=== PATIENT | female | born 1950 | race Caucasian/White ===

== ENCOUNTER 2016-03-07 13:07 | Emergency (ER) | payer OTHER ==
[~2016-03-07] VITALS: Ht 182.9 cm; Wt 122.0 kg
[~2016-03-07 13:07] MED LIST: CHOL20009 PO; CLB/200 PO; CYAN10005 PO; METO50TA16 PO; PRLSR20 PO
[2016-03-07 13:21] VITALS: Ht 182.9 cm; Wt 122.0 kg
[2016-03-07] MEDS ORDERED: PRED20TA PO (13:45)
[2016-03-07] MEDS ORDERED: GABA-112 PO (13:45)
[2016-03-07] MEDS ORDERED: OXYCODONE HCL IR 5 MG TAB (IMMEDIATE RELEASE) PO STA (13:51)
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
[2016-03-07] MEDS ORDERED: OXYC1TAB3 PO (16:12)
[2016-03-07 16:25] VITALS: BP 140/81; PULSE 69; TEMP 36.5; O2SAT 97
== END 2016-03-07 16:30 | disposition home or self-care (01) ==
LOC: EDBD 13:07 → C.EDB 13:08
DX: S09.90XA Unspecified injury of head, initial encounter (principal); S16.1XXA Strain of muscle, fascia and tendon at neck level, initial encounter; Z96.653 Presence of artificial knee joint, bilateral; I10 Essential (primary) hypertension; F17.200 Nicotine dependence, unspecified, uncomplicated; V43.52XA Car driver injured in collision with other type car in traffic accident, initial encounter; Y93.89 Activity, other specified; Y92.89 Other specified places as the place of occurrence of the external cause; Y99.8 Other external cause status

== ENCOUNTER 2017-05-17 19:50 | Inpatient (IN) | payer OTHER ==
[~2017-05-17] VITALS: Ht 182.9 cm; Wt 130.7 kg
[~2017-05-17 19:50] MED LIST changes: -CHOL20009 PO; -CYAN10005 PO; +GABA-112 PO; +PRED20TA PO
[2017-05-17] MEDS ORDERED: AZITHROMYCIN 250 MG TAB ONE (21:42)
[2017-05-17] MEDS ORDERED: METHYLPREDNISOLONE 125 MG VIAL ONE (21:42)
[2017-05-17 23:46] LABS: BASO % 0.8 %; BASO ABS # 0.08 K/uL (0-0.2); EOS % 2.8 %; EOS ABS # 0.28 K/uL (0-0.5); HEMATOCRIT 44.3 % (37-47); IG# 0.01 K/uL (0.00-0.02); LYMPH % 28.3 %; LYMPH ABS # 2.79 K/uL (1.2-3.4); MEAN CELL VOLUME 90.4 fL (80-100); MEAN CORPUSCULAR HEMOGLOBIN 32.7 pg (25-34); MEAN CORPUSCULAR HGB CONC 36.1 g/dl (32-36); MEAN PLATELET VOLUME 10.4 fL (7.4-10.4); MONO % 5.5 %; MONO ABS # 0.54 K/uL (0.11-0.59); NEUT % 62.5 %; NEUT ABS # 6.17 K/uL (1.4-6.5); PLATELET COUNT 145 K/uL (130-400); RED CELL DISTRIBUTION WIDTH CV 13.5 % (11.5-14.5); RED CELL DISTRIBUTION WIDTH SD 44.1 fL (36.4-46.3); WHITE BLOOD COUNT 9.87 K/uL (4.8-10.8)
[2017-05-17 23:49] LABS: INFLUENZA B ANTIGEN Neg for Influ B (NEG)
[2017-05-17 23:50] LABS: ALBUMIN 3.3 gm/dl (3.4-5.0); ALKALINE PHOSPHATASE 158 U/L (45-117); ALT/SGPT 53 U/L (12-78); AST/SGOT 28 U/L (15-37); BLOOD UREA NITROGEN 15 mg/dl (7-18); CALCIUM 9.4 mg/dl (8.5-10.1); CARBON DIOXIDE 24 mmol/L (21-32); CKMB 1.5 ng/ml (0.5-3.6); CREATININE 1.17 mg/dl (0.60-1.20); GLUCOSE 158 mg/dl (70-99); LIPASE 140 U/L (73-393); POTASSIUM 4.2 mmol/L (3.5-5.1); SODIUM 136 mmol/L (136-145); TOTAL PROTEIN 7.7 gm/dl (6.4-8.2)
[2017-05-18] VITALS (12 sets, daily range): BP systolic 112–130; BP diastolic 70–85; PULSE 84–106; TEMP 36.4–36.9; O2SAT 90–96; Ht 182.9 cm; Wt 130.7 kg
--- NOTE | 2017-05-18 00:01 | EMERGENCY ROOM VISIT NOTE ---
History Report prepared by [place]: Coral Lopez Under the Supervision of: Dr. Sabino Garcia M.D. First contact with patient: 23:44 Chief Complaint: SHORTNESS OF BREATH Stated Complaint: SOB,PAIN History of Present Illness The patient is a 66 year old female who presents to the Emergency Room with complaints of worsening shortness of breath that has been going on for the last 4-5 days. She reports a history of COPD and being overweight. The patient states that she is not on oxygen at home, but she uses a nebulizer which helps reduce some of her symptom. She reports that she has been coughing up a large amount of mucous. The patient states that her current discomfort feels like COPD. She denies being on any blood thinners, but reports being a heavy smoker. Source of History: patient Onset: 4-5 days Position: other (respiratory) Quality: other (shortness of breath) Timing: worsening Associated Symptoms: + cough (large amounts of muscous) Review of Systems See HPI for pertinent positives & negatives. A total of 10 systems reviewed and were otherwise negative. Past Medical & Surgical Medical Problems: (1) COPD exacerbation (2) Elevated troponin (3) Hypertension Surgical Problems: (1) H/O total knee replacement Family History Patient reports no known family medical history. No pertinent family history. Social History Smoking Status: Current Every Day Smoker Alcohol Use: none Drug Use: none Marital Status: Housing Status: lives with family Occupation Status: employed Current/Historical Medications Scheduled Celecoxib (CeleBREX), 200 MG PO DAILY Metoprolol Tartrate (Lopressor) (Lopressor), 50 MG PO QPM Omeprazole (Prilosec), 20 MG PO BID Allergies Coded Allergies: No Known Allergies (Unverified , 03/07/16) Physical Exam Vital Signs Date Time Temp Pulse Resp B/P (MAP) Pulse Ox O2 Delivery O2 Flow Rate FiO2 05/18/17 01:52 111 19 93 Nasal Cannula 2.0 05/18/17 01:45 94 Nasal Cannula 2.0 05/18/17 00:52 112 26 91 Nasal Cannula 2.0 05/18/17 00:47 170/96 05/18/17 00:11 100 18 137/87 90 Room Air 05/17/17 23:25 103 Physical Exam GENERAL: Awake, alert, well-appearing, in no acute distress HENT: Normocephalic, atraumatic. Oropharynx unremarkable. EYES: Normal conjunctiva. Sclera non-icteric. NECK: Supple. No nuchal rigidity. FROM. No JVD. RESPIRATORY: Bilateral wheezes at the bases. CARDIAC: Regular rate, normal rhythm. Extremities warm and well perfused. Pulses equal. ABDOMEN: Soft, non-distended. No tenderness to palpation. No rebound or guarding. No masses. RECTAL: Deferred. MUSCULOSKELETAL: Chest examination reveals no tenderness. The back is symmetrical on inspection without obvious abnormality. There is no CVA tenderness to palpation. No joint edema. LOWER EXTREMITIES: Calves are equal size bilaterally and non-tender. No edema. No discoloration. NEURO: Normal sensorium. No sensory or motor deficits noted. SKIN: No rash or jaundice noted. Medical Decision & Procedures ER Provider Diagnostic Interpretation: CHEST ONE VIEW PORTABLE CLINICAL HISTORY: SOB dyspnea COMPARISON STUDY: No previous studies for comparison. FINDINGS: Moderate emphysematous change. Slight interstitial prominence left base. Lungs otherwise appear clear. There are no focal or consolidative infiltrates. IMPRESSION: Emphysematous change. Nonspecific interstitial prominence left base. The above report was generated using voice recognition software. It may contain grammatical, syntax or spelling errors. Laboratory Results Test 05/17/17 21:22 05/17/17 21:39 05/18/17 01:12 Estimated Average Glucose 192 mg/dl Hemoglobin A1c 8.3 % (4.5-5.6) Total Bilirubin 0.3 mg/dl (0.2-1) Direct Bilirubin < 0.1 mg/dl (0-0.2) Aspartate Amino Transf (AST/SGOT) 28 U/L (15-37) Alanine Aminotransferase (ALT/SGPT) 53 U/L (12-78) Alkaline Phosphatase 158 U/L (45-117) Total Creatine Kinase 43 U/L (26-192) Creatine Kinase MB 1.5 ng/ml (0.5-3.6) Creatine Kinase MB Ratio 3.5 (0-3.0) Total Protein 7.7 gm/dl (6.4-8.2) Albumin 3.3 gm/dl (3.4-5.0) Lipase 140 U/L (73-393) Influenza Type A Antigen Neg for Influ A (NEG) Influenza Type B Antigen Neg for Influ B (NEG) Influenza Type A (RT-PCR) Neg for Influ A (NEG) Influenza Type B (RT-PCR) Neg for Influ B (NEG) Magnesium Level 1.8 mg/dl (1.8-2.4) Troponin I 0.080 ng/ml (0-0.045) Thyroid Stimulating Hormone (TSH) 1.020 uIu/ml (0.300-4.500) Labs reviewed by ED physician. Medications Administered Medications (Trade) Dose Ordered Sig/Lilia Route Start Time Stop Time Status Last Admin Dose Admin Ipratropium [place] (Atrovent 0.02% 0.5MG/2.5ML Neb) 0.5 mg NOW STAT INH 05/18/17 01:51 05/18/17 01:52 DC 05/18/17 07:21 0.5 MG Levalbuterol (Xopenex 1.25MG/ 0.5ML Neb) 1.25 mg NOW STAT INH 05/18/17 01:51 05/18/17 01:52 DC 05/18/17 07:21 1.25 MG ECG Per My Interpretation Indication: SOB/dyspnea Rate (beats per minute): 102 Rhythm: sinus tachycardia Findings: 1st degree AV block, RBBB, other (Old septal infarct, no ST elevation or depression) ED Course 2110: Past medical records reviewed. The patient was evaluated in room A9. A complete history and physical examination was performed. 2307: I reevaluated the patient, who states she is feeling significantly better. Medical Decision Differential diagnosis: Etiologies such as infections, reactive airway disease, pneumonia, pneumothorax , COPD, CHF, cardiac ischemia, pulmonary embolism, musculoskeletal, gastrointestinal, as well as others were entertained. This is a 66-year-old female who presents the emergency department complaining of shortness of breath. The patient has a history of COPD and feels that this is a COPD exacerbation. She can notes that she cannot walk longer than 10 feet without becoming tired. She was given Solu-Medrol along with an hour-long breathing treatment here in the emergency department. I will note that the patient is feeling better however her troponin is elevated for this reason I discussed the case with the hospitalist service who agreed to admit the patient. Patient was in agreement with the treatment plan. Medication Reconcilliation Current Medication List: was personally reviewed by me Impression Primary Impression: Hypoxia Scribe Attestation The scribe's documentation has been prepared under my direction and personally reviewed by me in its entirety. I confirm that the note above accurately reflects all work, treatment, procedures, and medical decision making performed by me. Departure Information Dispostion Still a Patient Referrals Jacob Enciso M.D. (MEDICAL) (PCP) Patient Instructions My [facility]
[2017-05-18] MEDS ORDERED: OPTIRAY 320 IV PRN (01:00)
[2017-05-18] MEDS ORDERED: LEVALBUTEROL/IPRATROPIUM NEB INH STA (01:00)
[2017-05-18] MEDS ORDERED: LEVALBUTEROL/IPRATROPIUM NEB INH PRN (01:00)
[2017-05-18 01:37] LABS: PTT PATIENT 27.3 SECONDS (21.0-31.0)
[2017-05-18] MEDS ORDERED: IPRATROPIUM BROMIDE NEB SOLN 0.02% 2.5 ML VIAL INH STA (01:51)
[2017-05-18] MEDS ORDERED: LEVALBUTEROL 1.25MG/0.5ML NEB INH STA (01:51)
[2017-05-18] MEDS ORDERED: IPRATROPIUM BROMIDE NEB SOLN 0.02% 2.5 ML VIAL INH PRN (02:00)
[2017-05-18] MEDS ORDERED: LEVALBUTEROL 1.25MG/0.5ML NEB INH PRN (02:00)
[2017-05-18] MEDS ORDERED: ENOXAPARIN 40 MG/0.4 ML SYR SC SCH (02:15)
[2017-05-18] MEDS ORDERED: PROCHLORPERAZINE INJ 5 MG in SYRINGE 4 ML IV PRN (02:15)
[2017-05-18] MEDS ORDERED: ACETAMINOPHEN 325 MG TAB PO PRN (02:15)
[2017-05-18] MEDS ORDERED: TRAMADOL HCL 50 MG TAB PO PRN (02:15)
[2017-05-18] MEDS ORDERED: SODIUM CHLORIDE 0.9% 1000ML 1,000 ML IV ONE (02:15)
[2017-05-18] MEDS ORDERED: GUAIFENESIN 600 MG TABCR PO ONE (02:34)
[2017-05-18] MEDS ORDERED: HEPARIN IV BOLUS 7,000 UNIT in SYRINGE 0 ML IV ONE (03:45)
[2017-05-18] MEDS ORDERED: MAGNESIUM SULFATE 1GM / D5W 1 GM in PREMIXED IN D5W 100 ML IV ONE (03:45)
[2017-05-18 04:08] LABS: INFLUENZA A PCR Neg for Influ A (NEG); INFLUENZA B PCR Neg for Influ B (NEG)
[2017-05-18] MEDS: HEPARIN 25,000 UNIT/500ML D5W 500 ML IV SCH ×2 (04:26→21:46)
[2017-05-18] MEDS ORDERED: METOPROLOL TARTRATE 25 MG TAB PO ONE (05:37)
[2017-05-18] MEDS ORDERED: INSULIN ASPART 100 UNITS/ML 3 ML PEN SC ONE (05:52)
[2017-05-18] MEDS ORDERED: INSULIN GLARGINE SOLOSTAR 100 UNITS/ML 3 ML PEN SC ONE ×2 (05:52→07:47)
[2017-05-18] MEDS ORDERED: GLUCAGON FOR INJ 1 MG VIAL SQ PRN (06:00)
[2017-05-18] MEDS ORDERED: GLUCOSE 10 TABS/TUBE PO PRN (06:00)
[2017-05-18] MEDS ORDERED: DEXTROSE 50% 50 ML SYR IV PRN (06:00)
[2017-05-18] MEDS ORDERED: GLUCOSE 40% GEL 15 GM TUBE PO PRN (06:00)
--- NOTE | 2017-05-18 06:23 | DIAGNOSTIC IMAGING REPORT ---
VENOUS DOPPLER LWR EXT BILA HISTORY: Pain. Edema. leg swelling COMPARISON STUDY: None. FINDINGS: The right leg is negative for deep venous thrombosis. Left leg shows nonocclusive thrombus within the left popliteal vein. There is involvement of the proximal posterior tibial vein. All remaining deep venous structures of the left leg are unremarkable. IMPRESSION: 1. Right leg is negative for deep venous embolus. 2. The left leg is positive for deep venous thrombosis involving the left popliteal and proximal posterior tibial vein. The above report was generated using voice recognition software. It may contain grammatical, syntax or spelling errors. Electronically signed by: Maxwell Stephens M.D. 05/18/2017 6:21 AM Dictated Date/Time: 05/18/2017 6:17 AM
[2017-05-18 06:50] LABS: BASO % 0.3 %; BASO ABS # 0.02 K/uL (0-0.2); EOS % 0.3 %; EOS ABS # 0.02 K/uL (0-0.5); IG# 0.01 K/uL (0.00-0.02); LYMPH % 11.2 %; MONO % 1.5 %; MONO ABS # 0.11 K/uL (0.11-0.59); NEUT % 86.6 %; NEUT ABS # 6.16 K/uL (1.4-6.5)
--- NOTE | 2017-05-18 06:59 | DIAGNOSTIC IMAGING REPORT ---
CHEST ONE VIEW PORTABLE CLINICAL HISTORY: SOB dyspnea COMPARISON STUDY: No previous studies for comparison. FINDINGS: Moderate emphysematous change. Slight interstitial prominence left base. Lungs otherwise appear clear. There are no focal or consolidative infiltrates. IMPRESSION: Emphysematous change. Nonspecific interstitial prominence left base. The above report was generated using voice recognition software. It may contain grammatical, syntax or spelling errors. Electronically signed by: Maxwell Stephens M.D. 05/18/2017 6:57 AM Dictated Date/Time: 05/18/2017 6:56 AM
[2017-05-18 07:02] LABS: HEMOGLOBIN A1C 8.3 % (4.5-5.6)
[2017-05-18 07:03] LABS: CALCIUM 9.2 mg/dl (8.5-10.1); CREATININE 1.25 mg/dl (0.60-1.20)
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
[2017-05-18 07:36] LABS: HEMATOCRIT 44.3 % (37-47); HEMOGLOBIN 15.7 g/dL (12.0-16.0); MEAN CELL VOLUME 91.5 fL (80-100); MEAN CORPUSCULAR HEMOGLOBIN 32.4 pg (25-34); MEAN CORPUSCULAR HGB CONC 35.4 g/dl (32-36); PLATELET COUNT 152 K/uL (130-400); RED CELL DISTRIBUTION WIDTH CV 13.5 % (11.5-14.5); RED CELL DISTRIBUTION WIDTH SD 45.5 fL (36.4-46.3); WHITE BLOOD COUNT 7.12 K/uL (4.8-10.8)
--- NOTE | 2017-05-18 07:40 | DIAGNOSTIC IMAGING REPORT ---
CT ANGIOGRAM OF THE CHEST CLINICAL HISTORY: Dyspnea. Atypical chest pain. COMPARISON STUDY: Chest x-ray dated 05/09/2017. TECHNIQUE: Following the IV administration of 91 cc of Optiray 320, CT angiogram of the chest was performed from the upper abdomen to the thoracic inlet utilizing the pulmonary embolus protocol. Images are reviewed in the axial, sagittal, and coronal planes. 3-D MIPS images are created and assessed. IV contrast was administered without complication. A dose lowering technique was utilized adhering to the principles of ALARA. The examination is degraded by large body habitus, and by streak artifact from the body wall abutting the CT gantry. CT DOSE: 539.76 mGycm FINDINGS: Thyroid: Imaged portions of the thyroid gland appear mildly enlarged and heterogeneous. Small low-attenuation nodules are identified. The largest measures 1.6 cm seen in the left lobe on image #220. Thoracic aorta: There is mild atherosclerotic calcification of the thoracic aorta, which is normal in caliber and demonstrates standard 3-vessel arch anatomy. A small ductus bump is suggested. No dissection is seen. Pulmonary vasculature: The main pulmonary arteries appear dilated suggesting pulmonary artery hypertension. There are extensive bilateral pulmonary emboli. Thrombus is seen in the distal right main pulmonary artery. This extends into the right upper, middle, and lower lobe pulmonary arteries into segmental and subsegmental branches. Thrombus is seen within the distal left main pulmonary artery. This extends into the left upper and left lower lobe pulmonary arteries, and into segmental and subsegmental branches of the left lower lobe pulmonary artery. Heart: The heart is mildly enlarged and without pericardial effusion. Lungs and pleural spaces: Evaluation of lung parenchyma is modestly degraded by motion artifact. No airspace consolidation or pleural effusion is identified. Tiny calcified granulomas are present at the lung bases. There is minimal dependent atelectasis. The trachea and central airways are clear. Mediastinum: There is no mediastinal lymphadenopathy. Mallory: Clear. Axillae: There is no axillary lymphadenopathy. Upper abdomen: The liver is enlarged and steatotic. A tiny hiatal hernia is noted. 1.3 cm cyst arises from the upper pole of the right kidney. Skeletal structures: The skeletal structures are osteopenic. No lytic or blastic bony lesions are seen. Degenerative change and scoliosis are noted in the thoracic spine. IMPRESSION: 1. Extensive bilateral pulmonary emboli as above. 2. Cardiomegaly with evidence of pulmonary artery hypertension. 3. The lungs are clear. 4. Hepatic steatosis. 5. A 1.6 cm low-attenuation nodule is seen in the left thyroid lobe. Follow-up with a nonemergent thyroid ultrasound is recommended. 6. Additional findings as above. Electronically signed by: Fred Modi M.D. 05/18/2017 7:39 AM Dictated Date/Time: 05/18/2017 7:32 AM
[2017-05-18 08:14] LABS: POTASSIUM 4.5 mmol/L (3.5-5.1)
[2017-05-18] MEDS: DOXYCYCLINE HYCLATE 100 MG CAP PO SCH ×2 (08:20→21:22)
[2017-05-18] MEDS: PANTOprazole SOD 40 MG TAB PO SCH ×2 (08:20→21:22)
[2017-05-18] MEDS ORDERED: INSULIN PROTOCOL GOAL RANGE ONE (08:30)
[2017-05-18] MEDS ORDERED: MODERATE STRESS LEVEL ONE (08:30)
[2017-05-18] MEDS ORDERED: INSULIN IV INFUSION PROTOCOL SCH (08:46)
[2017-05-18] MEDS: IPRATROPIUM BROMIDE NEB SOLN 0.02% 2.5 ML VIAL INH SCH ×3 (09:00→19:06)
[2017-05-18] MEDS ORDERED: METOPROLOL TARTRATE 25 MG TAB PO SCH (09:00)
[2017-05-18] MEDS ORDERED: LEVALBUTEROL/IPRATROPIUM NEB INH SCH (09:00)
[2017-05-18] MEDS: LEVALBUTEROL 1.25MG/0.5ML NEB INH SCH ×3 (09:00→19:06)
[2017-05-18] MEDS ORDERED: INSULIN REGULAR 250 UNITS in SODIUM CHLORIDE 0.9% 250ML 250 ML IV SCH (09:30)
[2017-05-18] MEDS ORDERED: INSULIN HUMAN REGULAR IV BOLUS 3.5 UNIT in SYRINGE 0 ML IV SCH (09:30)
[2017-05-18 10:50] LABS: PTT PATIENT 58.1 SECONDS (21.0-31.0)
[2017-05-18] MEDS ORDERED: INSULIN ASPART 100 UNITS/ML 3 ML PEN SC SCH ×3 (11:00→12:00)
[2017-05-18] MEDS ORDERED: PERFLUTREN LIPID MICROSPHERE (DEFINITY) IV ONE (11:35)
[2017-05-18] MEDS: INSULIN ASPART 100 UNITS/ML 3 ML PEN SC SCH ×3 (11:53→21:00)
--- NOTE | 2017-05-18 16:40 | ECHOCARDIOGRAM REPORT ---
*NOTICE TO RECEIVING [employer] This information is strictly Confidential and protected under [place] law. [place] law prohibits you from making any further disclosure of this information unless further disclosure is expressly permitted by the written consent of the person to whom it pertains or is authorized by law. A general authorization for the release of medical or other information is not sufficient for this purpose. Hospital accepts no responsibility if the information is made available to any other person, INCLUDING THE PATIENT. Interpretation Summary * Name: MELINDA VÁSQUEZ Study Date: 05/18/2017 10:29 AM BP: 128/82 mmHg * Patient Location: 230-1 HR: 106 * : 1950 (M/d/yyyy) Gender: Female Height: 72 in * Age: 66 yrs Ethnicity: [place] Weight: 293 lb * Ordering Physician: Michael White * Referring Physician: Self, Referred * Performed By: Katey Mcpherson RDCS * * Reason For Study: Pulmonary Embolism, Right Heart Strain * BSA: 2.5 m2 * -- Conclusions -- * The left ventricular cavity is small. * There is mild concentric left ventricular hypertrophy. * No regional wall motion abnormalities noted. * Ejection Fraction = 65-70%. * The right ventricle is not well visualized. * The right ventricle is grossly normal size. * Right ventricular systolic pressure is elevated at 40-50mmHg. Procedure Details * A complete two-dimensional transthoracic echocardiogram was performed (2D, M-mode, Doppler and color flow Doppler). * The study was technically difficult. * There were technical limitations due to patient'spoor positioning * The study was technically difficult, but visualization was adequate with the administration of Definity ultrasound contrast. * A contrast injection of Definity was performed to improve assessment of LV function. * Contrast was injected into an intravenous site in the right arm. * One vial of Definity ultrasound contrast was diluted in normal saline to a total volume of 10 ml. A total of '1' ml of solution was administered during imaging. * Lot # [id number] of Definity utilized for procedure. * Expiration date 1APR19. * The attending nurse who injected the contrast agent was Martina Rodrigues RN. Left Ventricle * The left ventricular cavity is small. * There is mild concentric left ventricular hypertrophy. * Ejection Fraction = 65-70%. * No regional wall motion abnormalities noted. Right Ventricle * The right ventricle is not well visualized. * The right ventricle is grossly normal size. Tricuspid Valve * The tricuspid valve is not well visualized. * Right ventricular systolic pressure is elevated at 40-50mmHg. Aortic Valve * The aortic valve is tricuspid. The leaflet thickness if normal. There is no aortic stenosis, and no significant insufficiency. * Aortic valve sclerosis moderate, without significant aortic valvular stenosis. * There is no significant aortic regurgitation. Great Vessels * The aortic root is normal size. Left Ventricular Diastolic Function * Grade I diastolic dysfunction, (abnormal relaxation pattern). MMode 2D Measurements and Calculations IVSd 1.2 cm IVSs 1.3 cm LVIDd 2.8 cm LVIDs 1.9 cm LVPWd 1.1 cm LVPWs 1.3 cm IVS/LVPW 1.2 FS 32.7 % EDV(Teich) 29.3 ml ESV(Teich) 10.8 ml EF(Teich) 63.0 % EDV(cubed) 21.7 ml ESV(cubed) 6.6 ml EF(cubed) 69.5 % % IVS thick 0.76 % % LVPW thick 25.2 % LV mass(C)d 93.2 grams LV mass(C)dI 37.2 grams/m\S\2 LV mass(C)s 69.5 grams LV mass(C)sI 27.7 grams/m\S\2 SV(Teich) 18.5 ml SI(Teich) 7.4 ml/m\S\2 SV(cubed) 15.1 ml SI(cubed) 6.0 ml/m\S\2 Ao root diam 3.2 cm Ao root area 7.8 cm\S\2 ACS 1.9 cm LA dimension 3.5 cm asc Aorta Diam 3.1 cm LA/Ao 1.1 LVAd ap4 32.6 cm\S\2 LVLd ap4 8.2 cm EDV(MOD-sp4) 106.2 ml EDV(sp4-el) 110.6 ml LVAs ap4 16.8 cm\S\2 LVLs ap4 7.4 cm ESV(MOD-sp4) 33.7 ml ESV(sp4-el) 32.3 ml EF(MOD-sp4) 68.3 % EF(sp4-el) 70.8 % LVAd ap2 22.8 cm\S\2 LVLd ap2 8.4 cm EDV(MOD-sp2) 50.7 ml EDV(sp2-el) 52.6 ml LVAs ap2 11.6 cm\S\2 LVLs ap2 7.1 cm ESV(MOD-sp2) 16.7 ml ESV(sp2-el) 16.0 ml EF(MOD-sp2) 67.1 % EF(sp2-el) 69.6 % LVLd %diff 2.6 % EDV(MOD-bp) 74.5 ml LVLs %diff -4.15 % ESV(MOD-bp) 23.9 ml EF(MOD-bp) 67.9 % SV(MOD-sp4) 72.5 ml SI(MOD-sp4) 28.9 ml/m\S\2 SV(MOD-sp2) 34.0 ml SI(MOD-sp2) 13.6 ml/m\S\2 SV(MOD-bp) 50.5 ml SI(MOD-bp) 20.2 ml/m\S\2 SV(sp4-el) 78.2 ml SI(sp4-el) 31.2 ml/m\S\2 SV(sp2-el) 36.6 ml SI(sp2-el) 14.6 ml/m\S\2 Doppler Measurements and Calculations MV E max flores 103.7 cm/sec MV A max flores 40.5 cm/sec MV E/A 2.6 MV dec time 0.18 sec Ao V2 max 144.5 cm/sec Ao max PG 8.3 mmHg Ao max PG (full) 4.2 mmHg LV V1 max PG 4.1 mmHg LV V1 max 101.4 cm/sec PA V2 max 101.9 cm/sec PA max PG 4.2 mmHg TR max flores 326.8 cm/sec
--- NOTE | 2017-05-18 19:52 | Progress Note ---
Medicine Progress Note Date & Time of Visit: May 18, 2017 at 10:40 . Subjective Admitted last evening with cough and shortness of breath. Found to have bilateral pulmonary emboli and started on IV heparin. Received IV methylprednisolone in the ED. Blood sugars this morning greater than 400. No prior history of diabetes. Cough, dyspnea, chest discomfort improved. No fever. No nausea or vomiting. No diarrhea. No urinary symptoms. Patient concerned about duration of hospital stay and medication expenses related to her new diagnoses. . Objective Last 8 Hrs Date Time Temp Pulse Resp B/P (MAP) Pulse Ox O2 Delivery O2 Flow Rate FiO2 05/18/17 19:29 36.6 98 20 112/74 (87) 93 Room Air 05/18/17 19:09 91 16 94 Room Air 05/18/17 16:00 90 Room Air 05/18/17 15:59 96 90 05/18/17 15:40 36.5 96 22 123/84 (97) 90 Room Air 05/18/17 14:23 84 16 94 Room Air 05/18/17 12:11 36.9 22 130/85 (100) 95 Room Air 05/18/17 12:00 Nasal Cannula 2.0 Physical Exam: General-lying in bed, no acute distress Lungs-few scattered rhonchi; no respiratory distress Cardiovascular- RRR; no gallop appreciated; no JVD; trace pretibial edema Abdomen- + bowel sounds, soft, nontender Extremities- no cyanosis; no calf tenderness Neuro- alert, oriented Skin- warm & dry . Laboratory Results: Last 24 Hours Test 05/17/17 21:22 05/17/17 21:39 05/18/17 01:12 05/18/17 05:35 White Blood Count 9.87 K/uL 7.12 K/uL Red Blood Count 4.90 M/uL 4.84 M/uL Hemoglobin 16.0 g/dL 15.7 g/dL Hematocrit 44.3 % 44.3 % Mean Corpuscular Volume 90.4 fL 91.5 fL Mean Corpuscular Hemoglobin 32.7 pg 32.4 pg Mean Corpuscular Hemoglobin Concent 36.1 g/dl 35.4 g/dl Platelet Count 145 K/uL 152 K/uL Mean Platelet Volume 10.4 fL 11.0 fL Neutrophils (%) (Auto) 62.5 % 86.6 % Lymphocytes (%) (Auto) 28.3 % 11.2 % Monocytes (%) (Auto) 5.5 % 1.5 % Eosinophils (%) (Auto) 2.8 % 0.3 % Basophils (%) (Auto) 0.8 % 0.3 % Neutrophils # (Auto) 6.17 K/uL 6.16 K/uL Lymphocytes # (Auto) 2.79 K/uL 0.80 K/uL Monocytes # (Auto) 0.54 K/uL 0.11 K/uL Eosinophils # (Auto) 0.28 K/uL 0.02 K/uL Basophils # (Auto) 0.08 K/uL 0.02 K/uL RDW Standard Deviation 44.1 fL 45.5 fL RDW Coefficient of Variation 13.5 % 13.5 % Immature Granulocyte % (Auto) 0.1 % 0.1 % Immature Granulocyte # (Auto) 0.01 K/uL 0.01 K/uL Sodium Level 136 mmol/L 131 mmol/L Potassium Level 4.2 mmol/L mmol/L Chloride Level 104 mmol/L 100 mmol/L Carbon Dioxide Level 24 mmol/L 21 mmol/L Anion Gap 8.0 mmol/L 10.0 mmol/L Blood Urea Nitrogen 15 mg/dl 17 mg/dl Creatinine 1.17 mg/dl 1.25 mg/dl Estimated GFR () 56.2 51.9 Estimated GFR (Non- 48.5 44.8 BUN/Creatinine Ratio 13.1 13.4 Random Glucose 158 mg/dl 440 mg/dl Estimated Average Glucose 192 mg/dl Hemoglobin A1c 8.3 % Calcium Level 9.4 mg/dl 9.2 mg/dl Total Bilirubin 0.3 mg/dl Direct Bilirubin < 0.1 mg/dl Aspartate Amino Transf (AST/SGOT) 28 U/L Alanine Aminotransferase (ALT/SGPT) 53 U/L Alkaline Phosphatase 158 U/L Total Creatine Kinase 43 U/L Creatine Kinase MB 1.5 ng/ml Creatine Kinase MB Ratio 3.5 Troponin I 0.121 ng/ml 0.080 ng/ml Total Protein 7.7 gm/dl Albumin 3.3 gm/dl Lipase 140 U/L Influenza Type A Antigen Neg for Influ A Influenza Type B Antigen Neg for Influ B Influenza Type A (RT-PCR) Neg for Influ A Influenza Type B (RT-PCR) Neg for Influ B Activated Partial Thromboplast Time 27.3 SECONDS Partial Thromboplastin Ratio 1.1 Magnesium Level 1.8 mg/dl Thyroid Stimulating Hormone (TSH) 1.020 uIu/ml Large Platelets 1+ Est Creatinine Clear Calc Drug Dose 67.9 ml/min Beta-Hydroxybutyric Acid mg/dL Test 05/18/17 05:39 05/18/17 05:42 05/18/17 07:49 05/18/17 08:51 Bedside Glucose 410 mg/dl 429 mg/dl 463 mg/dl Potassium Level 4.5 mmol/L Beta-Hydroxybutyric Acid 1.52 mg/dL Test 05/18/17 10:21 05/18/17 10:41 05/18/17 11:38 05/18/17 12:35 Activated Partial Thromboplast Time 58.1 SECONDS Partial Thromboplastin Ratio 2.2 Bedside Glucose 343 mg/dl 295 mg/dl 329 mg/dl Test 05/18/17 13:30 05/18/17 14:35 05/18/17 16:00 05/18/17 17:00 Bedside Glucose 272 mg/dl 147 mg/dl 133 mg/dl 129 mg/dl Test 05/18/17 18:02 05/18/17 18:59 Bedside Glucose 178 mg/dl 111 mg/dl Assessment & Plan PULMONARY EMBOLI / DVT LLE (present on admission) Presented with cough and dyspnea. CTA chest demonstrated bilateral pulmonary emboli. Venous duplex of lower extremities demonstrated DVT involving the left popliteal and posterior tibial veins. Started on IV heparin. Options for oral anticoagulation discussed with patient. Check echocardiogram. Continue IV heparin pending decisions regarding oral therapy. ELEVATED TROPONIN Serum troponin = 0.121. Most likely secondary to pulmonary embolism. HYPERTENSION Continue metoprolol. COPD Smoking cessation counseling. HYPERGLYCEMIA / DM TYPE 2 Random blood sugar in ED 158. Hemoglobin A1c 8.3. No prior history of diabetes. Serum glucose this morning 440 after receiving intravenous methylprednisolone. IV insulin therapy per protocol until blood sugars are under better control, then transition to basal bolus SQ insulin per protocol. Diabetes education. THYROID NODULE Incidental finding on CT chest. Will need outpatient follow-up with ultrasound. VTE PROPHYLAXIS Not indicated in light of acute DVT/PE. DISPOSITION Expected discharge to home. Family Medicine follow-up with Dr. Enciso. . Current Inpatient Medications: Current Inpatient Medications Medications (Trade) Dose Ordered Sig/Lilia Route Start Time Stop Time Status Last Admin Dose Admin Ioversol (Optiray 320) 100 ml UD PRN IV 05/18/17 01:00 05/22/17 00:59 Ipratropium [place] (Atrovent 0.02% 0.5MG/2.5ML Neb) 0.5 mg Q4H PRN INH 05/18/17 02:00 06/17/17 01:59 Levalbuterol (Xopenex 1.25MG/ 0.5ML Neb) 1.25 mg Q4H PRN INH 05/18/17 02:00 06/17/17 01:59 Acetaminophen (Tylenol Tab) 650 mg Q4H PRN PO 05/18/17 02:15 06/17/17 02:14 Tramadol HCl (Ultram Tab) 25 mg Q6H PRN PO 05/18/17 02:15 06/17/17 02:14 Prochlorperazine Edisylate 5 mg/ Syringe 5 ml @ 5 mls/min Q6H PRN IV 05/18/17 02:15 06/17/17 02:14 Doxycycline Hyclate (Vibramycin Cap) 100 mg BID PO 05/18/17 09:00 05/25/17 08:59 05/18/17 08:20 100 MG Pantoprazole Sodium (Protonix Tab) 40 mg BID PO 05/18/17 09:00 06/17/17 08:59 05/18/17 08:20 40 MG Guaifenesin (Mucinex Contr Rel Tab) 600 mg Q12 PO 05/18/17 21:00 06/17/17 20:59 Heparin Sodium/ Dextrose 500 ml @ 32 mls/hr [id number] IV 05/18/17 03:45 06/17/17 03:44 05/18/17 04:26 32 MLS/HR Ipratropium [place] (Atrovent 0.02% 0.5MG/2.5ML Neb) 0.5 mg Q6R INH 05/18/17 09:00 06/17/17 08:59 05/18/17 19:06 0.5 MG Levalbuterol (Xopenex 1.25MG/ 0.5ML Neb) 1.25 mg Q6R INH 05/18/17 09:00 06/17/17 08:59 05/18/17 19:06 1.25 MG Metoprolol Tartrate (Lopressor Tab) 25 mg BID PO 05/18/17 21:00 06/17/17 20:59 Glucose (Glucose 40% Gel) 15-30 GRAMS 15 GRAMS... UD PRN PO 05/18/17 06:00 06/17/17 05:59 Glucose (Glucose Chew Tab) 4-8 Tablets 4 Tabl... UD PRN PO 05/18/17 06:00 06/17/17 05:59 Dextrose (Dextrose 50% 50ML Syringe) 25-50ML OF 50% DW IV FOR... UD PRN IV 05/18/17 06:00 06/17/17 05:59 Glucagon (Glucagon Inj) 1 mg UD PRN SQ 05/18/17 06:00 06/17/17 05:59 Prednisone (PredniSONE TAB) 20 mg DAILY PO 05/19/17 09:00 05/23/17 08:59 Insulin Human Regular 250 units/ Sodium Chloride 252.5 ml @ 0 mls/hr Q24H IV 05/18/17 09:30 06/17/17 09:29 05/18/17 09:28 3.3 MLS/HR Insulin Aspart (novoLOG ASPART) SLIDING SCALE G... ACHS SC 05/18/17 11:00 06/17/17 10:59 05/18/17 17:15 7 UNITS
[2017-05-18] MEDS ORDERED: METOPROLOL TARTRATE 50 MG TAB PO SCH (21:00)
[2017-05-18] MEDS ORDERED: WARFARIN SOD 10 MG TAB PO ONE (21:00)
[2017-05-18] MEDS: METOPROLOL TARTRATE 25 MG TAB PO SCH (21:21)
[2017-05-18] MEDS: GUAIFENESIN 600 MG TABCR PO SCH (21:22)
[2017-05-18] MEDS: INSULIN GLARGINE SOLOSTAR 100 UNITS/ML 3 ML PEN SC SCH (21:26)
[2017-05-18] MEDS ORDERED: GUAIFENESIN SUGAR FREE 200 MG/10 ML UDC PO ONE (23:03)
[2017-05-18] MEDS ORDERED: GUAIFENESIN SUGAR FREE 200 MG/10 ML UDC PO PRN (23:15)
[2017-05-19] VITALS (11 sets, daily range): BP systolic 112–133; BP diastolic 75–87; PULSE 64–100; TEMP 36.4–37; O2SAT 90–96
[2017-05-19] MEDS: IPRATROPIUM BROMIDE NEB SOLN 0.02% 2.5 ML VIAL INH SCH ×4 (01:57→19:19)
[2017-05-19] MEDS: LEVALBUTEROL 1.25MG/0.5ML NEB INH SCH ×4 (01:57→19:19)
[2017-05-19 05:56] LABS: PTT PATIENT 41.3 SECONDS (21.0-31.0)
[2017-05-19] MEDS ORDERED: HEPARIN IV BOLUS 4,000 UNIT in SYRINGE 0 ML IV ONE (06:15)
[2017-05-19 06:25] LABS: CALCIUM 8.8 mg/dl (8.5-10.1); CREATININE 0.91 mg/dl (0.60-1.20); POTASSIUM 3.6 mmol/L (3.5-5.1)
[2017-05-19] MEDS: HEPARIN 25,000 UNIT/500ML D5W 500 ML IV SCH (06:34)
[2017-05-19] MEDS: PANTOprazole SOD 40 MG TAB PO SCH ×2 (08:58→22:34)
[2017-05-19] MEDS: GUAIFENESIN 600 MG TABCR PO SCH ×2 (08:59→22:35)
[2017-05-19] MEDS: METOPROLOL TARTRATE 25 MG TAB PO SCH ×2 (08:59→22:34)
[2017-05-19] MEDS: DOXYCYCLINE HYCLATE 100 MG CAP PO SCH ×2 (08:59→22:35)
[2017-05-19] MEDS ORDERED: INSULIN GLARGINE SOLOSTAR 100 UNITS/ML 3 ML PEN SC SCH ×2 (09:00)
[2017-05-19] MEDS: INSULIN ASPART 100 UNITS/ML 3 ML PEN SC SCH ×4 (09:02→21:00)
[2017-05-19] MEDS: INSULIN GLARGINE SOLOSTAR 100 UNITS/ML 3 ML PEN SC SCH ×2 (09:03→22:36)
[2017-05-19] MEDS ORDERED: LOVENOX TEACHING KIT SCH (10:00)
[2017-05-19] MEDS: ENOXAPARIN 120 MG/0.8 ML SYR SQ SCH ×2 (10:48→22:34)
--- NOTE | 2017-05-19 23:18 | Progress Note ---
Medicine Progress Note Date & Time of Visit: May 19, 2017 at 16:00 . Subjective Feels better. Cough, dyspnea, chest discomfort improved. No fever. No nausea, vomiting, diarrhea. No abnormal bruising or bleeding. Blood sugars improved. . Objective Last 8 Hrs Date Time Temp Pulse Resp B/P (MAP) Pulse Ox O2 Delivery O2 Flow Rate FiO2 05/19/17 20:37 93 Room Air 05/19/17 19:30 36.6 87 20 127/84 (98) 92 Room Air 05/19/17 19:25 70 14 93 Room Air 05/19/17 16:00 Room Air Physical Exam: General- lying in bed, no acute distress Lungs-essentially clear; no respiratory distress Cardiovascular- RRR; no gallop appreciated; no JVD; trace pretibial edema Abdomen- + bowel sounds, soft, nontender Extremities- no cyanosis; no calf tenderness Neuro- alert, oriented Skin- warm & dry . Laboratory Results: Last 24 Hours Test 05/19/17 05:32 05/19/17 06:42 05/19/17 11:48 05/19/17 16:30 Prothrombin Time 10.3 SECONDS Prothromb Time International Ratio 1.0 Activated Partial Thromboplast Time 41.3 SECONDS Partial Thromboplastin Ratio 1.6 Sodium Level 137 mmol/L Potassium Level 3.6 mmol/L Chloride Level 105 mmol/L Carbon Dioxide Level 23 mmol/L Anion Gap 9.0 mmol/L Blood Urea Nitrogen 21 mg/dl Creatinine 0.91 mg/dl Est Creatinine Clear Calc Drug Dose 93.2 ml/min Estimated GFR () 76.2 Estimated GFR (Non- 65.7 BUN/Creatinine Ratio 22.8 Random Glucose 172 mg/dl Calcium Level 8.8 mg/dl Bedside Glucose 157 mg/dl 160 mg/dl 100 mg/dl Test 05/19/17 20:24 Bedside Glucose 146 mg/dl Assessment & Plan PULMONARY EMBOLI / DVT LLE (present on admission) Presented with cough and dyspnea. CTA chest demonstrated bilateral pulmonary emboli. Venous duplex of lower extremities demonstrated DVT involving the left popliteal and posterior tibial veins. Started on IV heparin. Options for oral anticoagulation discussed with patient. Echocardiogram demonstrated mildly elevated pressures, no right ventricular enlargement. Transition from IV heparin to SQ enoxaparin. Started on warfarin therapy rather than DOAC because of body weight. ELEVATED TROPONIN Serum troponin = 0.121. Most likely secondary to pulmonary embolism. HYPERTENSION Continue metoprolol. COPD Smoking cessation counseling. HYPERGLYCEMIA / DM TYPE 2 Random blood sugar in ED 158. Hemoglobin A1c 8.3. No prior history of diabetes. Serum glucose this morning 440 after receiving intravenous methylprednisolone. Received IV insulin therapy. Transitioned to basal bolus SQ insulin per protocol. Fasting blood sugar this morning 157. Diabetes education. THYROID NODULE Incidental finding on CT chest. Check TSH. Will need outpatient follow-up with ultrasound. VTE PROPHYLAXIS Not indicated in light of acute DVT/PE. DISPOSITION Expected discharge to home. Family Medicine follow-up with Dr. Enciso. . Current Inpatient Medications: Current Inpatient Medications Medications (Trade) Dose Ordered Sig/Lilia Route Start Time Stop Time Status Last Admin Dose Admin Ioversol (Optiray 320) 100 ml UD PRN IV 05/18/17 01:00 05/22/17 00:59 Ipratropium [place] (Atrovent 0.02% 0.5MG/2.5ML Neb) 0.5 mg Q4H PRN INH 05/18/17 02:00 06/17/17 01:59 Levalbuterol (Xopenex 1.25MG/ 0.5ML Neb) 1.25 mg Q4H PRN INH 05/18/17 02:00 06/17/17 01:59 Acetaminophen (Tylenol Tab) 650 mg Q4H PRN PO 05/18/17 02:15 06/17/17 02:14 Tramadol HCl (Ultram Tab) 25 mg Q6H PRN PO 05/18/17 02:15 06/17/17 02:14 Prochlorperazine Edisylate 5 mg/ Syringe 5 ml @ 5 mls/min Q6H PRN IV 05/18/17 02:15 06/17/17 02:14 Doxycycline Hyclate (Vibramycin Cap) 100 mg BID PO 05/18/17 09:00 05/25/17 08:59 05/19/17 22:35 100 MG Pantoprazole Sodium (Protonix Tab) 40 mg BID PO 05/18/17 09:00 06/17/17 08:59 05/19/17 22:34 40 MG Guaifenesin (Mucinex Contr Rel Tab) 600 mg Q12 PO 05/18/17 21:00 06/17/17 20:59 05/19/17 22:35 600 MG Ipratropium [place] (Atrovent 0.02% 0.5MG/2.5ML Neb) 0.5 mg Q6R INH 05/18/17 09:00 06/17/17 08:59 05/19/17 19:19 0.5 MG Levalbuterol (Xopenex 1.25MG/ 0.5ML Neb) 1.25 mg Q6R INH 05/18/17 09:00 06/17/17 08:59 05/19/17 19:19 1.25 MG Metoprolol Tartrate (Lopressor Tab) 25 mg BID PO 05/18/17 21:00 06/17/17 20:59 05/19/17 22:34 25 MG Glucose (Glucose 40% Gel) 15-30 GRAMS 15 GRAMS... UD PRN PO 05/18/17 06:00 06/17/17 05:59 Glucose (Glucose Chew Tab) 4-8 Tablets 4 Tabl... UD PRN PO 05/18/17 06:00 06/17/17 05:59 Dextrose (Dextrose 50% 50ML Syringe) 25-50ML OF 50% DW IV FOR... UD PRN IV 05/18/17 06:00 06/17/17 05:59 Glucagon (Glucagon Inj) 1 mg UD PRN SQ 05/18/17 06:00 06/17/17 05:59 Insulin Glargine (Lantus Solostar Pen) BSG LANTUS UNITS S... BID SC 05/18/17 21:00 06/17/17 20:59 05/19/17 22:36 25 UNITS Insulin Aspart (novoLOG ASPART) SLIDING SCALE G... ACHS SC 05/18/17 21:00 06/17/17 20:59 05/19/17 17:19 4 UNITS Guaifenesin (Robitussin Sugar Free Syrup) 200 mg Q6H PRN PO 05/18/17 23:15 06/17/17 23:14 05/19/17 22:34 200 MG Enoxaparin Sodium (Lovenox Inj) 120 mg Q12@1000,2200 SQ 05/19/17 10:00 06/18/17 09:59 05/19/17 22:34 120 MG
[2017-05-20] VITALS (10 sets, daily range): BP systolic 120–126; BP diastolic 76–88; PULSE 73–108; TEMP 36.5–36.6; O2SAT 90–95
[2017-05-20] MEDS: IPRATROPIUM BROMIDE NEB SOLN 0.02% 2.5 ML VIAL INH SCH ×3 (01:46→14:53)
[2017-05-20] MEDS: LEVALBUTEROL 1.25MG/0.5ML NEB INH SCH ×3 (01:46→14:53)
[2017-05-20 05:57] LABS: INR 1.2 (0.9-1.1)
[2017-05-20 06:23] LABS: CALCIUM 8.8 mg/dl (8.5-10.1); CREATININE 0.95 mg/dl (0.60-1.20); POTASSIUM 3.7 mmol/L (3.5-5.1)
[2017-05-20] MEDS ORDERED: METFORMIN HCL 500 MG TAB PO SCH (07:30)
[2017-05-20] MEDS: INSULIN ASPART 100 UNITS/ML 3 ML PEN SC SCH ×2 (08:18→11:51)
[2017-05-20] MEDS: DOXYCYCLINE HYCLATE 100 MG CAP PO SCH (08:20)
[2017-05-20] MEDS: METOPROLOL TARTRATE 25 MG TAB PO SCH (08:21)
[2017-05-20] MEDS: GUAIFENESIN 600 MG TABCR PO SCH (08:21)
[2017-05-20] MEDS: PANTOprazole SOD 40 MG TAB PO SCH (08:21)
[2017-05-20] MEDS: INSULIN GLARGINE SOLOSTAR 100 UNITS/ML 3 ML PEN SC SCH (08:23)
[2017-05-20] MEDS ORDERED: WARFARIN SOD 10 MG TAB PO ONE (10:45)
[2017-05-20] MEDS: ENOXAPARIN 120 MG/0.8 ML SYR SQ SCH (11:58)
[2017-05-20] MEDS ORDERED: ENOX1INJ13 SQ (12:21)
[2017-05-20] MEDS ORDERED: GLC500 PO (12:21)
[2017-05-20] MEDS ORDERED: WARF-246 PO (12:21)
--- NOTE | 2017-05-20 12:40 | Progress Note ---
Medicine Progress Note Date & Time of Visit: May 20, 2017 at 12:40 . Subjective Doing well. Ambulating without chest pain or dyspnea. Blood sugars improved. Would like to go home. . Objective Last 8 Hrs Date Time Temp Pulse Resp B/P (MAP) Pulse Ox O2 Delivery O2 Flow Rate FiO2 05/20/17 12:00 Room Air 05/20/17 12:00 95 Room Air 05/20/17 10:51 36.5 73 20 120/76 (91) 94 Room Air 05/20/17 08:00 93 Room Air 05/20/17 07:31 36.6 108 20 124/87 (99) 92 Room Air 05/20/17 07:24 80 14 90 Room Air Physical Exam: General- lying in bed, no acute distress Lungs- essentially clear; no respiratory distress Cardiovascular- RRR; no gallop appreciated; no JVD; trace pretibial edema Abdomen- + bowel sounds, soft, nontender Extremities- no cyanosis; no calf tenderness Neuro- alert, oriented Skin- warm & dry . Laboratory Results: Last 24 Hours Test 05/19/17 16:30 05/19/17 20:24 05/20/17 05:19 05/20/17 07:56 Bedside Glucose 100 mg/dl 146 mg/dl 141 mg/dl Prothrombin Time 12.5 SECONDS Prothromb Time International Ratio 1.2 Sodium Level 138 mmol/L Potassium Level 3.7 mmol/L Chloride Level 106 mmol/L Carbon Dioxide Level 23 mmol/L Anion Gap 9.0 mmol/L Blood Urea Nitrogen 18 mg/dl Creatinine 0.95 mg/dl Est Creatinine Clear Calc Drug Dose 89.9 ml/min Estimated GFR () 72.3 Estimated GFR (Non- 62.4 BUN/Creatinine Ratio 18.5 Random Glucose 128 mg/dl Calcium Level 8.8 mg/dl Test 05/20/17 10:49 Bedside Glucose 129 mg/dl Assessment & Plan PULMONARY EMBOLI / DVT LLE (present on admission) Presented with cough and dyspnea. CTA chest demonstrated bilateral pulmonary emboli. Venous duplex of lower extremities demonstrated DVT involving the left popliteal and posterior tibial veins. Started on IV heparin. Options for oral anticoagulation discussed with patient. Echocardiogram demonstrated elevated RV systolic pressure of 40-50 mm, no right ventricular enlargement. Transitioned from IV heparin to SQ enoxaparin. Started on warfarin therapy rather than DOAC because of body weight. Discharged on enoxaparin 120 mg SQ every 12 hours until INR therapeutic for at least 2 days. Discharge on warfarin 7.5 mg p.o. daily with further dosing per [facility]. Duration of anticoagulation to be determined; at least 6 months of therapy indicated given extent of thromboemboli. Mother has history of venous thromboembolism and is on warfarin therapy. Outpatient hematology consultation mended to determine if further outpatient testing warranted and to make recommendations regarding duration of anticoagulation. Patient advised to discuss cancer screening with her PCP to make certain that she is up-to-date on routine recommendations; she is to report any new or worrisome symptoms. ELEVATED TROPONIN Serum troponin = 0.121. Most likely secondary to pulmonary embolism. HYPERTENSION Continue metoprolol. COPD Smoking cessation counseling. HYPERGLYCEMIA / DM TYPE 2 Random blood sugar in ED 158. Hemoglobin A1c 8.3. No prior history of diabetes. Serum glucose 05/18 was 440 after receiving intravenous methylprednisolone. Received IV insulin therapy. Transitioned to basal bolus SQ insulin per protocol. Fasting blood sugar today = 141. Received diabetes education. Given glucometer and instructions on its use. Discharged on metformin 500 mg p.o. twice daily. Ongoing diabetes education/support. THYROID NODULE 1.6 cm low-attenuation nodule noted in the left lobe of thyroid as incidental finding on CT chest. TSH normal. Will need outpatient follow-up with ultrasound. VTE PROPHYLAXIS Not indicated in light of acute DVT/PE. DISPOSITION Discharge to home. Family Medicine follow-up with Dr. Enciso. . Current Inpatient Medications: Current Inpatient Medications Medications (Trade) Dose Ordered Sig/Lilia Route Start Time Stop Time Status Last Admin Dose Admin Ioversol (Optiray 320) 100 ml UD PRN IV 05/18/17 01:00 05/22/17 00:59 Ipratropium [place] (Atrovent 0.02% 0.5MG/2.5ML Neb) 0.5 mg Q4H PRN INH 05/18/17 02:00 06/17/17 01:59 Levalbuterol (Xopenex 1.25MG/ 0.5ML Neb) 1.25 mg Q4H PRN INH 05/18/17 02:00 06/17/17 01:59 Acetaminophen (Tylenol Tab) 650 mg Q4H PRN PO 05/18/17 02:15 06/17/17 02:14 Tramadol HCl (Ultram Tab) 25 mg Q6H PRN PO 05/18/17 02:15 06/17/17 02:14 Prochlorperazine Edisylate 5 mg/ Syringe 5 ml @ 5 mls/min Q6H PRN IV 05/18/17 02:15 06/17/17 02:14 Doxycycline Hyclate (Vibramycin Cap) 100 mg BID PO 05/18/17 09:00 05/25/17 08:59 05/20/17 08:20 100 MG Pantoprazole Sodium (Protonix Tab) 40 mg BID PO 05/18/17 09:00 06/17/17 08:59 05/20/17 08:21 40 MG Guaifenesin (Mucinex Contr Rel Tab) 600 mg Q12 PO 05/18/17 21:00 06/17/17 20:59 05/20/17 08:21 600 MG Ipratropium [place] (Atrovent 0.02% 0.5MG/2.5ML Neb) 0.5 mg Q6R INH 05/18/17 09:00 06/17/17 08:59 05/20/17 07:01 0.5 MG Levalbuterol (Xopenex 1.25MG/ 0.5ML Neb) 1.25 mg Q6R INH 05/18/17 09:00 06/17/17 08:59 05/20/17 07:00 1.25 MG Metoprolol Tartrate (Lopressor Tab) 25 mg BID PO 05/18/17 21:00 06/17/17 20:59 05/20/17 08:21 25 MG Glucose (Glucose 40% Gel) 15-30 GRAMS 15 GRAMS... UD PRN PO 05/18/17 06:00 06/17/17 05:59 Glucose (Glucose Chew Tab) 4-8 Tablets 4 Tabl... UD PRN PO 05/18/17 06:00 06/17/17 05:59 Dextrose (Dextrose 50% 50ML Syringe) 25-50ML OF 50% DW IV FOR... UD PRN IV 05/18/17 06:00 06/17/17 05:59 Glucagon (Glucagon Inj) 1 mg UD PRN SQ 05/18/17 06:00 06/17/17 05:59 Insulin Glargine (Lantus Solostar Pen) BSG LANTUS UNITS S... BID SC 05/18/17 21:00 06/17/17 20:59 05/19/17 22:36 25 UNITS Insulin Aspart (novoLOG ASPART) SLIDING SCALE G... ACHS SC 05/18/17 21:00 06/17/17 20:59 05/19/17 17:19 4 UNITS Guaifenesin (Robitussin Sugar Free Syrup) 200 mg Q6H PRN PO 05/18/17 23:15 06/17/17 23:14 05/19/17 22:34 200 MG Enoxaparin Sodium (Lovenox Inj) 120 mg Q12@1000,2200 SQ 05/19/17 10:00 06/18/17 09:59 05/20/17 11:58 120 MG Metformin HCl (Glucophage Tab) 500 mg BIDM PO 05/20/17 07:30 06/19/17 07:29 05/20/17 08:17 500 MG
--- NOTE | 2017-05-20 13:01 | Discharge Instructions ---
Discharge Instructions Date of Service May 20, 2017. Admission Reason for Admission: trouble breathing . Discharge Discharge Diagnosis / Problem: (1) Pulmonary embolism (2) DVT, lower extremity, distal VTE Date & Time Date of VTE Diagnosis: May 18, 2017 Time of VTE Diagnosis: 07:32 Discharge Goals Goal(s): Improve disease control Activity Recommendations Activity Limitations: as noted below Lifting Limitations: gradually increase as tolerated . Instructions / Follow-Up Instructions / Follow-Up APPOINTMENTS: FAMILY MEDICINE 05/24/2017 2:00 PM Jacob Enciso MD OTHER INSTRUCTIONS: Scans showed blood clots in both lungs and blood clot in your left leg. Take enoxaparin (Lovenox) injections twice a day at 9 AM and 9 PM until [facility] tells you to stop. Take warfarin (Coumadin) as directed. Initial dose will be 1 + 1/2 pill (7.5 mg ) daily starting on 05/21/17. Best to take it in the evening. Please discuss referral to counter stacker (blood specialist) with Dr. Enciso to determine how long you should take the blood thinners. Should avoid anti-inflammatory medicines like ibuprofen (Advil, Motrin), naproxen (Aleve), celecoxib (Celebrex) and other similar medications when you are taking blood thinners - they can cause dangerous bleeding ulcers. CT of chest showed a lump in your thyroid gland. Please ask Dr. Enciso to schedule an outpatient ultrasound to check it out further. Please review cancer screening tests with Dr. Enciso to make certain that tests are up to date. You have diabetes. Take metformin 500 mg twice a day with food. Check your blood sugars each morning and before supper. It would be helpful if you lose weight. Your blood sugars, blood pressure, and energy level will all be better. Watch your diet, avoid too many carbohydrates and fats. You could have sleep apnea. Please discuss sleep study with Dr. Enciso It is very important that you quit smoking. Please discuss further with Dr. Enciso. Seek medical attention if you have: * temperature above 101 * chest pain or trouble breathing * abdominal pain, nausea, vomiting * diarrhea, dark stools or bloody stools * blood sugars above 250 or below 80 * any unanswered questions or concerns Call 911 if symptoms are severe. Call if you have any questions or problems. My cell # is [phone]. You can also reach a [facility] hospitalist on duty at [facility] 24 hours a day by calling [phone]. Please take good care of yourself. Luke Huffman Medication instructions for warfarin (Coumadin): * Warfarin is a medicine prescribed to prevent blood clots * Warfarin will thin your blood and help prevent new clots * Take your medications exactly as directed * Never skip a dose. Never take a double dose. If you miss a dose, take it as soon as you remember * It is important for your doctor to monitor your prothrombin time (PT). This is a lab test * Keep your appointment for lab tests Risk of Adverse Drug Reactions and Interactions: * Warfarin increases your risk of bleeding * The food you eat and other medications you take can affect how Warfarin works in your body * Ask your doctor about daily aspirin therapy * It is very important to talk with your doctor about all of the other medicines , antibiotics, vitamins or herbal products that you are taking * All of your medication must be approved by your doctor, including new medicines, as well as medicines you have taken before you started taking Warfarin Diet: * In order for Warfarin to work properly, it is important to keep your intake of Vitamin K as consistent as possible * You should avoid any sudden change in Vitamin K intake * Report any significant changes in your diet or weight to your doctor Call your Primary Care doctor if you experience any of the following: * Swelling or Pain in your leg * Sudden, continuous pain deep in a muscle * Pain that worsens when you are active or when you stand still for a long time * Chest Pain * Sudden Shortness of Breath * Rapid or pounding heart beat * Fainting * Dizziness * Cough with blood or bloody sputum * Sweating more than normal * Bruises * Heavy or uncontrolled bleeding * Blood in your urine, stool or vomit * Black or tarry stools Caring for Your Self at Home: * Avoid sitting, standing or lying down for long periods without moving your legs and feet * When traveling by car, stop to get out and move around at least once every 3 hours * On long airplane, train or bus rides, get up and move around when possible * If you can't get up, wiggle your toes and tighten your calves to keep your blood moving Follow Up: It is important for you to keep your follow up appointments with your medical provider. Current Hospital Diet Patient's current hospital diet: AHA Diet (Heart Healthy), Diabetes Type 2 Diet Discharge Diet Recommended Diet: AHA Diet (Heart Healthy), Diabetes Type 2 Diet Procedures Procedures Performed: CT scan chest- blood clots in both lungs, nodule in thyroid gland, fatty liver ultrasound legs- blood clot in left leg ultrasound heart (echocardiogram) - increased pressures in pulmonary artery Pending Studies Studies pending at discharge: no Laboratory Results Hemoglobin A1c Test 05/17/17 21:22 Range/Units Estimated Average Glucose 192 mg/dl Hemoglobin A1c 8.3 H 4.5-5.6 % Medical Emergencies . Who to Call and When: Medical Emergencies: If at any time you feel your situation is an emergency, please call 911 immediately. . Non-Emergent Contact Non-Emergency issues call your: Primary Care Provider, Hospital Doctor . . "Provider Documentation" section prepared by Luek Huffman. . VTE Core Measure Reason no anticoag overlap I/P: Treatment provided - N/A Reason no anticoag overlap @DC: Treatment provided - N/A
[2017-05-20] MEDS ORDERED: ACET-1138 PO (13:05)
[2017-05-20] MEDS ORDERED: LANC-393 (13:13)
[2017-05-20] MEDS ORDERED: glucometer strips (13:15)
[2017-05-20] MEDS ORDERED: BLOO1KIT92 (13:17)
--- NOTE | 2017-05-22 08:15 | Discharge Summary ---
Discharge Summary Date of Service May 22, 2017. Discharge Summary Admission Date: May 18, 2017 at 01:58 Discharge Date: May 20, 2017 Discharge Disposition: Home Principal Diagnosis: bilateral pulmonary emboli (present on admission) DVT left popliteal and posterior tibial veins (present on admission) . Secondary Diagnoses/Problems: OTHER ACUTE / NEW DIAGNOSES: diabetes mellitus type 2, uncontrolled hyperglycemia thyroid nodule elevated right ventricular systolic pressures Chronic Medical Problems: Hypertension GERD COPD Obesity, morbid Surgical Problems: (1) H/O total knee replacement Status: Chronic . Procedures: Cardiac monitoring Intravenous medications CTA chest Venous duplex lower extremities Echocardiogram, transthoracic . Pending Studies/Follow-Up: Please arrange for outpatient US thyroid re: thyroid nodule. Please arrange for diabetic education. Please consider referral to Hematology regarding pulmonary emboli, family history VTE. Please arrange for outpatient sleep study re: pulmonary hypertension. . Medication Reconciliation New Medications: Acetaminophen (Tylenol Extra Strength) 500 Mg Tab 1000 MG PO Q8 PRN for Pain, #60 TAB Blood Glucose Monitoring Suppl ([employer]touch Verio W/Device) 1 Kit Kit BTL N/A, #1 12 Refills Glucometer strips only (has OneTouch Verio glucometer). Check blood sugars twice a day before breakfast and dinner. Enoxaparin Sodium (Lovenox) 120 Mg/0.8 Ml Inj 120 MG SQ Q12, #10 SYR Inject twice a day at 9 AM and 9 PM. Lancets ([employer]touch Delica Lancets) 1 Mis Mis BOX N/A, #1 12 Refills Check blood sugars twice a day before breakfast and supper. Warfarin Sodium (Warfarin Sodium) 5 Mg Tab 0 PO UD, #60 TAB 5 Refills Dose will vary. Initial dose is 1 + 1/2 pill (7.5 mg) daily starting 05/21/17. Metformin HCl (Metformin HCl) 500 Mg Tab 500 MG PO BIDM, #60 TAB 5 Refills Continued Medications: Metoprolol Tartrate (Lopressor) (Lopressor) 50 Mg Tab 50 MG PO QPM, TAB Omeprazole (Prilosec) 20 Mg Capcr 20 MG PO BID, 0 Refills Discontinued Medications: Celecoxib (CeleBREX) 200 Mg Cap 200 MG PO DAILY Admission Information HPI (per Admitting provider): History obtained from patient and records. Medical history significant for COPD, ongoing tobacco abuse, hypertension, hyperlipidemia, sleep disturbance per records. Recent confinement last 2011 under orthopedic service for right knee surgery. A few days history of cough symptoms, productive of yellow sputum. Possible sick contacts. 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 No chest pain, increasing shortness of breath. Usual leg swelling. No recent prolonged travel. Brought to the Emergency Room. Received DuoNeb, Solu-Medrol, azithromycin for COPD exacerbation. . Physical Exam (per Admitting): VITAL SIGNS: Blood pressure noted to be 124/85, pulse rate 107, RR 26, later 21, temperature to be obtained. GENERAL: Noted to be obese. No respiratory distress, anxious. SKIN: Normal color, warm. HEENT: [place] palpebral conjunctivae. No ptosis. Dry mucosa. NECK: Short, supple. CHEST: Decreased breath sounds. No tenderness. HEART: Tachycardic. No murmur. ABDOMEN: Some distention, nontender. EXTREMITIES: Bilateral lower extremity edema, no tenderness. No other gross deformities. NEUROLOGIC: Coherent. No gross focality. . Hospital Course PULMONARY EMBOLI / DVT LLE (present on admission) Presented with cough and dyspnea. CTA chest demonstrated bilateral pulmonary emboli. Venous duplex of lower extremities demonstrated DVT involving the left popliteal and posterior tibial veins. Started on IV heparin. Options for oral anticoagulation discussed with patient. Echocardiogram demonstrated elevated RV systolic pressure of 40-50 mm, no right ventricular enlargement. Transitioned from IV heparin to SQ enoxaparin. Started on warfarin therapy rather than DOAC because of body weight. Discharged on enoxaparin 120 mg SQ every 12 hours until INR therapeutic for at least 2 days. Discharge on warfarin 7.5 mg p.o. daily with further dosing per [facility]. Duration of anticoagulation to be determined; at least 6 months of therapy indicated given extent of thromboemboli. Mother has history of venous thromboembolism and is on warfarin therapy. Outpatient hematology consultation mended to determine if further outpatient testing warranted and to make recommendations regarding duration of anticoagulation. Patient advised to discuss cancer screening with her PCP to make certain that she is up-to-date on routine recommendations; she is to report any new or worrisome symptoms. ELEVATED TROPONIN Serum troponin = 0.121. Most likely secondary to pulmonary embolism. HYPERTENSION Continue metoprolol. COPD Smoking cessation counseling. PULMONARY HYPERTENSION RV systolic pressures 40-50 mm. Pulmonary hypertension may be secondary to COPD, sleep apnea, obesity hypoventilation syndrome, and/or pulmonary emboli. Outpatient sleep study recommended for further evaluation of possible sleep apnea. HYPERGLYCEMIA / DM TYPE 2 Random blood sugar in ED 158. Hemoglobin A1c 8.3. No prior history of diabetes. Serum glucose 05/18 was 440 after receiving intravenous methylprednisolone. Received IV insulin therapy. Transitioned to basal bolus SQ insulin per protocol. Fasting blood sugar today = 141. Received diabetes education. Given glucometer and instructions on its use. Discharged on metformin 500 mg p.o. twice daily. Ongoing diabetes education/support. THYROID NODULE 1.6 cm low-attenuation nodule noted in the left lobe of thyroid as incidental finding on CT chest. TSH normal. Will need outpatient follow-up with ultrasound. MORBID OBESITY Weight 130.7 kg, BMI 39.1 kg/m. Importance of weight loss discussed. AHA, diabetic diet. SMOKING Importance of smoking cessation discussed. Ongoing counseling recommended. VTE PROPHYLAXIS Not indicated in light of acute DVT/PE. DISPOSITION Discharge to home. Family Medicine follow-up with Dr. Enciso. . Total time spent on discharge = 45 min. This includes examination of the patient, discharge planning, medication reconciliation, and communication with other providers. . Discharge Instructions Date of Service May 20, 2017. Admission Reason for Admission: trouble breathing . Discharge Discharge Diagnosis / Problem: (1) Pulmonary embolism (2) DVT, lower extremity, distal VTE Date & Time Date of VTE Diagnosis: May 18, 2017 Time of VTE Diagnosis: 07:32 Discharge Goals Goal(s): Improve disease control Activity Recommendations Activity Limitations: as noted below Lifting Limitations: gradually increase as tolerated . Instructions / Follow-Up Instructions / Follow-Up APPOINTMENTS: FAMILY MEDICINE 05/24/2017 2:00 PM Jacob Enciso MD OTHER INSTRUCTIONS: Scans showed blood clots in both lungs and blood clot in your left leg. Take enoxaparin (Lovenox) injections twice a day at 9 AM and 9 PM until [facility] tells you to stop. Take warfarin (Coumadin) as directed. Initial dose will be 1 + 1/2 pill (7.5 mg ) daily starting on 05/21/17. Best to take it in the evening. Please discuss referral to sales data analyst (blood specialist) with Dr. Enciso to determine how long you should take the blood thinners. Should avoid anti-inflammatory medicines like ibuprofen (Advil, Motrin), naproxen (Aleve), celecoxib (Celebrex) and other similar medications when you are taking blood thinners - they can cause dangerous bleeding ulcers. CT of chest showed a lump in your thyroid gland. Please ask Dr. Enciso to schedule an outpatient ultrasound to check it out further. Please review cancer screening tests with Dr. Enciso to make certain that tests are up to date. You have diabetes. Take metformin 500 mg twice a day with food. Check your blood sugars each morning and before supper. It would be helpful if you lose weight. Your blood sugars, blood pressure, and energy level will all be better. Watch your diet, avoid too many carbohydrates and fats. You could have sleep apnea. Please discuss sleep study with Dr. Enciso It is very important that you quit smoking. Please discuss further with Dr. Enciso. Seek medical attention if you have: * temperature above 101 * chest pain or trouble breathing * abdominal pain, nausea, vomiting * diarrhea, dark stools or bloody stools * blood sugars above 250 or below 80 * any unanswered questions or concerns Call 911 if symptoms are severe. Call if you have any questions or problems. My cell # is [phone]. You can also reach a [facility] hospitalist on duty at [facility] 24 hours a day by calling [phone]. Please take good care of yourself. Luke Huffman Medication instructions for warfarin (Coumadin): * Warfarin is a medicine prescribed to prevent blood clots * Warfarin will thin your blood and help prevent new clots * Take your medications exactly as directed * Never skip a dose. Never take a double dose. If you miss a dose, take it as soon as you remember * It is important for your doctor to monitor your prothrombin time (PT). This is a lab test * Keep your appointment for lab tests Risk of Adverse Drug Reactions and Interactions: * Warfarin increases your risk of bleeding * The food you eat and other medications you take can affect how Warfarin works in your body * Ask your doctor about daily aspirin therapy * It is very important to talk with your doctor about all of the other medicines , antibiotics, vitamins or herbal products that you are taking * All of your medication must be approved by your doctor, including new medicines, as well as medicines you have taken before you started taking Warfarin Diet: * In order for Warfarin to work properly, it is important to keep your intake of Vitamin K as consistent as possible * You should avoid any sudden change in Vitamin K intake * Report any significant changes in your diet or weight to your doctor Call your Primary Care doctor if you experience any of the following: * Swelling or Pain in your leg * Sudden, continuous pain deep in a muscle * Pain that worsens when you are active or when you stand still for a long time * Chest Pain * Sudden Shortness of Breath * Rapid or pounding heart beat * Fainting * Dizziness * Cough with blood or bloody sputum * Sweating more than normal * Bruises * Heavy or uncontrolled bleeding * Blood in your urine, stool or vomit * Black or tarry stools Caring for Your Self at Home: * Avoid sitting, standing or lying down for long periods without moving your legs and feet * When traveling by car, stop to get out and move around at least once every 3 hours * On long airplane, train or bus rides, get up and move around when possible * If you can't get up, wiggle your toes and tighten your calves to keep your blood moving Follow Up: It is important for you to keep your follow up appointments with your medical provider. Current Hospital Diet Patient's current hospital diet: AHA Diet (Heart Healthy), Diabetes Type 2 Diet Discharge Diet Recommended Diet: AHA Diet (Heart Healthy), Diabetes Type 2 Diet Procedures Procedures Performed: CT scan chest- blood clots in both lungs, nodule in thyroid gland, fatty liver ultrasound legs- blood clot in left leg ultrasound heart (echocardiogram) - increased pressures in pulmonary artery Pending Studies Studies pending at discharge: no Laboratory Results Hemoglobin A1c Test 05/17/17 21:22 Range/Units Estimated Average Glucose 192 mg/dl Hemoglobin A1c 8.3 H 4.5-5.6 % Medical Emergencies . Who to Call and When: Medical Emergencies: If at any time you feel your situation is an emergency, please call 911 immediately. . Non-Emergent Contact Non-Emergency issues call your: Primary Care Provider, Hospital Doctor . . "Provider Documentation" section prepared by Luke Huffman. . VTE Core Measure Reason no anticoag overlap I/P: Treatment provided - N/A Reason no anticoag overlap @DC: Treatment provided - N/A . Additional Copies To Jacob Enciso M.D. (MEDICAL)
== END 2017-05-20 15:39 | disposition home or self-care (01) | DRG 299 ==
LOC: C.EDA 19:50 → C.2T 05-18 01:58
PROVIDERS: ADMIT Internal Medicine; ATTEND Hospitalist
DX: I82.432 Acute embolism and thrombosis of left popliteal vein (principal); I26.99 Other pulmonary embolism without acute cor pulmonale; I82.442 Acute embolism and thrombosis of left tibial vein; E11.65 Type 2 diabetes mellitus with hyperglycemia; I27.29 Other secondary pulmonary hypertension; J44.9 Chronic obstructive pulmonary disease, unspecified; I10 Essential (primary) hypertension; E04.1 Nontoxic single thyroid nodule; E66.01 Morbid (severe) obesity due to excess calories; F17.200 Nicotine dependence, unspecified, uncomplicated; Z51.81 Encounter for therapeutic drug level monitoring; Z79.899 Other long term (current) drug therapy; Z68.39 Body mass index [BMI] 39.0-39.9, adult; Z82.49 Family history of ischemic heart disease and other diseases of the circulatory system

== ENCOUNTER 2017-07-07 21:15 | Emergency (ER) | payer OTHER ==
[~2017-07-07] VITALS: Ht 180.3 cm; Wt 136.0 kg
[~2017-07-07 21:15] MED LIST changes: +ACET-1138 PO; +BLOO1KIT92; -CLB/200 PO; +ENOX1INJ13 SQ; -GABA-112 PO; +GLC500 PO; +LANC-393; -PRED20TA PO; +WARF-246 PO
[2017-07-07 21:16] VITALS: TEMP 36.4; Ht 180.3 cm; Wt 136.0 kg
[2017-07-07] MEDS ORDERED: ALBUT/IPRATROP 3MG/0.5MG NEB 3 ML VIAL INH STA (21:28)
[2017-07-07 21:30] VITALS: O2SAT 97
--- NOTE | 2017-07-07 21:30 | EMERGENCY ROOM VISIT NOTE ---
History Report prepared by Wicho: Cher Gao Under the Supervision of: Dr. Fred Caro M.D. First contact with patient: 21:19 Chief Complaint: SHORTNESS OF BREATH Stated Complaint: SOB History of Present Illness The patient is a 66 year old female who presents to the Emergency Room with complaints of worsening shortness of breath for the past day. She admits to a history of multiple previous PE's and is currently on blood thinners. She believes her last INR was 2.5 on June 28. The patient admits to a productive cough and states she uses a Nebulizer at home. She denies any fevers. She did experience some chest pain yesterday. She denies any recent sick contacts. She has experienced no recent vomiting or diarrhea. 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 A total of 10 systems reviewed and were otherwise negative. Past Medical & Surgical Medical Problems: (1) COPD (chronic obstructive pulmonary disease) (2) Diabetes mellitus, type 2 (3) GERD (gastroesophageal reflux disease) (4) History of DVT of lower extremity (5) History of pulmonary embolism (6) Hypertension (7) Obesity, morbid (8) Pulmonary hypertension (9) Thyroid nodule Surgical Problems: (1) H/O total knee replacement Family History Patient reports no known family medical history. Social History Smoking Status: Current Every Day Smoker Alcohol Use: none Drug Use: none Marital Status: Housing Status: lives with family Occupation Status: employed Current/Historical Medications Scheduled Doxycycline Hyclate (Vibramycin), 100 MG PO BID Fluconazole (Fluconazole), 100 MG PO DAILY Metformin HCl (Metformin HCl), 500 MG PO BIDM Metoprolol Tartrate (Lopressor), 25 MG PO BID Omeprazole (Prilosec), 20 MG PO BID Sumatriptan Succinate (Sumatriptan Succinate), 50 MG PO PRN UD Warfarin Sodium (Coumadin), 2.5 MG PO MWF Warfarin Sodium (Coumadin), 5 MG PO 4XWK Scheduled PRN Acetaminophen (Tylenol Extra Strength), 1,000 MG PO Q8 PRN for Pain Allergies Coded Allergies: No Known Allergies (Unverified , 03/07/16) Physical Exam Vital Signs Date Time Temp Pulse Resp B/P (MAP) Pulse Ox O2 Delivery O2 Flow Rate FiO2 07/08/17 00:00 77 18 138/87 96 Room Air 07/07/17 23:15 88 20 151/88 98 Room Air 07/07/17 21:33 81 07/07/17 21:30 97 Room Air 07/07/17 21:24 Room Air 07/07/17 21:16 36.4 99 24 149/97 91 Room Air Physical Exam GENERAL: Patient is in no acute distress. HEENT: No acute trauma, normocephalic atraumatic, mucous membranes moist, no nasal congestion, no scleral icterus. NECK: No stridor, no adenopathy, no meningismus, trachea is midline. LUNGS: Diminished breath sounds bilaterally, no wheezing or rhonchi, breath sounds are equal, no respiratory distress. HEART: Without murmurs gallops or rubs, regular rate and rhythm. ABDOMEN: Soft, nontender, bowel sounds positive, no hernias, no peritonitis. EXTREMITIES: No cyanosis, mild bilateral pedal edema, full range of motion of all the joints without pain or difficulty, no signs for acute trauma. NEUROLOGIC: Oriented x 3, no acute motor or sensory deficits, no focal weakness. SKIN: No rash, no jaundice, no diaphoresis. Medical Decision & Procedures ER Provider Diagnostic Interpretation: Radiology results as stated below per my review and radiologist interpretation: CHEST ONE VIEW PORTABLE CLINICAL HISTORY: Shortness of breath, cough. COMPARISON STUDY: 05/09/2017 FINDINGS: The heart is mildly enlarged. There is slight basilar interstitial thickening. There are slightly low lung volumes. There is no overt failure. There are no pleural effusions. There is no lobar consolidation. IMPRESSION: Mild interstitial thickening. No evidence of lobar consolidation Electronically signed by: Karan Mancilla M.D. 07/07/2017 9:45 PM CTA CHEST: Compared to 05/18/17. No large central PE. Evaluation of peripheral vessels is limited by motion artifact. Small focal low attenuation in the right interlobar artery (image [id number]) and right upper lobe ( series 400, images 52-53), query chronic/residual PE. Small filling defect versus artifact also noted in the right middle lobe branch (image [id number]). No aortic aneurysm or dissection. Probable mild atelectasis. No pneumothorax or pleural effusion. Query punctate nonobstructing left renal calculus (image 2-1). Additional incidental findings similar to prior study. Radiologist: Cynthia Goins M.D. Laboratory Results 07/07/17 21:26 Red Blood Count 4.71, Mean Corpuscular Volume 91.5, Mean Corpuscular Hemoglobin 31.6, Mean Corpuscular Hemoglobin Concent 34.6, Mean Platelet Volume 9.5, Neutrophils (%) (Auto) 55.8, Lymphocytes (%) (Auto) 36.7, Monocytes (%) (Auto) 4.9, Eosinophils (%) (Auto) 1.8, Basophils (%) (Auto) 0.7, Neutrophils # (Auto) 4.84, Lymphocytes # (Auto) 3.19, Monocytes # (Auto) 0.43, Eosinophils # (Auto) 0.16, Basophils # (Auto) 0.06 07/07/17 21:26 Test 07/07/17 21:26 White Blood Count 8.69 K/uL (4.8-10.8) Red Blood Count 4.71 M/uL (4.2-5.4) Hemoglobin 14.9 g/dL (12.0-16.0) Hematocrit 43.1 % (37-47) Mean Corpuscular Volume 91.5 fL (80-100) Mean Corpuscular Hemoglobin 31.6 pg (25-34) Mean Corpuscular Hemoglobin Concent 34.6 g/dl (32-36) Platelet Count 205 K/uL (130-400) Mean Platelet Volume 9.5 fL (7.4-10.4) Neutrophils (%) (Auto) 55.8 % Lymphocytes (%) (Auto) 36.7 % Monocytes (%) (Auto) 4.9 % Eosinophils (%) (Auto) 1.8 % Basophils (%) (Auto) 0.7 % Neutrophils # (Auto) 4.84 K/uL (1.4-6.5) Lymphocytes # (Auto) 3.19 K/uL (1.2-3.4) Monocytes # (Auto) 0.43 K/uL (0.11-0.59) Eosinophils # (Auto) 0.16 K/uL (0-0.5) Basophils # (Auto) 0.06 K/uL (0-0.2) RDW Standard Deviation 46.7 fL (36.4-46.3) RDW Coefficient of Variation 13.9 % (11.5-14.5) Immature Granulocyte % (Auto) 0.1 % Immature Granulocyte # (Auto) 0.01 K/uL (0.00-0.02) Prothrombin Time 22.3 SECONDS (9.0-12.0) Prothromb Time International Ratio 2.2 (0.9-1.1) Activated Partial Thromboplast Time 40.1 SECONDS (21.0-31.0) Partial Thromboplastin Ratio 1.5 Anion Gap 9.0 mmol/L (3-11) Est Creatinine Clear Calc Drug Dose 85.5 ml/min Estimated GFR () 68.8 Estimated GFR (Non- 59.4 BUN/Creatinine Ratio 14.9 (10-20) Calcium Level 8.5 mg/dl (8.5-10.1) Total Bilirubin 0.3 mg/dl (0.2-1) Aspartate Amino Transf (AST/SGOT) 22 U/L (15-37) Alanine Aminotransferase (ALT/SGPT) 40 U/L (12-78) Alkaline Phosphatase 124 U/L (45-117) Troponin I < 0.015 ng/ml (0-0.045) Pro-B-Type Natriuretic Peptide 22 pg/ml (0-900) Total Protein 7.4 gm/dl (6.4-8.2) Albumin 3.3 gm/dl (3.4-5.0) Globulin 4.1 gm/dl (2.5-4.0) Albumin/Globulin Ratio 0.8 (0.9-2) Laboratory results reviewed by me. Medications Administered Medications (Trade) Dose Ordered Sig/Lilia Route Start Time Stop Time Status Last Admin Dose Admin Albuterol/ Ipratropium (Duoneb) 3 ml NOW STAT INH 07/07/17 21:28 07/07/17 21:31 DC 07/07/17 21:44 3 ML Doxycycline Hyclate (Vibramycin Cap) 100 mg ONE ONCE PO 07/08/17 00:00 07/08/17 00:01 DC 07/08/17 00:01 100 MG ECG Per My Interpretation Indication: SOB/dyspnea Rate (beats per minute): 94 Rhythm: normal sinus Findings: no ectopy, other (LVH, no ST elevation, no PVC) ED Course 2120: The patient was evaluated in room A11. A complete history and physical exam was performed. 2127: DuoNeb 3 ml INH. 2299: I reevaluated the patient. She is currently in CT. I will check back. 2326: I reevaluated the patient. She feels much better after the DuoNeb and is resting comfortably. 2356: I reevaluated the patient. She is resting comfortably. I discussed her results and discharge instructions and she verbalized complete understanding and agreement. 0000: Vibramycin 100 mg PO. Medical Decision The differential diagnoses considered include recurrent pulmonary embolism's, bronchitis, pneumonia, CHF, cardiac ischemia, anemia and electrolyte imbalance. There is no leukocytosis or concerning anemia. No significant electrolyte abnormality or kidney failure. Alk phos is slightly elevated. INR is therapeutic for someone using Coumadin. EKG shows a normal sinus rhythm with LVH, no acute ischemia. Cardiac enzyme testing 1 is not consistent with acute cardiac injury. Chest film does not show pneumonia, free air or pneumothorax. There was no CHF. Chest CT does show some residual pulmonary emboli but looking back at the reading from the CT last month, things seem improved. The amount of clot seems less. Patient received a DuoNeb, she is resting comfortably. She was given oral doxycycline. She is not febrile, she is not hypoxic or toxic. She feels improved since receiving the DuoNeb. I think the patient has an acute bronchitis with a flare of COPD. She was reassured by her workup. She is being discharged on doxycycline. She will be sure to keep a very good watch on her INR as the doxycycline may affect her level. She will increase her albuterol use to every 4 hours. She will see her doctor next week for a recheck and return here for any worsening symptoms or if not improving. Medication Reconcilliation Current Medication List: was personally reviewed by me Blood Pressure Screening Patient's blood pressure: Elevated blood pressure Blood pressure disposition: Referred to PCP Impression Primary Impression: Shortness of breath Additional Impressions: Acute bronchitis COPD exacerbation Scribe Attestation The scribe's documentation has been prepared under my direction and personally reviewed by me in its entirety. I confirm that the note above accurately reflects all work, treatment, procedures, and medical decision making performed by me. Departure Information Dispostion Home / Self-Care Prescriptions Doxycycline Hyclate (VIBRAMYCIN) 100 Mg Cap 100 MG PO BID for 7 Days, #14 CAP Prov: Fred Caro M.D. 07/07/17 Referrals No Doctor, Assigned (PCP) Patient Instructions My [facility] Additional Instructions doxycycline 2x per day for 1 week increase the nebulizer use to every 4 hours see aleshia rangel this week for a recheck return for worsening symptoms, chest pain or if not improving no new clot today by CT scan Problem Qualifiers
--- NOTE | 2017-07-07 21:46 | DIAGNOSTIC IMAGING REPORT ---
CHEST ONE VIEW PORTABLE CLINICAL HISTORY: Shortness of breath, cough. COMPARISON STUDY: 05/09/2017 FINDINGS: The heart is mildly enlarged. There is slight basilar interstitial thickening. There are slightly low lung volumes. There is no overt failure. There are no pleural effusions. There is no lobar consolidation. [ IMPRESSION: Mild interstitial thickening. No evidence of lobar consolidation Electronically signed by: Karan Mancilla M.D. 07/07/2017 9:45 PM Dictated Date/Time: 07/07/2017 9:44 PM
[2017-07-07 21:49] LABS: BASO % 0.7 %; BASO ABS # 0.06 K/uL (0-0.2); EOS % 1.8 %; EOS ABS # 0.16 K/uL (0-0.5); HEMATOCRIT 43.1 % (37-47); HEMOGLOBIN 14.9 g/dL (12.0-16.0); IG# 0.01 K/uL (0.00-0.02); LYMPH % 36.7 %; LYMPH ABS # 3.19 K/uL (1.2-3.4); MEAN CELL VOLUME 91.5 fL (80-100); MEAN CORPUSCULAR HEMOGLOBIN 31.6 pg (25-34); MEAN CORPUSCULAR HGB CONC 34.6 g/dl (32-36); MEAN PLATELET VOLUME 9.5 fL (7.4-10.4); MONO % 4.9 %; MONO ABS # 0.43 K/uL (0.11-0.59); NEUT % 55.8 %; NEUT ABS # 4.84 K/uL (1.4-6.5); PLATELET COUNT 205 K/uL (130-400); RED CELL DISTRIBUTION WIDTH CV 13.9 % (11.5-14.5); RED CELL DISTRIBUTION WIDTH SD 46.7 fL (36.4-46.3); WHITE BLOOD COUNT 8.69 K/uL (4.8-10.8)
[2017-07-07 22:01] LABS: INR 2.2 (0.9-1.1); PTT PATIENT 40.1 SECONDS (21.0-31.0)
[2017-07-07 22:17] LABS: ALBUMIN 3.3 gm/dl (3.4-5.0); ALKALINE PHOSPHATASE 124 U/L (45-117); ALT/SGPT 40 U/L (12-78); AST/SGOT 22 U/L (15-37); BLOOD UREA NITROGEN 15 mg/dl (7-18); CALCIUM 8.5 mg/dl (8.5-10.1); CARBON DIOXIDE 22 mmol/L (21-32); CREATININE 0.99 mg/dl (0.60-1.20); GLUCOSE 151 mg/dl (70-99); POTASSIUM 3.9 mmol/L (3.5-5.1); SODIUM 137 mmol/L (136-145); TOTAL PROTEIN 7.4 gm/dl (6.4-8.2)
[2017-07-07] MEDS ORDERED: LPR25 PO (22:35)
[2017-07-07] MEDS ORDERED: IMT50 PO (22:35)
[2017-07-07] MEDS ORDERED: WARF5TAB90 PO ×2 (22:39)
[2017-07-07] MEDS ORDERED: DFL100 PO (22:39)
[2017-07-07] MEDS ORDERED: OPTIRAY 320 IV PRN (23:15)
[2017-07-07] MEDS ORDERED: DOXY100C PO (23:55)
[2017-07-08] VITALS: BP 138/87; PULSE 77; O2SAT 96
[2017-07-08] MEDS ORDERED: DOXYCYCLINE HYCLATE 100 MG CAP PO ONE
--- NOTE | 2017-07-08 07:29 | DIAGNOSTIC IMAGING REPORT ---
CHEST CTA for PULMONARY ARTERIES CT DOSE: 725.05 mGy.cm HISTORY: Atypical chest pain TECHNIQUE: Multiaxial CT images of the chest were performed following the intravenous administration of contrast to evaluate the pulmonary arteries. Maximal intensity projection images were also obtained. A dose lowering technique was utilized adhering to the principles of ALARA. COMPARISON STUDY: Chest CTA 05/18/2017. FINDINGS: No evidence for an aortic dissection. The heart is normal in size. No pleural or pericardial effusions. A few small scattered linear filling defects seen within the bilateral lower lobe pulmonary arteries and distal right main pulmonary artery consistent with chronic pulmonary embolus. This has improved compared to the prior study. No new filling defects identified to suggest acute pulmonary embolus. The visualized liver, spleen, and adrenal glands are unremarkable. There is a punctate left renal stone. A 1.6 cm left thyroid nodule is again noted. No mediastinal or hilar lymphadenopathy. No pneumothorax. The central airways are patent. Small linear scarlike density seen within the superior segment of the left lower lobe. No focal lung consolidations to suggest pneumonia. IMPRESSION: 1. Interval improvement in the bilateral pulmonary emboli consistent with resolving chronic pulmonary emboli. No new/acute pulmonary emboli. 2. No focal lung consolidations to suggest pneumonia. 3. Redemonstration of the 1.6 cm hypodense nodule within the left thyroid lobe. Electronically signed by: Fausto Pacheco M.D. 07/08/2017 7:27 AM Dictated Date/Time: 07/08/2017 7:21 AM
== END 2017-07-08 00:03 | disposition home or self-care (01) ==
LOC: C.EDB 21:15 → C.EDA 07-08 00:03
DX: R06.02 Shortness of breath (principal); J20.9 Acute bronchitis, unspecified; J44.1 Chronic obstructive pulmonary disease with (acute) exacerbation; E11.9 Type 2 diabetes mellitus without complications; K21.9 Gastro-esophageal reflux disease without esophagitis; I10 Essential (primary) hypertension; E66.9 Obesity, unspecified; F17.200 Nicotine dependence, unspecified, uncomplicated; Z79.01 Long term (current) use of anticoagulants; Z51.81 Encounter for therapeutic drug level monitoring

== ENCOUNTER 2017-09-16 08:36 | Emergency (ER) | payer OTHER ==
[~2017-09-16] VITALS: Ht 180.3 cm; Wt 132.3 kg
[~2017-09-16 08:36] MED LIST changes: -BLOO1KIT92; +DFL100 PO; -ENOX1INJ13 SQ; +IMT50 PO; -LANC-393; +LPR25 PO; -METO50TA16 PO; -WARF-246 PO; +WARF5TAB90 PO
[2017-09-16 08:39] VITALS: TEMP 36.6; Ht 180.3 cm; Wt 132.3 kg
--- NOTE | 2017-09-16 08:55 | EMERGENCY ROOM VISIT NOTE ---
History Report prepared by Wicho: Syeda Hodgson Under the Supervision of: Dr. Antoine Torres M.D. First contact with patient: 08:44 Chief Complaint: CONGESTION Stated Complaint: CHEST AND HEAD COLD History of Present Illness The patient is a 66 year old female who presents to the Emergency Room with complaints of head and chest congestion over the last week and a half. The patient states that she has had a constant cough and a sore back secondary to coughing. She also reports having a headache but denies being febrile or having chest pain. She denies falling or hitting her head. The patient states that she was in the hospital in late May for a pulmonary embolism. She states concern that her pulmonary embolism is going to come back. The patient currently denies being on antibiotics. She states that she is on Coumadin and reports that she has been taking it. She states that she has been using a nebulizer which has exacerbated her symptoms. The patient also reports having discomfort when she breaths. She states that when she had her blood clot that she was unable to breath and had a cough. Source of History: patient Onset: over the last week and a half Position: head, chest Quality: other (congestion) Modifying Factors (Worsening): other (nebulizer) Associated Symptoms: + headache, + cough, + back pain (secondary to coughing ), No fevers, No chest pain Review of Systems See HPI for pertinent positives & negatives. A total of 10 systems reviewed and were otherwise negative. Past Medical & Surgical Medical Problems: (1) COPD (chronic obstructive pulmonary disease) (2) Diabetes mellitus, type 2 (3) GERD (gastroesophageal reflux disease) (4) History of DVT of lower extremity (5) History of pulmonary embolism (6) Hypertension (7) Obesity, morbid (8) Pulmonary hypertension (9) Thyroid nodule Surgical Problems: (1) H/O total knee replacement Old medical records were reviewed. Nurse's notes were reviewed and I agree with. She is on Coumadin for anticoagulation for PE Family History Patient reports no known family medical history. Social History Smoking Status: Current Every Day Smoker Alcohol Use: none Drug Use: none Marital Status: Housing Status: lives with family Occupation Status: employed Current/Historical Medications Scheduled Azithromycin (Zithromax Z-Gabriele), 0 PO UD Metformin HCl (Metformin HCl), 500 MG PO BIDM Metoprolol Tartrate (Lopressor), 25 MG PO BID Omeprazole (Prilosec), 20 MG PO BID Prednisone (Prednisone), 50 MG PO DAILY Sumatriptan Succinate (Sumatriptan Succinate), 50 MG PO PRN UD Warfarin Sodium (Coumadin), 5 MG PO 5XWK Warfarin Sodium (Coumadin), 7.5 MG PO 2XWK Scheduled PRN Acetaminophen (Tylenol Extra Strength), 1,000 MG PO Q8 PRN for Pain Allergies Coded Allergies: No Known Allergies (Unverified , 09/16/17) Physical Exam Vital Signs Date Time Temp Pulse Resp B/P (MAP) Pulse Ox O2 Delivery O2 Flow Rate FiO2 09/16/17 10:41 67 18 152/87 96 09/16/17 10:30 66 18 152/87 96 Room Air 09/16/17 08:39 36.6 65 18 152/87 96 Room Air Physical Exam General: Non-ill appearing middle aged female in no acute distress. HEENT: Normal cephalic atraumatic. Pupils are equal round and reactive to light. Extraocular movements are intact. Oropharynx is pink with moist mucous membranes. No swelling of the mouth lips or tongue. Neck: Supple with a midline trachea. No meningeal signs or stiffness, no JVD or bruits. No Stridor. Chest: Frequent dry hacking cough. No wheezes. Scattered rhonchi but good air movement. No increased work of breathing. No respiratory distress. Heart: regular rate and rhythm. Abdomen: Soft nontender, nondistended without rebound guarding or rigidity. Extremities: No cyanosis clubbing or edema. No calf tenderness or assymetry Spine/Back. Non tender to palpation. No CVA tenderness Skin: Good turgor without rashes. Neurologic exam: Cranial nerves two through 12 are intact. Motor and sensation are intact and symmetrical throughout. Medical Decision & Procedures ER Provider Diagnostic Interpretation: Radiology results as stated below per my review and radiologist interpretation: CHEST ONE VIEW PORTABLE CLINICAL HISTORY: Atypical chest pain COMPARISON STUDY: 07/07/2017 FINDINGS: The heart is mildly enlarged. There is aortic tortuosity. There is no focal pulmonary consolidation. There is no failure. There are no pleural effusions.[ IMPRESSION: No active disease in the chest. Electronically signed by: Karan Mancilla M.D. 09/16/2017 9:20 AM Dictated Date/Time: 09/16/2017 9:20 AM Laboratory Results 09/16/17 09:10 Red Blood Count 4.49, Mean Corpuscular Volume 93.8, Mean Corpuscular Hemoglobin 31.8, Mean Corpuscular Hemoglobin Concent 34.0, Mean Platelet Volume 9.8, Neutrophils (%) (Auto) 43.8, Lymphocytes (%) (Auto) 47.4, Monocytes (%) (Auto) 4.4, Eosinophils (%) (Auto) 3.4, Basophils (%) (Auto) 0.9, Neutrophils # (Auto) 3.24, Lymphocytes # (Auto) 3.52, Monocytes # (Auto) 0.33, Eosinophils # (Auto) 0.25, Basophils # (Auto) 0.07 09/16/17 09:10 Test 09/16/17 09:10 09/16/17 09:15 White Blood Count 7.42 K/uL (4.8-10.8) Red Blood Count 4.49 M/uL (4.2-5.4) Hemoglobin 14.3 g/dL (12.0-16.0) Hematocrit 42.1 % (37-47) Mean Corpuscular Volume 93.8 fL (80-100) Mean Corpuscular Hemoglobin 31.8 pg (25-34) Mean Corpuscular Hemoglobin Concent 34.0 g/dl (32-36) Platelet Count 217 K/uL (130-400) Mean Platelet Volume 9.8 fL (7.4-10.4) Neutrophils (%) (Auto) 43.8 % Lymphocytes (%) (Auto) 47.4 % Monocytes (%) (Auto) 4.4 % Eosinophils (%) (Auto) 3.4 % Basophils (%) (Auto) 0.9 % Neutrophils # (Auto) 3.24 K/uL (1.4-6.5) Lymphocytes # (Auto) 3.52 K/uL (1.2-3.4) Monocytes # (Auto) 0.33 K/uL (0.11-0.59) Eosinophils # (Auto) 0.25 K/uL (0-0.5) Basophils # (Auto) 0.07 K/uL (0-0.2) RDW Standard Deviation 49.3 fL (36.4-46.3) RDW Coefficient of Variation 14.4 % (11.5-14.5) Immature Granulocyte % (Auto) 0.1 % Immature Granulocyte # (Auto) 0.01 K/uL (0.00-0.02) Prothrombin Time 24.9 SECONDS (9.0-12.0) Prothromb Time International Ratio 2.4 (0.9-1.1) Activated Partial Thromboplast Time 43.2 SECONDS (21.0-31.0) Partial Thromboplastin Ratio 1.7 D-Dimer < 190 ug/L FEU (0-500) Anion Gap 7.0 mmol/L (3-11) Est Creatinine Clear Calc Drug Dose 87.7 ml/min Estimated GFR () 72.3 Estimated GFR (Non- 62.4 BUN/Creatinine Ratio 13.0 (10-20) Calcium Level 8.9 mg/dl (8.5-10.1) Total Bilirubin 0.3 mg/dl (0.2-1) Direct Bilirubin < 0.1 mg/dl (0-0.2) Aspartate Amino Transf (AST/SGOT) 21 U/L (15-37) Alanine Aminotransferase (ALT/SGPT) 35 U/L (12-78) Alkaline Phosphatase 104 U/L (45-117) Total Protein 7.2 gm/dl (6.4-8.2) Albumin 3.2 gm/dl (3.4-5.0) Lipase 193 U/L (73-393) Bedside Troponin I < 0.030 ng/ml (0-0.045) Laboratory studies as stated above per my review. Medications Administered Medications (Trade) Dose Ordered Sig/Lilia Route Start Time Stop Time Status Last Admin Dose Admin Methylprednisolone Sodium Succinate (Solu-Medrol IV) 125 mg NOW STAT IV 09/16/17 10:08 09/16/17 10:10 DC 09/16/17 10:16 125 MG Azithromycin (Zithromax Tab) 500 mg NOW ONCE PO 09/16/17 10:30 09/16/17 10:31 DC 09/16/17 10:41 500 MG ECG Per My Interpretation Indication: other (cough) Rate (beats per minute): 55 Rhythm: sinus bradycardia Findings: 1st degree AV block, no acute ischemic change, other (left axis deviation, left ventricular hypertrophy) Change: no significant change (from 07/07/17) ED Course 0845: Past medical records reviewed. The patient was evaluated in room B12B, and a complete history and physical examination were performed. 0938: I checked on the patient and she is doing well. 1006: I reevaluated the patient. 1008: Ordered Methylprednisolone Sodium Succinate 125 mg IV. 1030: Ordered Zithromax Tab 500 mg PO. 1040: Upon reevaluation, the patient is resting. I discussed the results and treatment plan with her. She verbalized agreement of the treatment plan. The patient was discharged home. Medical Decision Differentials include, but are not limited to; bronchitis, pneumonia, PE, cardiac disease, electrolyte or metabolic abnormality. This patient comes in as described above. She was placed in room B 12. She is here for complaint of cough and congestion. She has had a history of bronchitis and COPD and tends to get better with antibiotics and then gets worse again. Also complicating this is the fact that she had a PE earlier this year and is on anticoagulation. She has an inhaler at home but thinks that makes her cough more. On exam, she is coughing but appears in no respiratory distress. She is non-hypoxemic. IV access was established, EKG and blood work was obtained as well as chest x-ray. She was reassessed frequently. Chest x- ray does not show congestive heart failure pneumonia or pneumothorax. Her EKG is unremarkable does not suggest acute cardiac events and her troponin is also within normal limits. She has no significant electrolyte or metabolic abnormalities. Her d-dimer is normal and she is therapeutic on her Coumadin. This in combination of her symptoms being atypical for a PE make PE highly unlikely. I do not feel a need to do another CAT scan of her chest at this point she is happy with this. She has had some sinus congestion causing a headache but I do not think she has a severe headache he needs a CAT scan of her head. She agrees with this. She says that azithromycin and steroids have worked well for her before. She has been on Doxy recently so was switched up with azithromycin. The first dose given here. She was given a prescription as well. She was also given Solu-Medrol 125 mg IV. She was also given a prescription for prednisone 50 mg a day for the next 4 days. She should rest and drink plenty of fluids. Use her inhaler and follow-up with her regular doctor next couple days for recheck and return to the ER if: Worsening of symptoms, shortness of breath, fever or chills, any new problems or concerns. She was happy the plan and discharged to home. Medication Reconcilliation Current Medication List: was personally reviewed by me Blood Pressure Screening Patient's blood pressure: Elevated blood pressure Blood pressure disposition: Referred to PCP Impression Primary Impression: Bronchitis Additional Impressions: Cough COPD (chronic obstructive pulmonary disease) Scribe Attestation The scribe's documentation has been prepared under my direction and personally reviewed by me in its entirety. I confirm that the note above accurately reflects all work, treatment, procedures, and medical decision making performed by me. Departure Information Dispostion Home / Self-Care Prescriptions Prednisone (Prednisone) 50 Mg Tab 50 MG PO DAILY, #4 TAB Prov: Antoine Torres M.D. 09/16/17 Azithromycin (ZITHROMAX Z-GABRIELE) 250 Mg Tab 0 PO UD, #1 PKT Prov: Antoine Torres M.D. 09/16/17 Referrals Jacob Enciso M.D. (MEDICAL) (PCP) Maryann De Los Santos D.O. Forms HOME CARE DOCUMENTATION FORM, IMPORTANT VISIT INFORMATION Patient Instructions My [facility] Additional Instructions Rest Drink plenty of fluids Use your inhalers as needed Use Azithromycin zPak as directed Use prednisone 50 mg as directed REturn if: worsening of symptoms, increasing pain, shortness of breath, any new problems or concerns Follow-up with your doctor Monday for recheck Problem Qualifiers
--- NOTE | 2017-09-16 09:22 | DIAGNOSTIC IMAGING REPORT ---
CHEST ONE VIEW PORTABLE CLINICAL HISTORY: Atypical chest pain COMPARISON STUDY: 07/07/2017 FINDINGS: The heart is mildly enlarged. There is aortic tortuosity. There is no focal pulmonary consolidation. There is no failure. There are no pleural effusions.[ IMPRESSION: No active disease in the chest. Electronically signed by: Karan Mancilla M.D. 09/16/2017 9:20 AM Dictated Date/Time: 09/16/2017 9:20 AM
[2017-09-16 09:24] LABS: BASO % 0.9 %; BASO ABS # 0.07 K/uL (0-0.2); EOS % 3.4 %; EOS ABS # 0.25 K/uL (0-0.5); HEMATOCRIT 42.1 % (37-47); HEMOGLOBIN 14.3 g/dL (12.0-16.0); IG# 0.01 K/uL (0.00-0.02); LYMPH % 47.4 %; LYMPH ABS # 3.52 K/uL (1.2-3.4); MEAN CELL VOLUME 93.8 fL (80-100); MEAN CORPUSCULAR HEMOGLOBIN 31.8 pg (25-34); MEAN PLATELET VOLUME 9.8 fL (7.4-10.4); MONO % 4.4 %; MONO ABS # 0.33 K/uL (0.11-0.59); NEUT % 43.8 %; NEUT ABS # 3.24 K/uL (1.4-6.5); PLATELET COUNT 217 K/uL (130-400); RED CELL DISTRIBUTION WIDTH CV 14.4 % (11.5-14.5); RED CELL DISTRIBUTION WIDTH SD 49.3 fL (36.4-46.3); WHITE BLOOD COUNT 7.42 K/uL (4.8-10.8)
[2017-09-16] MEDS ORDERED: PIPERACILLIN/TAZOBACTAM 4.5 GM/100ML D5W IV STA (09:34)
[2017-09-16 09:35] LABS: INR 2.4 (0.9-1.1); PTT PATIENT 43.2 SECONDS (21.0-31.0)
[2017-09-16 09:44] LABS: ALBUMIN 3.2 gm/dl (3.4-5.0); ALKALINE PHOSPHATASE 104 U/L (45-117); ALT/SGPT 35 U/L (12-78); AST/SGOT 21 U/L (15-37); BLOOD UREA NITROGEN 12 mg/dl (7-18); CALCIUM 8.9 mg/dl (8.5-10.1); CARBON DIOXIDE 24 mmol/L (21-32); CREATININE 0.95 mg/dl (0.60-1.20); GLUCOSE 131 mg/dl (70-99); LIPASE 193 U/L (73-393); POTASSIUM 4.1 mmol/L (3.5-5.1); SODIUM 139 mmol/L (136-145); TOTAL PROTEIN 7.2 gm/dl (6.4-8.2)
[2017-09-16] MEDS ORDERED: METHYLPREDNISOLONE 125 MG VIAL IV STA (10:08)
[2017-09-16] MEDS ORDERED: PRED50TA PO (10:14)
[2017-09-16] MEDS ORDERED: AZITTAB PO (10:14)
[2017-09-16] MEDS ORDERED: AZITHROMYCIN 250 MG TAB PO ONE (10:30)
[2017-09-16 10:41] VITALS: BP 152/87; PULSE 67; O2SAT 96
== END 2017-09-16 10:42 | disposition home or self-care (01) ==
LOC: C.EDB 08:37
DX: J44.0 Chronic obstructive pulmonary disease with (acute) lower respiratory infection (principal); Z86.718 Personal history of other venous thrombosis and embolism; Z86.711 Personal history of pulmonary embolism; Z79.01 Long term (current) use of anticoagulants; E11.9 Type 2 diabetes mellitus without complications; I10 Essential (primary) hypertension; E66.01 Morbid (severe) obesity due to excess calories; I27.20 Pulmonary hypertension, unspecified; Z96.659 Presence of unspecified artificial knee joint; F17.210 Nicotine dependence, cigarettes, uncomplicated; Z79.899 Other long term (current) drug therapy

== ENCOUNTER → 2017-10-16 | Outpatient (CLI) | payer OTHER ==
[~2017-10-16] MED LIST changes: -DFL100 PO; +PRED50TA PO
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
== END | disposition home or self-care (01) ==
LOC: C.ULTR 17:44
PROVIDERS: ATTEND Physician Assistant
DX: I26.99 Other pulmonary embolism without acute cor pulmonale (principal); M79.661 Pain in right lower leg; Z79.01 Long term (current) use of anticoagulants; Z51.81 Encounter for therapeutic drug level monitoring

== ENCOUNTER 2018-09-17 16:20 | Inpatient (IN) ==
[2018-09-17] MEDS ORDERED: SODIUM CHLORIDE 0.9% 1000ML 2,000 ML IV ONE (16:51)
[2018-09-17] MEDS ORDERED: ALBUT/IPRATROP 3MG/0.5MG NEB 3 ML VIAL NEB STA (16:55)
[2018-09-17] MEDS ORDERED: SODIUM CHLORIDE 0.9% 1000ML 1,000 ML IV SCH (17:00)
[2018-09-17 17:01] LABS: Basophils # (auto) 0.05 K/uL (0-0.2); Basophils % (auto) 0.6 %; Eosinophils # (auto) 0.01 K/uL (0-0.5); Eosinophils % (auto) 0.1 %; Hematocrit (blood only) 40.8 % (37-47); Hemoglobin 14.3 g/dL (12.0-16.0); Immature Granulocytes # (auto) 0.03 K/uL (0.00-0.02); Immature Granulocytes % (auto) 0.3 %; Lymphocytes # (auto) 0.91 K/uL (1.2-3.4); Lymphocytes % (auto) 10.4 %; Mean Corpuscular Hemoglobin 32.8 pg (25-34); Mean Corpuscular Volume 93.6 fL (80-100); Mean Platelet Volume 10.5 fL (7.4-10.4); Monocytes # (auto) 0.74 K/uL (0.11-0.59); Monocytes % (auto) 8.5 %; Neutrophils # (auto) 6.98 K/uL (1.4-6.5); Neutrophils % (auto) 80.1 %; Platelet Count 152 K/uL (130-400); RDW Coefficient of Variation 14.4 % (11.5-14.5); RDW Standard Deviation 48.7 fL (36.4-46.3); Red Blood Count 4.36 M/uL (4.2-5.4); White Blood Count 8.72 K/uL (4.8-10.8)
[2018-09-17 17:22] LABS: Alanine Aminotransferase 32 U/L (12-78); Albumin Level 3.3 gm/dl (3.4-5.0); Aspartate Aminotransferase 21 U/L (15-37); BUN Creatinine Ratio 10.9 (10-20); Blood Urea Nitrogen 13 mg/dl (7-18); Calcium 9.1 mg/dl (8.5-10.1); Carbon Dioxide 23 mmol/L (21-32); Chloride 105 mmol/L (98-107); Creatinine Clr Calc Pharmacy 72.5 ml/min; Est GFR (Non-African American) 49.2; Glucose 187 mg/dl (70-99); Lipase 70 U/L (73-393); Potassium 3.6 mmol/L (3.5-5.1); Sodium 137 mmol/L (136-145)
[2018-09-17 17:28] LABS: Albumin Globulin Ratio 0.7 (0.9-2); Alkaline Phosphatase 98 U/L (45-117); Bilirubin,Total 0.7 mg/dl (0.2-1); Globulin 4.7 gm/dl (2.5-4.0); Troponin I < 0.015 ng/ml (0-0.045)
--- NOTE | 2018-09-17 17:30 | XRay Report ---
XR chest 1V portable CLINICAL HISTORY: fever COMPARISON STUDY: 06/05/2018 FINDINGS: The heart is enlarged. There are low lung volumes with hypoventilatory changes the lung bas es. There is no lobar consolidation. There are no significant pleural effusions.[ IMPRESSION: No significant change from the prior study. Persistent cardiomegaly, low lung volumes, an d hypoventilatory changes at the lung bases. No evidence of lobar consolidation Electronically signed by: Karan Mancilla M.D. 09/17/2018 5:29 PM
[2018-09-17 17:43] LABS: Appearance Urine Cloudy (Clear); Bacteria Urine Automated Negative (Negative); Bilirubin Urine Negative (Negative); Blood Urine Trace (Negative); Color Urine Yellow; Epithelial Cell Urine Auto >30 /lpf (0-5); Glucose Urine UA Negative (Negative); Ketones Urine Negative (Negative); Leukocyte Esterase Urine 2+ (Negative); Nitrite Urine Negative (Negative); Specific Gravity Urine 1.014 (1.000-1.030); Urobilinogen Urine Negative (Negative); WBC Urine Automated >30 /hpf (0-5); pH Urine 7.5 (4.5-7.5)
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
[2018-09-17 18:07] LABS: Protein Urine Trace (Negative)
[2018-09-17 18:10] LABS: RBC Urine Automated >30 /hpf (0-4)
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
[2018-09-17] MEDS ORDERED: BENZONATATE 100 MG CAPSULE PO ONE (18:53)
--- NOTE | 2018-09-17 18:58 | Emergency Department Note ---
Entered by Deysi Ernst acting as a scribe for History of Present Illness General Chief complaint: Fall Source: patient History of Present Illness Provider complaint: Fall Onset (ago): hour(s) less than 1 Location: head Pain Consistency: + other (episode) Maximum Pain Intensity: 0 Quality: + other (fall) Associated symptoms: + other (bruising on back of head, can not remember things, dizzy when standing, burning pain in lower abdomen, burning pain upon urination); no cough Treatments prior to arrival: NSAID (Tylenol 2 hours ago) The patient is a 67 year old female who presents to the ED with complaints of an episode of a fall that occurred less than 1 hour ago. Per triage note, the patient got up and went outside today and fell, but does not remember why she went outside or why she fell. Per triage note, the patient has bruising on the back of her head, feels dizzy when standing, and is currently on blood thinners. The patient was discharged this morning from the ED following a fall. The patient states that she has burning pain in her lower abdomen and upon urination. The patient states that she took Tylenol 2 hours ago. The patient denies a cough and history of kidney stones. Home Medications Home Medications Medication Instructions Recorded Confirmed Type gabapentin 200 mg PO BID 01/21/18 09/17/18 History levocetirizine 5 mg PO DAILY PRN 01/21/18 09/17/18 History metformin 1,000 mg PO BID 01/21/18 09/17/18 History metoprolol tartrate 25 mg PO BID 01/21/18 09/17/18 History montelukast 10 mg PO HS 01/21/18 09/17/18 History omeprazole 20 mg PO BID 01/21/18 09/17/18 History warfarin 5 mg PO 5XWK 01/21/18 09/17/18 History warfarin 7.5 mg PO 2XWK 01/21/18 09/17/18 History PreserVision AREDS-2 1 cap PO DAILY 09/17/18 09/17/18 History cefdinir 300 mg PO BID 10 Days #20 cap 09/17/18 09/17/18 Rx furosemide [Lasix] 20 mg PO DAILY PRN 09/17/18 09/17/18 History ipratropium-albuterol 3 ml INHALATION Q4H PRN 09/17/18 09/17/18 History Allergies Allergy/AdvReac Type Severity Reaction Status Date / Time No Known Allergies Allergy Verified 09/17/18 17:09 Past Med/Surg History Medical History Hypertension (Chronic) GERD (gastroesophageal reflux disease) (Chronic) COPD (chronic obstructive pulmonary disease) (Chronic) History of pulmonary embolism (Chronic) History of DVT of lower extremity (Chronic) Diabetes mellitus, type 2 (Chronic) Pulmonary hypertension (Chronic) Thyroid nodule (Chronic) "CT chest 05/18/17" Obesity, morbid (Chronic) Surgical History H/O total knee replacement (Chronic) Family History Other No known health problems No significant family history Social History Preferred Language: Citizen Of [place] Communication Ability: Effective 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 and A total of 10 systems reviewed and were otherwise negative Physical Exam Vital Signs Vital Signs - 24 hr 09/17/18 16:26 09/17/18 16:32 09/17/18 16:36 Temperature 39.1 C H Temperature Source Axillary Sepsis Recent Fever Within 48 Hours Yes Sepsis New/Unexplained Change in Mental Status No Sepsis Action Taken by Nursing Physician Notified Pulse Rate 139 H 135 H 136 H Pulse Rate [Left Apical] Pulse Rate from SpO2 Sensor 139 H 134 H Respiratory Rate 20 37 H 30 H Respiratory Effort / Characteristics Blood Pressure 139/87 139/87 Blood Pressure [Right Arm] Blood Pressure Mean 104 104 Blood Pressure Mean [Right Arm] Pulse Oximetry 92 91 91 Oxygen Delivery Method Nasal Cannula Nasal Cannula Room Air Oxygen Flow Rate 2 2 09/17/18 16:40 09/17/18 16:42 09/17/18 16:50 Temperature Temperature Source Sepsis Recent Fever Within 48 Hours Sepsis New/Unexplained Change in Mental Status Sepsis Action Taken by Nursing Pulse Rate 131 H 130 H 127 H Pulse Rate [Left Apical] Pulse Rate from SpO2 Sensor 131 H 130 H 127 H Respiratory Rate 33 H 28 H 32 H Respiratory Effort / Characteristics Blood Pressure 124/88 Blood Pressure [Right Arm] Blood Pressure Mean 100 Blood Pressure Mean [Right Arm] Pulse Oximetry 93 93 95 Oxygen Delivery Method Nasal Cannula Nasal Cannula Nasal Cannula Oxygen Flow Rate 2 2 2 09/17/18 17:00 09/17/18 17:05 09/17/18 17:10 Temperature Temperature Source Sepsis Recent Fever Within 48 Hours Sepsis New/Unexplained Change in Mental Status Sepsis Action Taken by Nursing Pulse Rate 125 H 123 H Pulse Rate [Left Apical] 123 H Pulse Rate from SpO2 Sensor 125 H 124 H Respiratory Rate 31 H 20 29 H Respiratory Effort / Characteristics Non-Labored Spontaneous Blood Pressure Blood Pressure [Right Arm] Blood Pressure Mean Blood Pressure Mean [Right Arm] Pulse Oximetry 93 96 96 Oxygen Delivery Method Nasal Cannula Nasal Cannula Nasal Cannula Oxygen Flow Rate 2 2 2 09/17/18 18:00 09/17/18 19:00 09/17/18 19:30 Temperature Temperature Source Sepsis Recent Fever Within 48 Hours Sepsis New/Unexplained Change in Mental Status Sepsis Action Taken by Nursing Pulse Rate 120 H Pulse Rate [Left Apical] 121 H 117 H Pulse Rate from SpO2 Sensor 119 H 122 H Respiratory Rate 19 27 H 19 Respiratory Effort / Characteristics Blood Pressure 118/86 132/99 Blood Pressure [Right Arm] 134/86 118/86 Blood Pressure Mean 96 110 Blood Pressure Mean [Right Arm] 102 96 Pulse Oximetry 95 93 95 Oxygen Delivery Method Room Air Room Air Room Air Oxygen Flow Rate GENERAL: Awake, fatigue, well-appearing, in no distress, no slurred speech, eyes closed. HENT: Normocephalic, atraumatic. Oropharynx unremarkable. EYES: Normal conjunctiva. PERRL. Sclera non-icteric. NECK: Supple. No nuchal rigidity. RESPIRATORY: Expiratory wheezes. Normal respiratory effort. CARDIAC: Tachycardic. Normal rhythm. Extremities warm and well perfused. GI: Soft, non-distended. No tenderness to palpation. No rebound or guarding. No masses. RECTAL: Deferred. MUSCULOSKELETAL: Atraumatic. Chest examination reveals no tenderness. There is no CVA tenderness to palpation. LOWER EXTREMITIES: Calves are equal size bilaterally and non-tender. No edema NEURO: Normal sensorium. No sensory or motor deficits noted. No facial droop. SKIN: Warm and dry. No rash or jaundice noted. Course 1649: Past medical records reviewed. The patient was evaluated in room A4. A complete history and physical exam was performed. 1827: I discussed the patient's case with Dr. Dain Franz Urologmary. He will review the patient's case and call back. 183: Dr. Gautam is coming to see the patient. He recommends admission. 184: I discussed the patient's case with HUMERA Charles. She will be accepting the patent for Dr. Loly Wheatley. He will evaluate the patient for further management. Consultations Consultation #1: I discussed the patient's case with Dr. Dain Silvestre. He will review the patient's case and call back. Time: 18:27 Consultation #2: I discussed the patient's case with HUMERA Charles. She will be accepting the patent for Dr. Loly Wheatley. He will evaluate the patient for further management. Time: 18:45 Administered Medications Acetaminophen (Tylenol) 650 mg PO Q4H PRN PRN Reason: Pain or Fever Stop: 10/17/18 20:25 Last Admin: 09/17/18 21:28 Dose: 650 mg Documented by: [id number] Gabapentin (Neurontin) 200 mg PO BID [facility] Stop: 10/17/18 20:59 Last Admin: 09/17/18 21:27 Dose: 200 mg Documented by: [id number] Sodium Chloride (Nss 1000ml) 1,000 mls @ 150 mls/hr IV .Q6H40M [facility] Stop: 10/17/18 20:25 Last Admin: 09/17/18 21:27 Dose: 150 mls/hr Documented by: [id number] Cefepime HCl 1,000 mg/ Syringe 11.3 mls @ 5.5 mls/min IV BID [facility] Stop: 09/27/18 20:59 Last Admin: 09/17/18 22:13 Dose: 5.5 mls/min Documented by: [id number] Insulin Aspart (Novolog Flexpen) 0 units SC ACHS [facility] Stop: 10/17/18 20:59 Last Admin: 09/17/18 21:33 Dose: Not Given Documented by: [id number] Cosigned by: [id number] Metoprolol Tartrate (Lopressor) 25 mg PO BID [facility] Stop: 10/17/18 20:59 Last Admin: 09/17/18 21:27 Dose: 25 mg Documented by: [id number] Montelukast Sodium (Singulair) 10 mg PO HS [facility] Stop: 10/17/18 20:59 Last Admin: 09/17/18 21:27 Dose: 10 mg Documented by: [id number] Pantoprazole Sodium (Protonix) 40 mg PO BID [facility] Stop: 10/17/18 20:59 Last Admin: 09/17/18 21:27 Dose: 40 mg Documented by: [id number] Warfarin Sodium (Coumadin) 7.5 mg PO MoFr@1600 [facility] Stop: 10/17/18 15:59 Last Admin: 09/17/18 22:45 Dose: 7.5 mg Documented by: [id number] Discontinued Medications Albuterol (Duoneb) 3 ml NEB NOW STA Stop: 09/17/18 16:56 Last Admin: 09/17/18 17:04 Dose: 3 ml Documented by: [id number] Benzonatate (Tessalon Perle) 100 mg PO NOW ONE Stop: 09/17/18 18:54 Last Admin: 09/17/18 19:17 Dose: 100 mg Documented by: [id number] Sodium Chloride (Nss 1000ml) 1,000 mls @ 999 mls/hr IV .Q1H1M [facility] Stop: 09/17/18 18:00 Last Infusion: 09/17/18 18:00 Dose: 0 mls/hr Documented by: [id number] Admin: 09/17/18 17:06 Dose: 999 mls/hr Documented by: [id number] Sodium Chloride (Nss 1000ml) 2,000 mls @ 999 mls/hr IV .Q2H1M ONE Stop: 09/17/18 18:51 Last Infusion: 09/17/18 20:01 Dose: 0 mls/hr Documented by: [id number] Admin: 09/17/18 18:00 Dose: 999 mls/hr Documented by: [id number] Medical Decision Making Differential Diagnosis Differential diagnosis: Etiologies such as viral syndrome, otitis, pharyngitis, pneumonia, influenza, meningitis, urinary tract infection, septic arthritis, soft tissue infectious process, intra-abdominal process, sepsis, bacteremia, fracture, cervical/vertebral injury, dislocation, intra-abdominal process, pneumothorax, intrathoracic trauma, intracranial injury, soft tissue injury, neurologic process, as well as other traumatic pathologies were entertained. Medical Records Attestation: I reviewed the patient's medical records. Home Medications Current Medication List: was personally reviewed by mt Laboratory Data Attestation: I reviewed the patient's lab results. Result diagrams: 09/17/18 16:43 09/17/18 16:43 Lab Results 09/17/18 09/17/18 09/17/18 Range/Units 16:43 16:43 16:52 WBC 8.72 (4.8-10.8) K/uL RBC 4.36 (4.2-5.4) M/uL Hgb 14.3 (12.0-16.0) g/dL Hct 40.8 (37-47) % MCV 93.6 (80-100) fL MCH 32.8 (25-34) pg MCHC 35.0 (32-36) g/dL RDW Std Deviation 48.7 H (36.4-46.3) fL RDW Coeff of Adam 14.4 (11.5-14.5) % Plt Count 152 (130-400) K/uL MPV 10.5 H (7.4-10.4) fL Immature Gran % (Auto) 0.3 % Neut % (Auto) 80.1 % Lymph % (Auto) 10.4 % Oliver % (Auto) 8.5 % Eos % (Auto) 0.1 % Baso % (Auto) 0.6 % Immature Gran # (Auto) 0.03 H (0.00-0.02) K/uL Neut # (Auto) 6.98 H (1.4-6.5) K/uL Lymph # (Auto) 0.91 L (1.2-3.4) K/uL Oliver # (Auto) 0.74 H (0.11-0.59) K/uL Eos # (Auto) 0.01 (0-0.5) K/uL Baso # (Auto) 0.05 (0-0.2) K/uL Sodium 137 (136-145) mmol/L Potassium 3.6 (3.5-5.1) mmol/L Chloride 105 (98-107) mmol/L Carbon Dioxide 23 (21-32) mmol/L Anion Gap 9.0 (3-11) BUN 13 (7-18) mg/dl Creatinine 1.15 (0.6-1.2) mg/dl Est Cr Clr Drug Dosing 72.5 ml/min Est GFR ( Amer) 57.0 Est GFR (Non-Af Amer) 49.2 BUN/Creatinine Ratio 10.9 (10-20) Glucose 187 H (70-99) mg/dl POC Lactic Acid Escobar 1.86 H (0.90-1.70) mmol/L Calcium 9.1 (8.5-10.1) mg/dl Total Bilirubin 0.7 (0.2-1) mg/dl AST 21 (15-37) U/L ALT 32 (12-78) U/L Alkaline Phosphatase 98 (45-117) U/L Troponin I < 0.015 (0-0.045) ng/ml Total Protein 8.0 (6.4-8.2) gm/dl Albumin 3.3 L (3.4-5.0) gm/dl Globulin 4.7 H (2.5-4.0) gm/dl Albumin/Globulin Ratio 0.7 L (0.9-2) Lipase 70 L (73-393) U/L Urine Color Urine Appearance (Clear) Urine pH (4.5-7.5) Ur Specific [place] (1.000-1.030) Urine Protein (Negative) Urine Glucose (UA) (Negative) Urine Ketones (Negative) Urine Blood (Negative) Urine Nitrite (Negative) Urine Bilirubin (Negative) Urine Urobilinogen (Negative) Ur Leukocyte Esterase (Negative) Urine WBC (Auto) (0-5) /hpf Urine RBC (Auto) (0-4) /hpf U Hyaline Cast (Auto) (0-5) /lpf U Epithel Cells (Auto) (0-5) /lpf Urine Bacteria (Auto) (Negative) 09/17/18 Range/Units 17:25 WBC (4.8-10.8) K/uL RBC (4.2-5.4) M/uL Hgb (12.0-16.0) g/dL Hct (37-47) % MCV (80-100) fL MCH (25-34) pg MCHC (32-36) g/dL RDW Std Deviation (36.4-46.3) fL RDW Coeff of Adam (11.5-14.5) % Plt Count (130-400) K/uL MPV (7.4-10.4) fL Immature Gran % (Auto) % Neut % (Auto) % Lymph % (Auto) % Oliver % (Auto) % Eos % (Auto) % Baso % (Auto) % Immature Gran # (Auto) (0.00-0.02) K/uL Neut # (Auto) (1.4-6.5) K/uL Lymph # (Auto) (1.2-3.4) K/uL Oliver # (Auto) (0.11-0.59) K/uL Eos # (Auto) (0-0.5) K/uL Baso # (Auto) (0-0.2) K/uL Sodium (136-145) mmol/L Potassium (3.5-5.1) mmol/L Chloride (98-107) mmol/L Carbon Dioxide (21-32) mmol/L Anion Gap (3-11) BUN (7-18) mg/dl Creatinine (0.6-1.2) mg/dl Est Cr Clr Drug Dosing ml/min Est GFR ( Amer) Est GFR (Non-Af Amer) BUN/Creatinine Ratio (10-20) Glucose (70-99) mg/dl POC Lactic Acid Escobar (0.90-1.70) mmol/L Calcium (8.5-10.1) mg/dl Total Bilirubin (0.2-1) mg/dl AST (15-37) U/L ALT (12-78) U/L Alkaline Phosphatase (45-117) U/L Troponin I (0-0.045) ng/ml Total Protein (6.4-8.2) gm/dl Albumin (3.4-5.0) gm/dl Globulin (2.5-4.0) gm/dl Albumin/Globulin Ratio (0.9-2) Lipase (73-393) U/L Urine Color Yellow Urine Appearance Cloudy A (Clear) Urine pH 7.5 (4.5-7.5) Ur Specific [place] 1.014 (1.000-1.030) Urine Protein Trace H (Negative) Urine Glucose (UA) Negative (Negative) Urine Ketones Negative (Negative) Urine Blood Trace H (Negative) Urine Nitrite Negative (Negative) Urine Bilirubin Negative (Negative) Urine Urobilinogen Negative (Negative) Ur Leukocyte Esterase 2+ H (Negative) Urine WBC (Auto) >30 H (0-5) /hpf Urine RBC (Auto) >30 H (0-4) /hpf U Hyaline Cast (Auto) 1-5 (0-5) /lpf U Epithel Cells (Auto) >30 H (0-5) /lpf Urine Bacteria (Auto) Negative (Negative) Imaging Data Radiologist's Impression: Radiology results as stated below per my review and the radiologist's interpretation: XR chest 1V portable CLINICAL HISTORY: fever COMPARISON STUDY: 06/05/2018 FINDINGS: The heart is enlarged. There are low lung volumes with hypoventilatory changes the lung bases. There is no lobar consolidation. There are no significant pleural effusions.[ IMPRESSION: No significant change from the prior study. Persistent cardiomegaly, low lung volumes, and hypoventilatory changes at the lung bases. No evidence of lobar consolidation Electronically signed by: Karan Mancilla M.D. 09/17/2018 5:[address] head/brain wo con CLINICAL HISTORY: Head pain status post trauma COMPARISON STUDY: 06/05/2018 TECHNIQUE: Axial CT of the brain is performed from the vertex to the skull base. IV contrast was not administered for this examination. A dose lowering technique was utilized adhering to the principles of ALARA. CT DOSE: 5635.60 mGy.cm FINDINGS: No intra or extra-axial mass lesions are visualized. There is no CT evidence of acute cortical infarction. There is no evidence of midline shift. There is no acute hemorrhage. No calvarial fractures are visualized. There are patchy white matter hypodensities likely on a small vessel basis. There is no evidence of pathologic ventricular dilatation. There is no evidence of acute sinusitis. There is a posterior scalp contusion. The study is mildly compromised due to motion artifact. IMPRESSION: 1. Mildly compromised study due to motion artifact 2. Posterior scalp contusion 3. No acute intracranial findings Electronically signed by: Karan Mancilla M.D. 09/17/2018 5:[address] OF THE CERVICAL SPINE CLINICAL HISTORY: Neck pain status post trauma COMPARISON STUDY: Soft tissue neck CT dated 06/05/2018 CT DOSE: TECHNIQUE: CT scan of the cervical spine was performed from the skull base to the thoracic inlet. Images are reviewed in the axial, sagittal, and coronal planes. IV contrast was not administered for this examination. A dose lowering technique was utilized adhering to the principles of ALARA. FINDINGS: There is no evidence of pneumothorax. There is a stable multinodular left lobe thyroid gland with nodules measuring up to 19 mm. The prevertebral soft tissues are normal. No fractures or subluxations are visualized. There are multilevel degenerative changes IMPRESSION: 1. No evidence of acute fracture or traumatic subluxation. 2. Stable multinodular thyroid gland. Electronically signed by: Karan Mancilla M.D. 09/17/2018 5:[address] SCAN OF THE ABDOMEN AND PELVIS WITHOUT CONTRAST CLINICAL HISTORY: Midabdominal pain. History of trauma. Left renal calculus. Possible sepsis. COMPARISON STUDY: 09/17/2018, 2:05 AM TECHNIQUE: CT scan of the abdomen and pelvis was performed from the lung bases to the proximal femurs. Images are reviewed in the axial, sagittal, and coronal planes. IV contrast was not administered for this examination. A dose lowering technique was utilized adhering to the principles of ALARA. CT DOSE: FINDINGS: Lower chest: There are mild dependent atelectatic changes. Liver: There is severe hepatic steatosis. No focal masses are visualized. Gallbladder: There is vicarious excretion within the gallbladder. Spleen: Borderline enlarged measuring 12.2 cm Pancreas: Unremarkable. Adrenal glands: Unremarkable. Kidneys: There is a 16 mm right renal cortical cyst. There is a nonobstructing 2 mm left renal calculus. There is a punctate nonobstructing right renal calculus. There is a striated left-sided nephrogram. There is left-sided perinephric stranding. A striated nephrogram is most often seen in acute ure teral obstruction and pyelonephritis. Renal vein thrombosis and renal contusion can also demonstrate this pattern. There are several small calcifications within the pelvis in close proximity to the left ureter. Although vascular calcifications are favored, a distal ureteral calculus cannot be excluded with certainty. If further workup is deemed clinically necessary, a CT urogram could be obtained in follow-up in attempt to opacify the ureter and determine whether these calcifications or ureteral or extra ureteral. Bowel: There are no transition zones to indicate bowel obstruction. There is no acute diverticulitis. The appendix is not visualized with certainty. There are no findings to indicate acute appendicitis. Peritoneum: There is no intraperitoneal free air or abdominal ascites. Vasculature: Atheromatous calcifications are present within the aorta and iliac vessels. There is no aneurysm Adenopathy: None. Pelvic viscera: The uterus is surgically absent Skeletal structures: No destructive osseous lesions are seen. IMPRESSION: 1. No evidence of bowel obstruction. No evidence of free air 2. Severe hepatic steatosis 3. Bilateral nephrolithiasis 4. Striated left-sided nephrogram with perinephric infiltration. This is most often seen in pyelonephritis and ureteral obstruction. Clinical correlation in this regard is advocated. 5. Left pelvic basin calcifications, vascular versus ureteral calculi without significant hydronephrosis Electronically signed by: Karan Mancilla M.D. 09/17/2018 6:13 PM ECG Data Attestation: I personally reviewed and interpreted this ECG as follows: Indication: tachycardia Rate (beats per minute): 133 Rhythm: sinus tachycardia Findings: + RBBB (increased) and + left axis deviation; no PVC and no ST elevation Blood Pressure Blood Pressure Findings: Normal blood pressure Blood Pressure Disposition: did not require urgent referral Head Trauma GCS Score: 14 MDM Narrative Patient is a 67-year-old female GERD, COPD, PE/DVT currently on warfarin presenting today after wandering outside and fell. She does not know why she went outside, mild confusion initially. Planes of little bit of dizziness on standing as well as fever. Patient noted to be febrile and tachycardic as well as tachypneic upon arrival with some expiratory wheeze. Was seen in the ER last night and reviewed that work-up. Positive gram-negative blood culture from that time. Concern for sepsis. Cefepime ordered. Given a DuoNeb for some respiratory wheezes well. X-ray ordered. Negative CT of the chest earlier today. CT the abdomen with concern for possible stone earlier. Given the sepsis and concern for septic stone a noncontrast CT scan was complete the abdomen pelvis. CT the head and cervical spine completed given the report of fall. Basic labs were completed showing no significant leukocytosis or anemia. Lactate not elevated above 2. No significant kidney dysfunction noted. Patient denies a history of kidney stone. Does report some intermittent left groin pain but not reproducible on exam. CT scan of the head and neck are wi thout acute traumatic injuries of significance. CT abdomen pelvis with no evidence of bowel obstruction. There is some left-sided perinephric infiltration. Discussed with urology are reviewed imaging from today and last night. Urologist recommended medical admission and would evaluate the patient but did not acutely feel emergent surgical intervention was indicated at this time. On reassesment patient tachycardia mildly improved and mentation clearer. Patient had some improvement of her breathing with a breathing treatment given Tessalon Perle for mild cough. No CT evidence of pneumonia based on imaging from last night. Already received cefepime. 3 L of IV fluid ordered. Discussed with the hospitalist for admission. Impression & Plan Sepsis, Pyelonephritis, Gram-negative bacteremia, Tachycardia, Confusion Critical Care Time Critical Care Time: Yes Total Critical Care Time: 32 I have personally spent 32 minutes of critical care time in the direct management of this patient. This includes bedside care, interpretation of diagnostic studies, and testing, discussion with consultants, patient, and family members, and other required patient management activities. These 32 minutes is in excess of all separately billable procedures. Discharge Plan Visit Data *Final* Discharge Date/Time: 09/17/18 20:17 Chief Complaint: Fall ED Provider: Umberto Reza Discharge Problem: Sepsis, Pyelonephritis, Gram-negative bacteremia, Tachycardia, Confusion Patient Disposition: Admitted As Inpatient Discharge Instructions Interventions: ED Discharge Assessment Last Done: 09/17/18 20:17 Discharge Problem: Sepsis Qualifiers: Sepsis type: sepsis due to unspecified organism Qualified Code(s): A41.9 - Sepsis, unspecified organism The scribe's documentation has been prepared under my direction and personally reviewed by me in its entirety. I confirm that the note above accurately reflects all work, treatment, procedures, and medical decision making performed by me.
[2018-09-17] MEDS ORDERED: FUROSEMIDE 20 MG TAB PO PRN (20:26)
[2018-09-17] MEDS ORDERED: ONDANSETRON INJ 2 MG/ML 2 ML VIAL IV PRN (20:26)
[2018-09-17] MEDS ORDERED: ALBUT/IPRATROP 3MG/0.5MG NEB 3 ML VIAL INH PRN (20:26)
[2018-09-17] MEDS ORDERED: MoRPHine SULFATE 2 MG/ML CARP IV PRN (20:26)
[2018-09-17] MEDS ORDERED: NITROGLYCERIN SL 0.4 MG/TAB TAB SL PRN (20:26)
[2018-09-17] MEDS ORDERED: CONSULT PHARMACY STA (20:26)
[2018-09-17] MEDS ORDERED: CEFEPIME CONSULT ACTIVE PRN (20:40)
--- NOTE | 2018-09-17 20:45 | Urology Consultation ---
Date of Consultation September 17, 2018 Assessment & Plan (1) Pyelonephritis: Pyelo & non-obstructing renal stones - I do not appreciate any obstructing elements or stones - I believe she should be managed with IVF and antibiotics as pyelonephritis - she may continue to have fluctuations in BP, HR, temp for several days after starting treatment - keep her appt with Dr. Tran for next week History of Present Illness Attending Physician: Karis Garcia MD History of Present Illness Pt presenting to the ER for the second time in 24 hrs - developed shaking chills and body aches yesterday - also complained of SOB with some left sided CP and some chronic left groin pain - evaluated in the ER - nit pos UA, imaging, and remainder of evaluation ultimately led to a d/c home - unfortunately, she fell today - striking her head and lower back - on repeat eval, hypertensive, tachycardic, febrile - UA no longer nit pos - no significant leukocytosis - she has never seen a urologist (but has an appointment with Dr. Tran next week) - long hx of UTIs (many per year) - never a stone CT (2 in past 24hrs) - reviewed these studies personally and at length - I do not appreciate any ureteral stones on the left or right. She has several vascular calcifications close to the left ureter, but it seems that following the ureter fails to show any obstructing calculi - she does have renal stone (non-obstructing) and some stranding around the left kidney (more on the 2nd CT) Allergies Allergy/AdvReac Type Severity Reaction Status Date / Time No Known Allergies Allergy Verified 09/17/18 17:09 Home Medications Home Medications Medication Instructions Recorded Confirmed Type gabapentin 200 mg PO BID 01/21/18 09/17/18 History levocetirizine 5 mg PO DAILY PRN 01/21/18 09/17/18 History metformin 1,000 mg PO BID 01/21/18 09/17/18 History metoprolol tartrate 25 mg PO BID 01/21/18 09/17/18 History montelukast 10 mg PO HS 01/21/18 09/17/18 History omeprazole 20 mg PO BID 01/21/18 09/17/18 History warfarin 5 mg PO 5XWK 01/21/18 09/17/18 History warfarin 7.5 mg PO 2XWK 01/21/18 09/17/18 History PreserVision AREDS-2 1 cap PO DAILY 09/17/18 09/17/18 History cefdinir 300 mg PO BID 10 Days #20 cap 09/17/18 09/17/18 Rx furosemide [Lasix] 20 mg PO DAILY PRN 09/17/18 09/17/18 History ipratropium-albuterol 3 ml INHALATION Q4H PRN 09/17/18 09/17/18 History Patient History Medical History Hypertension (Chronic) GERD (gastroesophageal reflux disease) (Chronic) COPD (chronic obstructive pulmonary disease) (Chronic) History of pulmonary embolism (Chronic) History of DVT of lower extremity (Chronic) Diabetes mellitus, type 2 (Chronic) Pulmonary hypertension (Chronic) Thyroid nodule (Chronic) "CT chest 05/18/17" Obesity, morbid (Chronic) Surgical History H/O total knee replacement (Chronic) Family History Other No known health problems No significant family history Social History Preferred Language: French Communication Ability: Effective Mandrel Maker Required: No Beliefs That Will Affect Care: None Current Living Situation: Family Current Living Situation Comment: lives w/ dtr Other Information That Helps Us Care for You: No Feels Safe at Home: Yes Safety Concerns: Feels Safe At This Time Smoking Status: Current every day smoker Tobacco Type: cigarettes Cigarettes Per Day: 4-5/day Do You Dip or Chew Tobacco: No Second Hand Exposure: Yes Tobacco Cessation Education Requested by Patient: No Hx Alcohol Use: No Hx Substance Use: No Review of Systems Constitutional: as per Subjective / HPI, + fever, + chills, + body aches and + fatigue Eyes: no blind spots Ear, Nose, Mouth, Throat: pain in the back of her head from her fall Respiratory: + cough, + dyspnea, + dyspnea on exertion and + pain on inspiration Cardiovascular: + dyspnea on exertion; no chest pain and no dyspnea Gastrointestinal: no abdominal pain, no nausea and no vomiting Genitourinary: as per Subjective / HPI; no dysuria, no decreased urination, no hematuria and no flank pain Musculoskeletal: + back pain (from fall ); no neck pain Integumentary: no rash Neurologic: + unsteadiness, + falls, + generalized weakness and + confusion Endocrine: + fatigue Physical Exam Physical Exam: Tachycardic febrile comfortable appearing appropriately interactive AAOx3 answering questions appropriately - some lapses in memory of events bruising/ecchymosis on the back of her head cough - some mild respiratory exertion tachy abd soft - no CVA tenderness on the left or the right - no rebound, no guarding mild edema no adenopathy no skin changes full ROM Results & Data Vital Signs (Past 12 Hours) Vital Signs Temp Pulse Pulse Resp BP BP Pulse Ox 09/17/18 20:17 122 H 23 165/91 H 95 09/17/18 20:01 23 165/91 H 95 09/17/18 20:00 18 09/17/18 19:30 19 132/99 95 09/17/18 19:00 120 H 117 H 27 H 118/86 118/86 93 09/17/18 18:00 121 H 19 134/86 95 09/17/18 17:10 123 H 29 H 96 09/17/18 17:05 123 H 20 96 09/17/18 17:00 125 H 31 H 93 09/17/18 16:50 127 H 32 H 95 09/17/18 16:42 130 H 28 H 124/88 93 09/17/18 16:40 131 H 33 H 93 09/17/18 16:36 39.1 C H 136 H 30 H 139/87 09/17/18 16:32 135 H 37 H 91 09/17/18 16:26 139 H 20 139/87 92
[2018-09-17] MEDS ORDERED: CEFEPIME 2,000 MG in SYRINGE 7.5 ML IV SCH (21:00)
[2018-09-17] MEDS: GABAPENTIN 100 MG CAP PO SCH (21:27)
[2018-09-17] MEDS: SODIUM CHLORIDE 0.9% 1000ML 1,000 ML IV SCH (21:27)
[2018-09-17] MEDS: METOPROLOL TARTRATE 25 MG TAB PO SCH (21:27)
[2018-09-17] MEDS: MONTELUKAST SODIUM 10 MG TABLET PO SCH (21:27)
[2018-09-17] MEDS: PANTOprazole 40 MG TAB PO SCH (21:27)
[2018-09-17] MEDS: ACETAMINOPHEN 325 MG TAB PO PRN (21:28)
[2018-09-17] MEDS ORDERED: WARFARIN SOD 7.5 MG TAB PO SCH (21:30)
[2018-09-17] MEDS: INSULIN ASPART 100 UNITS/ML 3 ML PEN SC SCH (21:33)
--- NOTE | 2018-09-17 21:55 | History and Physical Report ---
DATE OF ADMISSION: 09/17/2018 CHIEF COMPLAINT: Fever and fall. HISTORY OF PRESENT ILLNESS: This is a 67-year-old female with past medical history significant for type 2 diabetes, bilateral pulmonary embolism on Coumadin, COPD, pulmonary hypertension, hypertension, obesity, GERD, stress urinary incontinence, sacroiliitis, primary osteoarthritis, tobacco use disorder, who lives with his daughter. Ambulates without any help, presents with fall at home. The patient was here in the ER last night and was found to have pyelonephritis and she was given 2 grams of Rocephin and patient wanted to be discharged and she was discharged on cefdinir 300 mg twice daily for 10 days. After going home, today she lost balance and fell at home, hit at the back of her head and came back with complaints of pain in the back of the head and pain in the coccyx region. The patient was febrile, tachycardic. Point of lactic acid was 1.8. CAT scan imaging studies show CT head was unremarkable, but CT of abdomen and pelvis shows slight left-sided nephrogram with perinephric infiltration. This is most often seen in pyelonephritis and ureteral obstruction. Clinical correlation is advised. Urology was contacted by ER physician, and they are going to come and evaluate the patient. Currently, patient is resting comfortably. She has headaches, no blurred vision, no earache, no runny nose, no sore throat, no difficulty swallowing. Appetite is okay. No chest pain. She has some shortness of breath and some dry cough. She states she still smokes. No nausea, no vomiting, no abdominal pain. No hematuria. Denies any burning micturition. No diarrhea or constipation, no blood in the stools or black stools. No swelling in the legs, no rash. ALLERGIES: No known drug allergies. PAST MEDICAL HISTORY: As mentioned above. PAST SURGICAL HISTORY: Bilateral knee arthroplasty, total abdominal hysterectomy with removal of the tubes. MEDICATIONS: The patient is on PreserVision AREDS 1 capsule daily, meclizine 25 mg p.o. t.i.d. p.r.n., gabapentin 200 mg p.o. b.i.d., metformin 1000 mg b.i.d., Tessalon Perles 100 mg p.o. t.i.d. p.r.n., metoprolol 25 mg p.o. b.i.d., Coumadin 5 mg as directed, Prilosec 20 mg p.o. b.i.d., levocetirizine 5 mg p.o. evening, Singulair 10 mg p.o. daily, DuoNeb 3 mL via nebulization 4 times a day p.r.n., Lasix 20 mg p.o. daily as needed, MiraLax 17 grams p.o. daily p.r.n., Tylenol extra strength every 8 hours p.r.n. FAMILY HISTORY: Significant for mother has arthritis, heart disorder, hypertension. Daughter has arthritis. Sister has arthritis. SOCIAL HISTORY: Currently living with her daughter. Ambulates without any help. Smokes about a pack a day for last 53 years. Alcohol on occasions. No drug use. REVIEW OF SYMPTOMS: As per HPI. Rest of the review of systems is negative. PHYSICAL EXAMINATION: GENERAL: The patient is alert and oriented. The patient is obese, not in acute distress. VITAL SIGNS: T-max 39.1, pulse in the 120s, respiratory rate 20, blood pressure 118/86, oxygen 93% on room air. HEENT: No pallor, no icterus. Pupils equal, round, and reactive to light. NECK: No JVD, no neck masses, no carotid bruits. CARDIOVASCULAR: S1, S2 heard. Tachycardia. No murmurs. RESPIRATORY SYSTEM: Normal AP diameter. No accessory muscle use. Occasional wheezing, no crackles. ABDOMEN: Soft, bowel sounds present, nontender. No distention. No CVA tenderness. CENTRAL NERVOUS SYSTEM: Cranial nerves II-XII grossly intact, nonfocal. EXTREMITIES: No edema, no erythema. LABORATORY DATA: WBC 8.7, hemoglobin 14.3, hematocrit 40.8, platelets 162. Sodium 137, potassium 3.6, chloride 105, bicarbonate 23, BUN 13, creatinine 1.1, serum glucose 187. Point of lactic acid 1.8, calcium 9.1, total bilirubin 0.7, AST 21, ALT 32, alkaline phosphatase 98. Troponin I less than 0.015. Lipase 70. Urinalysis positive for leukocyte esterase. IMAGING: CT of the head, mild compromised state of motion artifact versus scalp contusion. No acute intracranial findings. Cervical spine CT, no evidence of acute fracture or traumatic subluxation, stable multinodular thyroid gland. CT abdomen and pelvis, no evidence of bowel obstruction, no evidence of free air, severe hepatic steatosis, bilateral nephrolithiasis, striated left side nephrogram with perinephric infiltration. These are most often seen with pyelonephritis and ureteral obstruction. Left pelvic basin calcification vascular versus ureteral calculi without significant hydronephrosis. Chest x- ray, no significant change from prior study. EKG: Sinus tachycardia with rate of 133 and incomplete right branch block, no acute ST changes seen. ASSESSMENT AND PLAN: This is a 67-year-old female who presents with pyelonephritis and sepsis. 1. Pyelonephritis and sepsis.Bacteremia. Meets criteria for sepsis with tachycardia, fever spike, positive urinalysis and pyelonephritis. Point of lactic acid is 1.86. The patient was in ER last night and treated with Rocephin and discharged home on cefdinir, comes back due a fall and presented with sepsis. CAT scan showing pyelonephritis with questionable obstruction on left side. Discussed with Urology, and they do not think there is an obstruction, but they are going to come and evaluate the patient. The patient got aggressive fluids in the ER. We will continue IV normal saline 150 mL per hour, IV cefepime. Blood cultures drawn last night growing gram negative bacilli. Continue cefepime for now and await full culture. Closely monitor in the tele floor and await Urology input. 2. Diabetes. Hold metformin, place insulin sliding scale. Follow hemoglobin A1c levels. 3. History of tobacco abuse, chronic obstructive pulmonary disease: Nebs p.r.n. 4. History of bilateral pulmonary embolism, on Coumadin. INR was 2.1 when drawn today morning. We will follow the PT/INR. 5. Gastroesophageal reflux disease, on PPI. 6. Hypertension. Lopressor with holding parameter. 7. Moderate obesity, needs counseling. 8. Deep venous thrombosis prophylaxis, on Coumadin. INR therapeutic. DISPOSITION: Admit to tele floor. Expect to discharge home and follow with family doctor. Level 1 full code. MTDD
[2018-09-17] MEDS: CEFEPIME 1,000 MG in SYRINGE 0 ML IV SCH (22:13)
[2018-09-18] MEDS ORDERED: COUGH DROP (SUGAR FREE) LOZ 24 LOZ/1 BOX BUCCAL PRN (02:30)
[2018-09-18] MEDS: ACETAMINOPHEN 325 MG TAB PO PRN ×3 (03:49→16:52)
[2018-09-18] MEDS: SODIUM CHLORIDE 0.9% 1000ML 1,000 ML IV SCH ×2 (04:29→11:15)
[2018-09-18 05:35] LABS: Basophils # (auto) 0.03 K/uL (0-0.2); Basophils % (auto) 0.4 %; Eosinophils # (auto) 0.02 K/uL (0-0.5); Eosinophils % (auto) 0.3 %; Hematocrit (blood only) 36.3 % (37-47); Hemoglobin 12.3 g/dL (12.0-16.0); Immature Granulocytes # (auto) 0.01 K/uL (0.00-0.02); Immature Granulocytes % (auto) 0.1 %; Lymphocytes # (auto) 1.66 K/uL (1.2-3.4); Lymphocytes % (auto) 24.4 %; Mean Corpuscular Hemoglobin 32.2 pg (25-34); Mean Corpuscular Hgb Conc 33.9 g/dL (32-36); Mean Platelet Volume 9.5 fL (7.4-10.4); Monocytes # (auto) 0.55 K/uL (0.11-0.59); Monocytes % (auto) 8.1 %; Neutrophils # (auto) 4.52 K/uL (1.4-6.5); Neutrophils % (auto) 66.7 %; Platelet Count 124 K/uL (130-400); RDW Coefficient of Variation 14.4 % (11.5-14.5); RDW Standard Deviation 49.6 fL (36.4-46.3); Red Blood Count 3.82 M/uL (4.2-5.4); White Blood Count 6.79 K/uL (4.8-10.8)
[2018-09-18 05:44] LABS: INR 1.5 (0.9-1.1); Prothrombin Time 14.8 Seconds (9.0-12.0)
[2018-09-18 06:01] LABS: BUN Creatinine Ratio 10.7 (10-20); Calcium 7.9 mg/dl (8.5-10.1); Creatinine Clr Calc Pharmacy 94.6 ml/min; Est GFR (Non-African American) 69.9; Magnesium 1.7 mg/dl (1.8-2.4); Potassium 3.4 mmol/L (3.5-5.1)
[2018-09-18] MEDS ORDERED: POTASSIUM CHLORIDE 20 MEQ TABCR PO STA ×2 (06:29→07:25)
[2018-09-18] MEDS ORDERED: MAGNESIUM SULFATE / D5W 1 GM/100 ML BAG IV ONE ×2 (06:30→07:25)
[2018-09-18] MEDS: GABAPENTIN 100 MG CAP PO SCH ×2 (07:43→21:18)
[2018-09-18] MEDS: PANTOprazole 40 MG TAB PO SCH ×2 (07:43→21:19)
[2018-09-18] MEDS: METOPROLOL TARTRATE 25 MG TAB PO SCH ×2 (07:43→21:15)
[2018-09-18 08:10] LABS: Estimated Average Glucose 174 mg/dl; Hemoglobin A1C 7.7 % (4.5-5.6)
[2018-09-18] MEDS: INSULIN ASPART 100 UNITS/ML 3 ML PEN SC SCH ×4 (08:16→21:20)
[2018-09-18] MEDS: CEFEPIME 1,000 MG in SYRINGE 0 ML IV SCH (09:43)
[2018-09-18] MEDS ORDERED: Nursing to Pharmacy Communication ONE (15:31)
[2018-09-18] MEDS ORDERED: LACTATED RINGER'S 500 ML IV SCH (15:45)
[2018-09-18] MEDS ORDERED: LACTATED RINGER'S 1,000 ML IV SCH (16:00)
--- NOTE | 2018-09-18 16:47 | Hospitalist Progress Note ---
Date of Service September 18, 2018 Assessment & Plan (1) Sepsis: presented with sepsis meets criteria , fever , tachycardia , elevated lactic acid level source of infection : UTI urine culture : E coli blood cultures : gram negative bacteremia ( possible source UTI ) vitals improved , resolution of tachycardia /with normalization of lactic acid - with IV hydration , broad spectrum Abx cont IV Cefepime repeat blood cultures ordered ID eval requested (2) Fever: due to UTI /sepsis resolved since admission cont Iv abx and supportive care (3) Confusion: metabolic encephalopahty due to infection /sepsis /dehydration lead to generalized weakness -fall mental status improved after IV hydration , IV abx at present pt at baseline , conversing appropriately ordered for PT/OT (4) Tachycardia: sinus tachycardia due to sepsis /dehydration , febrile response resolved with IV abx and IV fluid vitals stable no complain of palpitation /SOB or dizzy spell (5) History of DVT of lower extremity: cont Coumadin (6) History of pulmonary embolism: cont Coumadin 'daily INR check goal 2-3 (7) COPD (chronic obstructive pulmonary disease): hx of rn long term care tobacco use still smoking has dry non productive cough ( chronic ) no audible wheeze or resp distress cont PRN Neb/INH smoking cessation counselling (8) Hypertension: BP stable cont to monitor (9) UTI (urinary tract infection), bacterial: urine culture E coli cont IV cefepime till sensitivity available CT abdomen /pelvis : Kidneys: There is a 16 mm right renal cortical cyst. There is a nonobstructing 2 mm left renal calculus. There is a punctate nonobstructing right renal calculus. There is a striated left-sided nephrogram. There is left-sided perinephric stranding. A striated nephrogram is most often seen in acute ureteral obstruction and pyelonephritis. Renal vein thrombosis and renal contusion can also demonstrate this pattern. There are several small calcifications within the pelvis in close proximity to the left ureter. Although vascular calcifications are favored, a distal ureteral calculus cannot be excluded with certainty. If further workup is deemed clinically necessary, a CT urogram could be obtained in follow-up in attempt to opacify the ureter and determine whether these calcifications or ureteral or extra ureteral. appreciate input from Urology no evidence of obstructed ureteric stone no urologic procedure needed d recommends IV abx and IVF tx FULL CODE THROMBOCYTOPENIA : platelet count boderline low due to sepsis follow CBC avoid antiplatelets DVT PROPHYLAXIS : on coumadin DISPOSITION : lives at home with daughter was independent with ADL's ordered for PT/OT social service cosnulted for discharge planning Subjective feels much better this morning no complain dizzy spell or lightheadedness remains afebrile vitals stable appetite improved , no N/V no complain of flank pain , denies of any urinary symoptom Physical Exam Constitutional: WD/WN, vitals as above + obese; no acute distress Eyes: PERRL, conjunctivae normal, anicteric sclerae ENMT: external ear and nose normal, oropharynx normal Neck: trachea midline, no thyromegaly Respiratory: normal respiratory effort, lungs clear to auscultation Cardiovascular: RRR, no murmur, no edema Gastrointestinal (Abdomen): normal bowel sounds, soft, nontender, no hepatosplenomegaly Percussion/Palpation: abdomen soft; abdomen nontender (no CVA tendedrness) Musculoskeletal: no cyanosis or clubbing, extremities motor strength 5/5 Skin: no rashes, warm and dry Neurologic: PERRL, EOMI, accommodation nl, no face palsy, no dysarthria Psychiatric: A+Ox3, euthymic affect Results & Data Vital Signs (Past 12 Hours) Vital Signs Temp Pulse Pulse Pulse Resp BP BP 09/18/18 15:16 36.5 C 57 L 17 123/74 09/18/18 15:15 36.7 C 75 16 136/82 09/18/18 12:30 36.7 C 78 16 143/83 H 09/18/18 08:00 88 09/18/18 07:10 37.0 C 91 H 18 133/75 Pulse Ox 09/18/18 15:16 94 09/18/18 15:15 93 09/18/18 12:30 92 09/18/18 08:00 09/18/18 07:10 92 (1) Fever Fever type: unspecified Qualified Code(s): R50.9 - Fever, unspecified (2) Sepsis Sepsis type: sepsis due to unspecified organism Qualified Code(s): A41.9 - Sepsis, unspecified organism
[2018-09-18] MEDS: WARFARIN SOD 5 MG TAB PO SCH (16:48)
[2018-09-18] MEDS: MONTELUKAST SODIUM 10 MG TABLET PO SCH (21:18)
[2018-09-18] MEDS: CEFEPIME 2,000 MG in SYRINGE 7.5 ML IV SCH (21:24)
[2018-09-19] MEDS: ACETAMINOPHEN 325 MG TAB PO PRN (06:34)
[2018-09-19 07:38] LABS: Hematocrit (blood only) 35.8 % (37-47); Hemoglobin 12.1 g/dL (12.0-16.0); Mean Corpuscular Hemoglobin 31.3 pg (25-34); Mean Corpuscular Hgb Conc 33.8 g/dL (32-36); Mean Corpuscular Volume 92.5 fL (80-100); Mean Platelet Volume 10.1 fL (7.4-10.4); Platelet Count 129 K/uL (130-400); RDW Coefficient of Variation 14.2 % (11.5-14.5); Red Blood Count 3.87 M/uL (4.2-5.4); White Blood Count 5.41 K/uL (4.8-10.8)
[2018-09-19 07:59] LABS: INR 1.8 (0.9-1.1)
[2018-09-19 08:13] LABS: BUN Creatinine Ratio 11.2 (10-20); Calcium 8.7 mg/dl (8.5-10.1); Creatinine Clr Calc Pharmacy 100.4 ml/min; Est GFR (African American) 87.1; Est GFR (Non-African American) 75.2; Magnesium 2.2 mg/dl (1.8-2.4); Potassium 3.5 mmol/L (3.5-5.1)
[2018-09-19] MEDS: METOPROLOL TARTRATE 25 MG TAB PO SCH ×2 (08:50→20:44)
[2018-09-19] MEDS: GABAPENTIN 100 MG CAP PO SCH ×2 (08:50→20:44)
[2018-09-19] MEDS: CEFEPIME 2,000 MG in SYRINGE 7.5 ML IV SCH (08:50)
[2018-09-19] MEDS: PANTOprazole 40 MG TAB PO SCH ×2 (08:51→20:44)
[2018-09-19] MEDS: INSULIN ASPART 100 UNITS/ML 3 ML PEN SC SCH ×6 (08:53→21:38)
--- NOTE | 2018-09-19 10:09 | Infectious Disease Consult ---
Date of Consultation September 19, 2018 Assessment & Plan (1) E coli bacteremia: Patient with E. coli bacteremia in the setting of acute pyelonephritis with nephrolithiasis without obvious obstruction. Responding to antibiotics. Will change to IV ceftriaxone 2 g daily, will likely only require another day or 2 of IV antibiotics before transitioning to oral therapy, likely with cefdinir. Will follow. (2) Pyelonephritis: History of Present Illness Reason for Consultation: Gram-negative bacteremia Attending Physician: Veronica Rader DO History of Present Illness 67-year-old female with history of COPD, pulmonary embolism, DVT, type 2 diabetes mellitus, morbid obesity, who states that for the past month or so she has been dealing with persistent urinary tract infections, responding to antibiotics but quickly recurring after discontinuation. She is now admitted after suffering a fall, was seen recently in the emergency room and diagnosed with urinary tract infection and given oral antibiotic which she never was able to take first dose. She has now been found to have positive blood cultures for E. coli, and urine culture growing E. coli as well. Abdominal CT T shows nephrolithiasis, but no obvious obstruction, and there is evidence of left pyelonephritis. Patient feeling somewhat better today, memory still somewhat fuzzy, but left flank pain has resolved. Currently afebrile. Tolerating antibiotics without apparent difficulty. Allergies Allergy/AdvReac Type Severity Reaction Status Date / Time No Known Allergies Allergy Verified 09/17/18 17:09 Home Medications Home Medications Medication Instructions Recorded Confirmed Type gabapentin 200 mg PO BID 01/21/18 09/17/18 History levocetirizine 5 mg PO DAILY PRN 01/21/18 09/17/18 History metformin 1,000 mg PO BID 01/21/18 09/17/18 History metoprolol tartrate 25 mg PO BID 01/21/18 09/17/18 History montelukast 10 mg PO HS 01/21/18 09/17/18 History omeprazole 20 mg PO BID 01/21/18 09/17/18 History warfarin 5 mg PO 5XWK 01/21/18 09/17/18 History warfarin 7.5 mg PO 2XWK 01/21/18 09/17/18 History PreserVision AREDS-2 1 cap PO DAILY 09/17/18 09/17/18 History cefdinir 300 mg PO BID 10 Days #20 cap 09/17/18 09/17/18 Rx furosemide [Lasix] 20 mg PO DAILY PRN 09/17/18 09/17/18 History ipratropium-albuterol 3 ml INHALATION Q4H PRN 09/17/18 09/17/18 History Patient History Medical History Hypertension (Chronic) GERD (gastroesophageal reflux disease) (Chronic) COPD (chronic obstructive pulmonary disease) (Chronic) History of pulmonary embolism (Chronic) History of DVT of lower extremity (Chronic) Diabetes mellitus, type 2 (Chronic) Pulmonary hypertension (Chronic) Thyroid nodule (Chronic) "CT chest 05/18/17" Obesity, morbid (Chronic) Surgical History H/O total knee replacement (Chronic) Family History Other No known health problems No significant family history Social History Preferred Language: Icelandic Communication Ability: Effective Signals Intelligence Analyst Required: No Beliefs That Will Affect Care: None Current Living Situation: Family Current Living Situation Comment: lives w/ dtr Other Information That Helps Us Care for You: No Feels Safe at Home: Yes Safety Concerns: Feels Safe At This Time Smoking Status: Current every day smoker Tobacco Type: cigarettes Cigarettes Per Day: 4-5/day Do You Dip or Chew Tobacco: No Second Hand Exposure: Yes Tobacco Cessation Education Requested by Patient: No Hx Alcohol Use: No Hx Substance Use: No Review of Systems Review of Systems: All systems reviewed & are unremarkable except as noted in HPI & below Physical Exam Constitutional: WD/WN, vitals as above + obese and comfortable; no acute distress Eyes: PERRL, conjunctivae normal, anicteric sclerae ENMT: external ear and nose normal, oropharynx normal Neck: trachea midline, no thyromegaly neck nontender Respiratory: normal respiratory effort, lungs clear to auscultation normal percussion; does not use accessory muscles Cardiovascular: Rate/Rhythm: regular rate and regular rhythm Heart Sounds: normal S1 and normal S2; no gallop, no murmur and no cardiac rub Vessels: normal peripheral pulses; no JVD Gastrointestinal (Abdomen): Inspection/Auscultation: abdomen normal to inspection and normal bowel sounds Percussion/Palpation: + abdomen tender (Minimal left flank) and abdomen soft; no hepatosplenomegaly and no abdominal m ass Musculoskeletal: no cyanosis or clubbing, extremities motor strength 5/5 Spine: thoracic spine normal to inspection and lumbar spine normal to inspection; no cervical spinal tenderness Skin: no rashes, warm and dry normal turgor; no lesions Neurologic: patellar DTR's 2+ bilat, sensation intact no focal motor deficits Psychiatric: A+Ox3, euthymic affect Orientation: cooperative Lymphatic: no cervical or axillary lymphadenopathy no inguinal lymphadenopathy Results & Data Vital Signs (Past 12 Hours) Vital Signs Temp Pulse Resp BP Pulse Ox 09/19/18 07:15 37.1 C 77 16 117/73 93 09/18/18 23:36 37.0 C 69 16 150/78 H 94 Laboratory Results Short CBC 09/19/18 Range/Units 07:11 WBC 5.41 (4.8-10.8) K/uL Hgb 12.1 (12.0-16.0) g/dL Hct 35.8 L (37-47) % Plt Count 129 L (130-400) K/uL BMP 09/19/18 07:11 Sodium 138 Potassium 3.5 Chloride 106 Carbon Dioxide 25 BUN 9 Creatinine 0.81 Glucose 119 H Calcium 8.7 Diagnostic Findings Microbiology 09/17/18 16:43 Blood Aerobic Blood Culture - Preliminary No growth in Aerobic bottle after 24 hours. 09/17/18 16:43 Blood Anaerobic Blood Culture - Preliminary No growth in Anaerobic bottle after 24 hours. 09/17/18 17:50 Blood Aerobic Blood Culture - Preliminary No growth in Aerobic bottle after 24 hours. 09/17/18 17:50 Blood Anaerobic Blood Culture - Preliminary No growth in Anaerobic bottle after 24 hours. cc: ~ CT SCAN OF THE ABDOMEN AND PELVIS WITHOUT CONTRAST CLINICAL HISTORY: Midabdominal pain. History of trauma. Left renal calculus. Possible sepsis. COMPARISON STUDY: 09/17/2018, 2:05 AM TECHNIQUE: CT scan of the abdomen and pelvis was performed from the lung bases to the proximal femurs. Images are reviewed in the axial, sagittal, and coronal planes. IV contrast was not administered for this examination. A dose lowering technique was utilized adhering to the principles of ALARA. CT DOSE: FINDINGS: Lower chest: There are mild dependent atelectatic changes. Liver: There is severe hepatic steatosis. No focal masses are visualized. Gallbladder: There is vicarious excretion within the gallbladder. Spleen: Borderline enlarged measuring 12.2 cm Pancreas: Unremarkable. Adrenal glands: Unremarkable. Kidneys: There is a 16 mm right renal cortical cyst. There is a nonobstructing 2 mm left renal calculus. There is a punctate nonobstructing right renal calculus. There is a striated left-sided nephrogram. There is left-sided perinephric stranding. A striated nephrogram is most often seen in acute ureteral obstruction and pyelonephritis. Renal vein thrombosis and renal contusion can also demonstrate this pattern. There are several small calcifications within the pelvis in close proximity to the left ureter. Although vascular calcifications are favored, a distal ureteral calculus cannot be excluded with certainty. If further workup is deemed clinically necessary, a CT urogram could be obtained in follow-up in attempt to opacify the ureter and determine whether these calcifications or ureteral or extra ureteral. Bowel: There are no transition zones to indicate bowel obstruction. There is no acute diverticulitis. The appendix is not visualized with certainty. There are no findings to indicate acute appendicitis. Peritoneum: There is no intraperitoneal free air or abdominal ascites. Vasculature: Atheromatous calcifications are present within the aorta and iliac vessels. There is no aneurysm Adenopathy: None. Pelvic viscera: The uterus is surgically absent Skeletal structures: No destructive osseous lesions are seen. IMPRESSION: 1. No evidence of bowel obstruction. No evidence of free air 2. Severe hepatic steatosis 3. Bilateral nephrolithiasis 4. Striated left-sided nephrogram with perinephric infiltration. This is most often seen in pyelonephritis and ureteral obstruction. Clinical correlation in this regard is advocated. 5. Left pelvic basin calcifications, vascular versus ureteral calculi without significant hydronephrosis Electronically signed by: Karan Mancilla M.D. 09/17/2018 6:13 PM
--- NOTE | 2018-09-19 10:22 | Hospitalist Progress Note ---
Date of Service September 19, 2018 Assessment & Plan (1) E coli bacteremia: cont Cefepime. Appreciate ID recs. Pt has Omnicef at home from recent fill, and would prefer to use these if PO medication indicated. (2) Pyelonephritis: Acute pyelonephritis. No surgical indication per Urology. Cont Cefepime and await ID recs regarding antibiotics. Resuscitated and improved, but still with some diaphoresis and not reliably tolerating PO. 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 She is improved, but would want her to continue to improve one more day at least if possible. Will await ID recs and decide later today. (3) Sepsis: resuscitated. Etiology above. (4) Diabetes mellitus, type 2: Metformin held. ISS with carb coverage. Glucose controlled. (5) History of pulmonary embolism: Lungs have been clear of thrombus for the past 4 months--CTA in May and August both without evidence of PE on them. Cont coumadin and defer to PCP to continue coumadin as outpatient. Daily INR while hospitalized. (6) DVT prophylaxis: Coumadin Full Dispo-pending ID recs. I would prefer she stay until she is eating reliably and doing well on any oral antibiotic regimen, however, she is concerned about her mom and may need to leave today. Veronica Rader DO [facility] Hospitalist Subjective 67 yo F with acute pyelonephritis presented to the ER with L flank pain, was given Rocephin and was sent home. She fell at home and hit her head while on coumadin, and returned. She has some persistent pain in her scalp today, but is otherwise feeling better overall denying flank pain fevers or chills. She has an outpatient Urology appointment with Dr. Tran tomorrow regarding frequent UTIs. 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 She is not reliably eating PO today and reports waking up drenched in sweats this morning. She denies abdominal pain, acute shortness of breath, or chest pain or other issues. She reports ambulating at her baseline without lightheadedness. Review of Systems Review of Systems: All systems reviewed & are unremarkable except as noted in HPI & below Physical Exam Physical Exam: CONSTITUTIONAL: WNWD, vitals as above, generally well- appearing, hair is wet posteriorly but there is no diaphoresis currently EYES: normal conjunctivae, no scleral icterus ENT: MMM NECK: trachea midline, no lymphadenopathy RESPIRATORY: clear to auscultation bilaterally, no crackles, rales or wheezes, normal respiratory effort CARDIOVASCULAR: regular rate and rhythm, S1 and 2 heard without murmurs, gallops or rubs, no JVD, no peripheral edema GASTROINTESTINAL: normal bowel sounds, soft, nontender, nondistended, no CVA tenderness. MUSCULOSKELETAL: strength 5/5 throughout, no gross focal deficits. SKIN: warm and dry NEUROLOGIC: CN 2-12 grossly intact, normal cognition, no gross focal deficits. PSYCHIATRIC: alert cooperative and oriented to person, place and time. Results & Data Vital Signs (Past 12 Hours) Vital Signs Temp Pulse Resp BP Pulse Ox 09/19/18 07:15 37.1 C 77 16 117/73 93 09/18/18 23:36 37.0 C 69 16 150/78 H 94 Laboratory Results Short CBC 09/19/18 Range/Units 07:11 WBC 5.41 (4.8-10.8) K/uL Hgb 12.1 (12.0-16.0) g/dL Hct 35.8 L (37-47) % Plt Count 129 L (130-400) K/uL BMP 09/19/18 07:11 Sodium 138 Potassium 3.5 Chloride 106 Carbon Dioxide 25 BUN 9 Creatinine 0.81 Glucose 119 H Calcium 8.7 Medications Administered Current Inpatient Medications Acetaminophen (Tylenol) 650 mg PO Q4H PRN PRN Reason: Pain or Fever Stop: 10/17/18 20:25 Last Admin: 09/19/18 06:34 Dose: 650 mg Documented by: Albuterol (Duoneb) 3 ml INH Q4H PRN PRN Reason: Shortness Of Breath Or Wheezin Furosemide (Lasix) 20 mg PO DAILY PRN PRN Reason: Edema Stop: 10/17/18 20:25 Gabapentin (Neurontin) 200 mg PO BID [facility] Stop: 10/17/18 20:59 Last Admin: 09/19/18 08:50 Dose: 200 mg Documented by: Cefepime HCl 2,000 mg/ Syringe 20 mls @ 5 mls/min IV Q12H [facility]; Protocol Stop: 09/28/18 14:59 Last Admin: 09/19/18 08:50 Dose: 5 mls/min Documented by: Insulin Aspart (Novolog Flexpen) 0 units SC ACHS [facility] Stop: 10/17/18 20:59 Last Admin: 09/19/18 08:53 Dose: 2 units Documented by: Menthol (Nice) 1 mary BUCCAL PRN PRN PRN Reason: Sore Throat Stop: 10/18/18 02:29 Metoprolol Tartrate (Lopressor) 25 mg PO BID [facility] Stop: 10/17/18 20:59 Last Admin: 09/19/18 08:50 Dose: 25 mg Documented by: Miscellaneous Information (Cefepime Consult Active) 1 ea N/A UD PRN PRN Reason: Consult Stop: 10/17/18 20:39 Montelukast Sodium (Singulair) 10 mg PO HS [facility] Stop: 10/17/18 20:59 Last Admin: 09/18/18 21:18 Dose: 10 mg Documented by: Nitroglycerin (Nitrostat) 0.4 mg SL UD PRN PRN Reason: Chest Pain Stop: 10/17/18 20:25 Ondansetron HCl (Zofran) 4 mg IV Q6H PRN PRN Reason: Nausea Stop: 10/17/18 20:25 Pantoprazole Sodium (Protonix) 40 mg PO BID [facility] Stop: 10/17/18 20:59 Last Admin: 09/19/18 08:51 Dose: 40 mg Documented by: Warfarin Sodium (Coumadin) 5 mg PO SuTuWeThSa@1600 [facility] Stop: 10/18/18 15:59 Last Admin: 09/18/18 16:48 Dose: 5 mg Documented by: Warfarin Sodium (Coumadin) 7.5 mg PO MoFr@1600 [facility] Stop: 10/17/18 15:59 Last Admin: 09/17/18 22:45 Dose: 7.5 mg Documented by: (1) Sepsis Sepsis type: sepsis due to unspecified organism Qualified Code(s): A41.9 - Sepsis, unspecified organism
[2018-09-19] MEDS ORDERED: GLUCAGON FOR INJ 1 MG VIAL IM PRN (14:45)
[2018-09-19] MEDS ORDERED: GLUCOSE 40% GEL 15 GM TUBE PO PRN (14:45)
[2018-09-19] MEDS ORDERED: DEXTROSE 50% 50 ML SYRINGE IV PRN (14:45)
[2018-09-19] MEDS ORDERED: GLUCOSE 10 TABS/TUBE PO PRN (14:45)
[2018-09-19] MEDS ORDERED: CARBOHYDRATES FOR HYPOGLYCEMIA PO PRN (14:45)
[2018-09-19] MEDS: cefTRIAXone SODIUM 2,000 MG in DEXTROSE 5% 50 ML IV SCH (16:00)
[2018-09-19] MEDS: WARFARIN SOD 5 MG TAB PO SCH (16:26)
[2018-09-19] MEDS: MONTELUKAST SODIUM 10 MG TABLET PO SCH (20:44)
[2018-09-20 07:24] LABS: Hematocrit (blood only) 36.3 % (37-47); Hemoglobin 12.1 g/dL (12.0-16.0); Mean Corpuscular Hemoglobin 31.2 pg (25-34); Mean Corpuscular Hgb Conc 33.3 g/dL (32-36); Mean Corpuscular Volume 93.6 fL (80-100); Platelet Count 145 K/uL (130-400); RDW Coefficient of Variation 14.1 % (11.5-14.5); Red Blood Count 3.88 M/uL (4.2-5.4); White Blood Count 5.36 K/uL (4.8-10.8)
[2018-09-20 07:32] LABS: Prothrombin Time 19.9 Seconds (9.0-12.0)
[2018-09-20 07:50] LABS: BUN Creatinine Ratio 12.2 (10-20); Calcium 8.6 mg/dl (8.5-10.1); Creatinine Clr Calc Pharmacy 89.4 ml/min; Est GFR (African American) 75.7; Est GFR (Non-African American) 65.3; Potassium 3.6 mmol/L (3.5-5.1)
[2018-09-20] MEDS: METOPROLOL TARTRATE 25 MG TAB PO SCH ×2 (08:50→21:16)
[2018-09-20] MEDS: PANTOprazole 40 MG TAB PO SCH ×2 (08:50→21:15)
[2018-09-20] MEDS: INSULIN ASPART 100 UNITS/ML 3 ML PEN SC SCH ×4 (08:51→21:17)
[2018-09-20] MEDS: GABAPENTIN 100 MG CAP PO SCH ×2 (08:51→21:15)
--- NOTE | 2018-09-20 11:26 | Hospitalist Progress Note ---
Date of Service September 20, 2018 Assessment & Plan (1) E coli bacteremia: Afebrile overnight and remains clinically stable without fevers or chills or return of symptoms in the last 48 hours. Cont Rocephin 2gm. Appreciate ID recs for the earliest she can transition to PO. Pt has Omnicef at home from recent fill, and would prefer to use these if PO medication indicated. (2) Pyelonephritis: Acute pyelonephritis-imporved on abx. No surgical indication per Urology. Cont Rocephin (3) Sepsis: resuscitated. Etiology above. (4) Diabetes mellitus, type 2: Metformin held. ISS with carb coverage. Glucose controlled. (5) History of pulmonary embolism: Lungs have been clear of thrombus for the past 4 months--CTA in May and August both without evidence of PE on them. Cont coumadin and defer to PCP to continue coumadin as outpatient. Daily INR while hospitalized. (6) DVT prophylaxis: Coumadin Full Dispo-pending ID recs. Veronica Rader DO [facility] Hospitalist Subjective Eager to get home as worried about her mother who is on Hospice and her daughter. Somewhat tearful but understands why she is here. Denies any flank pain, suprapubic tenderness or UTI symptoms. Denies fevers or chills overnight Doing well after changing to ceftriaxone 2gm IV daily yesterday. Ambulating well in hallway per nursing staff. Tolerating PO Review of Systems Review of Systems: All systems reviewed & are unremarkable except as noted in HPI & below Physical Exam Physical Exam: CONSTITUTIONAL: WNWD, vitals as above, generally well- appearing HEAD: Trauma to posterior scalp with golf-ball sized area of erythema and TTP- no open wound present. EYES: normal conjunctivae, no scleral icterus ENT: MMM NECK: trachea midline, no lymphadenopathy RESPIRATORY: clear to auscultation bilaterally, no crackles, rales or wheezes, normal respiratory effort CARDIOVASCULAR: regular rate and rhythm, S1 and 2 heard without murmurs, gallops or rubs, no JVD, no peripheral edema GASTROINTESTINAL: normal bowel sounds, soft, nontender, nondistended, no CVA tenderness. MUSCULOSKELETAL: strength 5/5 throughout, no gross focal deficits. SKIN: warm and dry NEUROLOGIC: CN 2-12 grossly intact, normal cognition, no gross focal deficits. PSYCHIATRIC: alert cooperative and oriented to person, place and time. Results & Data Vital Signs (Past 12 Hours) Vital Signs Temp Pulse Resp BP Pulse Ox 09/20/18 07:18 37.0 C 75 20 129/77 95 09/19/18 23:43 36.8 C 60 18 125/73 94 Laboratory Results Short CBC 09/20/18 Range/Units 07:03 WBC 5.36 (4.8-10.8) K/uL Hgb 12.1 (12.0-16.0) g/dL Hct 36.3 L (37-47) % Plt Count 145 (130-400) K/uL BMP 09/20/18 07:03 Sodium 140 Potassium 3.6 Chloride 107 Carbon Dioxide 27 BUN 11 Creatinine 0.91 Glucose 120 H Calcium 8.6 Medications Administered Current Inpatient Medications Acetaminophen (Tylenol) 650 mg PO Q4H PRN PRN Reason: Pain or Fever Stop: 10/17/18 20:25 Last Admin: 09/19/18 06:34 Dose: 650 mg Documented by: Albuterol (Duoneb) 3 ml INH Q4H PRN PRN Reason: Shortness Of Breath Or Wheezin Dextrose (Dextrose 50%) 25 - 50 ml IV UD PRN; Protocol PRN Reason: Hypoglycemia Protocol Stop: 10/19/18 14:44 Furosemide (Lasix) 20 mg PO DAILY PRN PRN Reason: Edema Stop: 10/17/18 20:25 Gabapentin (Neurontin) 200 mg PO BID [facility] Stop: 10/17/18 20:59 Last Admin: 09/20/18 08:51 Dose: 200 mg Documented by: Glucagon (Glucagen) 1 mg IM UD PRN; Protocol PRN Reason: Hypoglycemia Protocol Stop: 10/19/18 14:44 Glucose (Glucose 40%) 15 - 30 gm PO UD PRN; Protocol PRN Reason: Hypoglycemia Protocol Stop: 10/19/18 14:44 Glucose (Dex4 Glucose) 4 - 8 tabs PO UD PRN; Protocol PRN Reason: Hypoglycemia Protocol Stop: 10/19/18 14:44 Ceftriaxone Sodium 2,000 mg/ (Dextrose) 70 mls @ 100 mls/hr IV Q24H [facility]; Protocol Stop: 10/03/18 14:44 Last Infusion: 09/19/18 16:42 Dose: Infused Documented by: Insulin Aspart (Novolog Flexpen) 0 units SC ACHS [facility] Stop: 10/17/18 20:59 Last Admin: 09/20/18 08:51 Dose: 2 units Documented by: Menthol (Nice) 1 mary BUCCAL PRN PRN PRN Reason: Sore Throat Stop: 10/18/18 02:29 Metoprolol Tartrate (Lopressor) 25 mg PO BID [facility] Stop: 10/17/18 20:59 Last Admin: 09/20/18 08:50 Dose: 25 mg Documented by: Miscellaneous (Carbohydrates For Hypoglycemia) 15 - 30 gm PO UD PRN PRN Reason: Hypoglycemia Treatment Stop: 10/19/18 14:44 Montelukast Sodium (Singulair) 10 mg PO HS [facility] Stop: 10/17/18 20:59 Last Admin: 09/19/18 20:44 Dose: 10 mg Documented by: Nitroglycerin (Nitrostat) 0.4 mg SL UD PRN PRN Reason: Chest Pain Stop: 10/17/18 20:25 Ondansetron HCl (Zofran) 4 mg IV Q6H PRN PRN Reason: Nausea Stop: 10/17/18 20:25 Pantoprazole Sodium (Protonix) 40 mg PO BID [facility] Stop: 10/17/18 20:59 Last Admin: 09/20/18 08:50 Dose: 40 mg Documented by: Warfarin Sodium (Coumadin) 5 mg PO [id number]@1600 [facility] Stop: 10/18/18 15:59 Last Admin: 09/19/18 16:26 Dose: 5 mg Documented by: Warfarin Sodium (Coumadin) 7.5 mg PO MoFr@1600 [facility] Stop: 10/17/18 15:59 Last Admin: 09/17/18 22:45 Dose: 7.5 mg Documented by: (1) Sepsis Sepsis type: sepsis due to unspecified organism Qualified Code(s): A41.9 - Sepsis, unspecified organism
[2018-09-20] MEDS: WARFARIN SOD 5 MG TAB PO SCH (15:46)
[2018-09-20] MEDS: cefTRIAXone SODIUM 2,000 MG in DEXTROSE 5% 50 ML IV SCH (15:46)
--- NOTE | 2018-09-20 17:26 | Infectious Disease Progress Nt ---
Date of Service September 20, 2018 Assessment & Plan (1) E coli bacteremia: Patient with E. coli bacteremia in the setting of acute pyelonephritis with nephrolithiasis without obvious obstruction. Responding to antibiotics. We will continue ceftriaxone today, and reevaluate whether patient can be discharged tomorrow on oral antibiotics. Discussed with hospitalist. Will follow. (2) Pyelonephritis: Subjective Patient seen in follow-up for pyelonephritis and sepsis. Feeling better today, no flank pain. No fever. Tolerating antibiotic without apparent difficulty. Review of Systems Review of Systems: All systems reviewed & are unremarkable except as noted in HPI & below Physical Exam Constitutional: WD/WN, vitals as above + obese and comfortable; no acute distress Eyes: PERRL, conjunctivae normal, anicteric sclerae ENMT: external ear and nose normal, oropharynx normal Neck: trachea midline, no thyromegaly neck nontender Respiratory: normal respiratory effort, lungs clear to auscultation normal percussion; does not use accessory muscles Cardiovascular: Rate/Rhythm: regular rate and regular rhythm Heart Sounds: normal S1 and normal S2; no gallop, no murmur and no cardiac rub Vessels: normal peripheral pulses; no JVD Gastrointestinal (Abdomen): Inspection/Auscultation: abdomen normal to inspection and normal bowel sounds Percussion/Palpation: + abdomen tender (Minimal left flank) and abdomen soft; no hepatosplenomegaly and no abdominal mass Musculoskeletal: no cyanosis or clubbing, extremities motor strength 5/5 Spine: thoracic spine normal to inspection and lumbar spine normal to inspection; no cervical spinal tenderness Skin: no rashes, warm and dry normal turgor; no lesions Neurologic: patellar DTR's 2+ bilat, sensation intact no focal motor deficits Psychiatric: A+Ox3, euthymic affect Orientation: cooperative Lymphatic: no cervical or axillary lymphadenopathy no inguinal lymphade nopathy Results & Data Vital Signs (Past 12 Hours) Vital Signs Temp Pulse Resp BP Pulse Ox 09/20/18 15:20 36.4 C L 70 20 121/81 95 09/20/18 07:18 37.0 C 75 20 129/77 95 PG Care Time/CCT Total # of Minutes Spent Total Time Spent with Patient: Total time spent is greater than 50% in coordination of care (as documented) at patient's floor/unit and/or counseling patient:
[2018-09-20] MEDS: MONTELUKAST SODIUM 10 MG TABLET PO SCH (21:16)
[2018-09-21 07:02] LABS: Hemoglobin 12.6 g/dL (12.0-16.0); Mean Corpuscular Hemoglobin 31.3 pg (25-34); Mean Corpuscular Hgb Conc 34.1 g/dL (32-36); Mean Corpuscular Volume 91.8 fL (80-100); Mean Platelet Volume 9.8 fL (7.4-10.4); Platelet Count 165 K/uL (130-400); RDW Standard Deviation 47.1 fL (36.4-46.3); Red Blood Count 4.03 M/uL (4.2-5.4); White Blood Count 5.19 K/uL (4.8-10.8)
[2018-09-21 07:10] LABS: INR 2.2 (0.9-1.1); Prothrombin Time 20.9 Seconds (9.0-12.0)
[2018-09-21 07:40] LABS: Creatinine Clr Calc Pharmacy 90.4 ml/min; Est GFR (African American) 76.7; Est GFR (Non-African American) 66.2; Potassium 3.8 mmol/L (3.5-5.1)
[2018-09-21] MEDS: METOPROLOL TARTRATE 25 MG TAB PO SCH (08:45)
[2018-09-21] MEDS: PANTOprazole 40 MG TAB PO SCH (08:45)
[2018-09-21] MEDS: INSULIN ASPART 100 UNITS/ML 3 ML PEN SC SCH ×2 (08:46→13:25)
[2018-09-21] MEDS: GABAPENTIN 100 MG CAP PO SCH (08:46)
--- NOTE | 2018-09-21 14:31 | Infectious Disease Progress Nt ---
Date of Service September 21, 2018 Assessment & Plan (1) E coli bacteremia: Patient with E. coli bacteremia in the setting of acute pyelonephritis with nephrolithiasis without obvious obstruction. Responding to antibiotics. Would give dose of ceftriaxone today at 3 PM, then could discharge on oral cefdinir 300 mg bid for 2-4 weeks. Would like to see in f/u in 2 weeks. (2) Pyelonephritis: Subjective Patient seen in follow-up for pyelonephritis and sepsis. Feeling better today, no flank pain. No fever. Tolerating antibiotic without apparent difficulty. F/U blood cultures negative. Review of Systems Review of Systems: All systems reviewed & are unremarkable except as noted in HPI & below Physical Exam Constitutional: WD/WN, vitals as above + obese and comfortable; no acute distress Eyes: PERRL, conjunctivae normal, anicteric sclerae ENMT: external ear and nose normal, oropharynx normal Neck: trachea midline, no thyromegaly neck nontender Respiratory: normal respiratory effort, lungs clear to auscultation normal percussion; does not use accessory muscles Cardiovascular: Rate/Rhythm: regular rate and regular rhythm Heart Sounds: normal S1 and normal S2; no gallop, no murmur and no cardiac rub Vessels: normal peripheral pulses; no JVD Gastrointestinal (Abdomen): normal bowel sounds, soft, nontender, no hepatosplenomegaly Inspection/Auscultation: abdomen normal to inspection Percussion/Palpation: no abdominal mass Musculoskeletal: no cyanosis or clubbing, extremities motor strength 5/5 Spine: thoracic spine normal to inspection and lumbar spine normal to inspection; no cervical spinal tenderness Skin: no rashes, warm and dry normal turgor; no lesions Neurologic: patellar DTR's 2+ bilat, sensation intact no focal motor deficits Psychiatric: A+Ox3, euthymic affect Orientation: cooperative Lymphatic: no cervical or axillary lymphadenopathy no inguinal lymphadenopathy Results & Data Vital Signs (Past 12 Hours) Vital Signs Temp Pulse Resp BP Pulse Ox 09/21/18 07:58 36.9 C 60 16 127/69 92 Laboratory Results Short CBC 09/21/18 Range/Units 06:49 WBC 5.19 (4.8-10.8) K/uL Hgb 12.6 (12.0-16.0) g/dL Hct 37.0 (37-47) % Plt Count 165 (130-400) K/uL BMP 08/02/19 06:49 Sodium 141 Potassium 3.8 Chloride 108 H Carbon Dioxide 27 BUN 14 Creatinine 0.90 Glucose 117 H Calcium 9.0 Diagnostic Findings Microbiology 09/17/18 16:43 Blood Aerobic Blood Culture - Preliminary No growth in Aerobic bottle after 48 hours. 09/17/18 16:43 Blood Anaerobic Blood Culture - Preliminary No growth in Anaerobic bottle after 48 hours. 09/17/18 17:50 Blood Aerobic Blood Culture - Preliminary No growth in Aerobic bottle after 48 hours. 09/17/18 17:50 Blood Anaerobic Blood Culture - Preliminary No growth in Anaerobic bottle after 48 hours. PG Care Time/CCT Total # of Minutes Spent Total Time Spent with Patient: Total time spent is greater than 50% in coordination of care (as documented) at patient's floor/unit and/or counseling patient:
[2018-09-21] MEDS: cefTRIAXone SODIUM 2,000 MG in DEXTROSE 5% 50 ML IV SCH (15:15)
--- NOTE | 2018-09-21 16:19 | Hospitalist Progress Note ---
Date of Service September 21, 2018 Assessment & Plan (1) Sepsis: (2) E coli bacteremia: Blood cx positive for Ecoli Received IV rocephinx 3 days ID on board and recommended to transition to o Cefdinir 300mg BID for 2 to 4 weeks Pt already had a prescription for 10 days course Cefdinir, will give script for an additional 7 days course abx Follow up with ID outpatient in 2 to 4 weeks (3) Pyelonephritis: CT abd/pelvis showed Striated left-sided nephrogram with perinephric infiltration. Urine cx positive for Ecoli Urology on board and no surgical indication On IV rocephin that will transition to oral cefdinir on discharge (4) Diabetes mellitus, type 2: Resume Metformin on discharge Hba1c 7.7 (09/18/18 Continue monitor (5) History of pulmonary embolism: Lungs have been clear of thrombus for the past 4 months--CTA in May and August both without evidence of PE on them. has been on coumadin for over 1 year as per pt Will defer to PCP to consider to discontinue coumadin (6) DVT prophylaxis: Coumadin CODE STATUS FULL CODE Disposition Discharge home today Follow up with ID dr. Andrew in 2 weeks Follow up with PCP Dr. De Los Santos Subjective Pt was seen and examined Sitting in bed with no distress Pt said that she feels fine Denies any chest pain, palpitation, dizziness and SOB Physical Exam Physical Exam: General- No acute distress Head- Trauma to posterior scalp with golf-ball sized area of erythema Eyes- PERRL, EOMI, ENT- oropharynx clear Neck- supple, no JVD Lungs- clear to auscultation Heart- regular rhythm; no murmur Abdomen- normal bowel sounds, soft, nontender Extremities- no calf tenderness Neuro- alert, oriented x 3; PERRL, EOMI; no facial palsy; no dysarthria Skin- warm & dry Results & Data Vital Signs (Past 12 Hours) Vital Signs Temp Pulse Pulse Resp BP Pulse Ox 09/21/18 15:35 36.6 C 77 18 136/80 93 09/21/18 07:58 36.9 C 60 16 127/69 92 (1) Sepsis Sepsis type: sepsis due to unspecified organism Qualified Code(s): A41.9 - Sepsis, unspecified organism
--- NOTE | 2018-09-23 08:02 | Discharge Summary ---
Date of Service September 21, 2018 Admission HPI Per Admitting Provider CHIEF COMPLAINT: Fever and fall. HISTORY OF PRESENT ILLNESS: This is a 67-year-old female with past medical history significant for type 2 diabetes, bilateral pulmonary embolism on Coumadin, COPD, pulmonary hypertension, hypertension, obesity, GERD, stress urinary incontinence, sacroiliitis, primary osteoarthritis, tobacco use disorder, who lives with his daughter. Ambulates without any help, presents with fall at home. The patient was here in the ER last night and was found to have pyelonephritis and she was given 2 grams of Rocephin and patient wanted to be discharged and she was discharged on cefdinir 300 mg twice daily for 10 days. After going home, today she lost balance and fell at home, hit at the back of her head and came back with complaints of pain in the back of the head and pain in the coccyx region. The patient was febrile, tachycardic. Point of lactic acid was 1.8. CAT scan imaging studies show CT head was unremarkable, but CT of abdomen and pelvis shows slight left-sided nephrogram with perinephric infiltration. This is most often seen in pyelonephritis and ureteral obstruction. Clinical correlation is advised. Urology was contacted by ER physician, and they are going to come and evaluate the patient. Currently, patient is resting comfortably. She has headaches, no blurred vision, no earache, no runny nose, no sore throat, no difficulty swallowing. Appetite is okay. No chest pain. She has some shortness of breath and some dry cough. She states she still smokes. No nausea, no vomiting, no abdominal pain. No hematuria. Denies any burning micturition. No diarrhea or constipation, no blood in the stools or black stools. No swelling in the legs, no rash. Admission Exam Per Admitting Provider GENERAL: The patient is alert and oriented. The patient is obese, not in acute distress. VITAL SIGNS: T-max 39.1, pulse in the 120s, respiratory rate 20, blood pressure 118/86, oxygen 93% on room air. HEENT: No pallor, no icterus. Pupils equal, round, and reactive to light. NECK: No JVD, no neck masses, no carotid bruits. CARDIOVASCULAR: S1, S2 heard. Tachycardia. No murmurs. RESPIRATORY SYSTEM: Normal AP diameter. No accessory muscle use. Occasional wheezing, no crackles. ABDOMEN: Soft, bowel sounds present, nontender. No distention. No CVA tenderness. CENTRAL NERVOUS SYSTEM: Cranial nerves II-XII grossly intact, nonfocal. EXTREMITIES: No edema, no erythema. Principal Diagnosis Sepsis: E coli bacteremia Pyelonephritis History of pulmonary embolism Discharge Exam General- No acute distress Head- Trauma to posterior scalp with golf-ball sized area of erythema Eyes- PERRL, EOMI, ENT- oropharynx clear Neck- supple, no JVD Lungs- clear to auscultation Heart- regular rhythm; no murmur Abdomen- normal bowel sounds, soft, nontender Extremities- no calf tenderness Neuro- alert, oriented x 3; PERRL, EOMI; no facial palsy; no dysarthria Skin- warm & dry Discharge Data Allergies Allergy/AdvReac Type Severity Reaction Status Date / Time No Known Allergies Allergy Verified 09/17/18 17:09 Consultations 09/17/18 18:54 ED Decision to Admit Stat 09/17/18 20:26 Consult Urology Routine 09/19/18 00:25 Consult Infectious Diseases Routine Ordered Studies 09/17/18 16:54 CT abd pelvis wo con Stat 09/17/18 17:20 CT cervical spine wo con Stat CT head/brain wo con Stat CT head/brain wo con CLINICAL HISTORY: Head pain status post trauma COMPARISON STUDY: 06/05/2018 TECHNIQUE: Axial CT of the brain is performed from the vertex to the skull base. IV contrast was not administered for this examination. A dose lowering technique was utilized adhering to the principles of ALARA. CT DOSE: 5635.60 mGy.cm FINDINGS: No intra or extra-axial mass lesions are visualized. There is no CT evidence of acute cortical infarction. There is no evidence of midline shift. There is no acute hemorrhage. No calvarial fractures are visualized. There are patchy white matter hypodensities likely on a small vessel basis. There is no evidence of pathologic ventricular dilatation. There is no evidence of acute sinusitis. There is a posterior scalp contusion. The study is mildly compromised due to motion artifact. IMPRESSION: 1. Mildly compromised study due to motion artifact 2. Posterior scalp contusion 3. No acute intracranial findings Electronically signed by: Karan Mancilla M.D. 09/17/2018 5:58 PM Dictated: 09/17/18 1753 Transcribed: 09/17/[address] OF THE CERVICAL SPINE CLINICAL HISTORY: Neck pain status post trauma COMPARISON STUDY: Soft tissue neck CT dated 06/05/2018 CT DOSE: TECHNIQUE: CT scan of the cervical spine was performed from the skull base to the thoracic inlet. Images are reviewed in the axial, sagittal, and coronal planes. IV contrast was not administered for this examination. A dose lowering technique was utilized adhering to the principles of ALARA. FINDINGS: There is no evidence of pneumothorax. There is a stable multinodular left lobe thyroid gland with nodules measuring up to 19 mm. The prevertebral soft tissues are normal. No fractures or subluxations are visualized. There are multilevel degenerative changes IMPRESSION: 1. No evidence of acute fracture or traumatic subluxation. 2. Stable multinodular thyroid gland. Electronically signed by: Karan Mancilla M.D. 09/17/2018 5:59 PM Dictated: 09/17/181754 Transcribed: 09/17/181757 CT SCAN OF THE ABDOMEN AND PELVIS WITHOUT CONTRAST CLINICAL HISTORY: Midabdominal pain. History of trauma. Left renal calculus. Possible sepsis. COMPARISON STUDY: 09/17/2018, 2:05 AM TECHNIQUE: CT scan of the abdomen and pelvis was performed from the lung bases to the proximal femurs. Images are reviewed in the axial, sagittal, and coronal planes. IV contrast was not administered for this examination. A dose lowering technique was utilized adhering to the principles of ALARA. CT DOSE: FINDINGS: Lower chest: There are mild dependent atelectatic changes. Liver: There is severe hepatic steatosis. No focal masses are visualized. Gallbladder: There is vicarious excretion within the gallbladder. Spleen: Borderline enlarged measuring 12.2 cm Pancreas: Unremarkable. Adrenal glands: Unremarkable. Kidneys: There is a 16 mm right renal cortical cyst. There is a nonobstructing 2 mm left renal calculus. There is a punctate nonobstructing right renal calculus. There is a striated left-sided nephrogram. There is left-sided perinephric stranding. A striated nephrogram is most often seen in acute ureteral obstruction and pyelonephritis. Renal vein thrombosis and renal contusion can also demonstrate this pattern. There are several small calcifications within the pelvis in close proximity to the left ureter. Although vascular calcifications are favored, a distal ureteral calculus cannot be excluded with certainty. If further workup is deemed clinically necessary, a CT urogram could be obtained in follow-up in attempt to opacify the ureter and determine whether these calcifications or ureteral or extra ureteral. Bowel: There are no transition zones to indicate bowel obstruction. There is no acute diverticulitis. The appendix is not visualized with certainty. There are no findings to indicate acute appendicitis. Peritoneum: There is no intraperitoneal free air or abdominal ascites. Vasculature: Atheromatous calcifications are present within the aorta and iliac vessels. There is no aneurysm Adenopathy: None. Pelvic viscera: The uterus is surgically absent Skeletal structures: No destructive osseous lesions are seen. IMPRESSION: 1. No evidence of bowel obstruction. No evidence of free air 2. Severe hepatic steatosis 3. Bilateral nephrolithiasis 4. Striated left-sided nephrogram with perinephric infiltration. This is most often seen in pyelonephritis and ureteral obstruction. Clinical correlation in this regard is advocated. 5. Left pelvic basin calcifications, vascular versus ureteral calculi without significant hydronephrosis Electronically signed by: Karan Mancilla M.D. 09/17/2018 6:13 PM Dictated: 09/17/18 1759 Transcribed: 09/17/18 1813 XR chest 1V portable CLINICAL HISTORY: fever COMPARISON STUDY: 06/05/2018 FINDINGS: The heart is enlarged. There are low lung volumes with hypoventilatory changes the lung bases. There is no lobar consolidation. There are no significant pleural effusions.[ IMPRESSION: No significant change from the prior study. Persistent cardiomegaly, low lung volumes, and hypoventilatory changes at the lung bases. No evidence of lobar consolidation Electronically signed by: Karan Mancilla M.D. 09/17/2018 5:29 PM Dictated: 09/17/18 1728 Transcribed: 09/17/18 1728 Hospital Course (1) Sepsis: (2) E coli bacteremia: Blood cx positive for Ecoli Received IV rocephinx 3 days ID on board and recommended to transition to o Cefdinir 300mg BID for 2 to 4 weeks Pt already had a prescription for 10 days course Cefdinir, will give script for an additional 7 days course abx Follow up with ID outpatient in 2 to 4 weeks (3) Pyelonephritis: CT abd/pelvis showed Striated left-sided nephrogram with perinephric infiltration. Urine cx positive for Ecoli Urology on board and no surgical indication On IV rocephin that will transition to oral cefdinir on discharge (4) Diabetes mellitus, type 2: Resume Metformin on discharge Hba1c 7.7 (09/18/18 Continue monitor (5) History of pulmonary embolism: Lungs have been clear of thrombus for the past 4 months--CTA in May and August both without evidence of PE on them. has been on coumadin for over 1 year as per pt Will defer to PCP to consider to discontinue coumadin (6) DVT prophylaxis: Coumadin CODE STATUS FULL CODE Disposition Discharge home today Follow up with ID dr. Andrew in 2 weeks Follow up with PCP Dr. De Los Santos Total Time Total Time Spent Total Time Spent (In Minutes): 35 minutes Total Time Includes: Examination of the Patient, Discharge Planning, Medication Reconciliation, Communication With Other Providers and Other Discharge Plan Discharge Items Patient Disposition: Home - Self-Care Reason For Visit: FALL Discharge Diagnosis: Sepsis: E coli bacteremia Pyelonephritis History of pulmonary embolism Discharge Goals: Decrease discomfort, Improve disease control, Improve function and Increase independence Activity: Resume your previous activity Activity Comment: as tolerated Non-emergency contact: Primary Care Provider and Urologist Call non-emergency contact if: you have any medication questions and your temperature is above 101 Follow-up/Referrals: Maryann De Los Santos, [Primary Care Provider] - Diet: Carb Consistent or DM2 Addtl Provider Instructions: Follow up with your primary care provider Dr. De Los Santos on 09/27 @ 2:05 PM Follow up with infectious disease Dr. Andrew in 2 weeks (please call to schedule for the follow up appointment) Follow up with urology Dr. Tran (Already had an appointment for next week) Complete 2 weeks course of antibiotic (Already had a prescription for 10days course of antibiotic. Will give an additional script for 7 more days) Follow up with the coumadin clinic (Continue monitor PT/INR) Continue coumadin Will defer to you primary care physician on when to discontinue the coumadin Prescriptions: Continued metformin 500 mg tablet 1,000 mg PO BID RF: 0 warfarin 5 mg tablet 7.5 mg PO 2XWK RF: 0 warfarin 5 mg tablet 5 mg PO 5XWK RF: 0 omeprazole 20 mg capsule,delayed release(DR/EC) 20 mg PO BID RF: 0 montelukast 10 mg tablet 10 mg PO HS RF: 0 gabapentin 100 mg capsule 200 mg PO BID RF: 0 metoprolol tartrate 25 mg tablet 25 mg PO BID RF: 0 levocetirizine 5 mg tablet 5 mg PO DAILY PRN (Reason: Allergy Symptoms) RF: 0 furosemide [Lasix] 20 mg Tablet 20 mg PO DAILY PRN (Reason: Edema) RF: 0 PreserVision AREDS-2 1 cap 1 cap PO DAILY RF: 0 ipratropium-albuterol 3 ml 3 ml inhalation Q4H PRN (Reason: Shortness Of Breath Or Wheezing) RF: 0 cefdinir 300 mg capsule 300 mg PO BID 7 Days Qty: 14 RF: 0 Stand-Alone Forms: [facility] Discharge Orders: Discharge Order (Routine); Ordered 09/21/18 Ordered By: David Mirza Admission Data Admit Date/Time: 09/17/18 19:46 Attending Provider: David Mizra Admit Provider: Butch Forrester Primary Care Provider: Maryann De Los Santos Other Providers: Butch Forrester ; Yury Gautam ; Nicholas Andrew ; Veronica Rader Service: Medical Other Interventions: Discharge Summary Assessment (RN) Last Done: 09/21/18 16:57 DC Date/Time DO NOT enter until pt leaves facility: 09/21/18 17:21
--- NOTE | 2018-09-24 12:50 | Coding Query ---
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 Please assist us with the question(s) below: Coding Question(s): Metabolic Encephalopathy was documented in the 09/18 progress note only; also, confusion was noted in the ED report. Please clarify if patient had metabolic encephalopathy upon admission. Thank you so much for your help! ( ) Metabolic Encephalopathy, POA ( ) Confusion only, POA ( X) Other, explain No Encephalopathy on admission Thank you! Roberta Laboy Principal Diagnosis: "that condition established after study, to be chiefly responsible for occasioning the admission of the patient to the hospital for care." Co-Existing Principal Diagnosis: "when two or more diagnoses equally meet the criteria for principal diagnosis as determined by the circumstances of admission, diagnostic work up, and/or therapy provided, and the Alphabetic Index, Tabular List, or another coding guideline does not provide sequencing direction, any one of the diagnoses may be sequenced first." "When the physician has documented what appears to be a current diagnosis in the body of the record, but has not included the diagnosis in the final diagnostic statement, the physician should be asked whether the diagnosis should be added." (Source [facility]oding [facility] 2 QTR90. p3-4) PRIYANKA
== END 2018-09-21 17:21 | disposition home or self-care (01) | DRG 872 ==
LOC: ED 16:20 → SUATTDRO 19:46 → 2S 19:46 → 3N 09-18 12:34